=== PATIENT | female | born 1995 | race Caucasian/White ===

== ENCOUNTER → 2017-03-09 | Outpatient (CLI) | payer BC, OTHER, SELFPAY | PROVIDERS: Visit Provider Nurse Practitioner Obstetrics & Gynecology | DX: Z34.80 Encounter for supervision of other normal pregnancy, unspecified trimester (principal) | CPT/HCPCS: 86403 ==

== ENCOUNTER 2017-03-29 10:07 | Inpatient (IN) | payer BC, OTHER, SELFPAY ==
[2017-03-29] VITALS (25 sets, daily range): BP systolic 87–171; BP diastolic 42–118; PULSE 54–107; RESP 12–18; TEMP 36.2–36.6; O2SAT 95–99; BMI 34.9
--- NOTE | 2017-03-29 10:07 | HMH.ACPN ---
Internal Medicine - PN: Subj *Date: 03/29/17 *Time: 10:07 Interval history: She is a 21-year-old 3 para 2 who is 38+ weeks gestational age. She complained of losing her mucous plug. On arrival her blood pressure is extremely elevated and now it is 160/103. The nonstress test is decreased [id number] variability with an occasional mild variable. Since she is scheduled for a in 2 days we will go ahead and do a today. Exam Vital signs and Labs for Last 24 Hours: Temp Pulse Resp BP Pulse Ox 97.8 F 70 18 167/118 99 03/29/17 09:30 03/29/17 09:30 03/29/17 09:30 03/29/17 09:30 03/29/17 09:30 - Constitutional no acute distress Assessment and Plan (1) induced hypertension, delivered, current hospitalization Current visit: Yes Status: Acute Category: Medical Code(s): O13.4 - Gestational [-induced] hypertension without significant proteinuria, complicating childbirth (2) Previous section Current visit: Yes Status: Acute Category: Surgical Code(s): Z98.891 - History of uterine scar from previous surgery (3) Previous section complicating Current visit: Yes Status: Acute Category: Surgical Code(s): O34.219 - Maternal care for unspecified type scar from previous delivery (4) Sterilization Current visit: Yes Status: Acute Category: Medical Code(s): Z30.2 - Encounter for sterilization - Assessment and plan all Dx Assessment and Plan for all problems:: She has Jacobo signed her consents for a and tubal ligation. We will go ahead and schedule that for today. We will start magnesium sulfate and do blood work for PIH.
[2017-03-29 10:13] LABS: Basophils # 0.1 K/mm3 (0-0.2); Basophils % 0.9 % (0.1-2.0); Eosinophils # 0.5 K/mm3 (0.0-0.4); Eosinophils % 4.1 % (0.1-12.0); Hematocrit 40.3 % (37.0-47.0); Hemoglobin 13.3 g/dL (12.2-16.2); Lymphocytes # 4.1 K/mm3 (0.7-4.5); Lymphocytes % 33.1 K/mm3 (10-50); Mean Corpuscular HGB Conc 32.9 g/dL (31.8-35.4); Mean Corpuscular Hemoglobin 26.8 pg (27.0-31.2); Mean Corpuscular Volume 81.3 fl (81-99); Mean Platelet Volume 9.4 fl (7.4-10.4); Monocytes # 0.7 K/mm3 (0.1-1.0); Monocytes % 5.8 % (1.7-9.3); Neutrophils # 6.9 K/mm3 (1.8-7.8); Neutrophils % 56.1 % (37.0-80.0); Platelet Count 312 K/mm3 (142-424); Red Blood Count 4.95 M/mm3 (4.20-5.40); White Blood Count 12.4 K/mm3 (4.8-10.8)
[2017-03-29 10:31] LABS: Alanine Aminotransferase 9 U/L (12-78); Anion Gap 15.5 mEq/L (5-15); Aspartate Amino Transferase 19 U/L (15-37); Blood Urea Nitrogen 20 mg/dL (7-18); Carbon Dioxide 22 mmol/L (21.0-32.0); Chloride 108 mmol/L (98-107); Creatinine Clearance Estimated 121 mL/min (0-300); Creatinine,Serum 1.04 mg/dL (0.55-1.02); Estimated Glomerular Filt Rate 67 ml/min (>60); GFR (African American) 81 ML/MIN (>60); Glucose 87 mg/dL (74-106); Potassium 4.5 mmoL/L (3.5-5.1); Sodium 141 mmol/L (136-145); Uric Acid 7.3 mg/dL (2.6-7.2)
[2017-03-29 10:36] LABS: D-Dimer 691 (0-400)
[2017-03-29 10:45] LABS: Activated Partial Thrombo Time 29.7 seconds (23.6-34.0); Fibrinogen 400 mg/dL (204-500); INR 0.88 (0.9-1.1); Prothrombin Time 9.5 seconds (9.4-11.8)
--- NOTE | 2017-03-29 10:46 | PC.NURSE ---
DR ALEXANDRE NOTIFED OF D DIMER RESULT 691. NO NEW ORDERS RECEIVED.
[2017-03-29 11:08] LABS: Microscopic, Urine URINE MICROSCOPIC (MICROSCOPIC)
--- NOTE | 2017-03-29 11:24 | HMH.ANESCL ---
[facility] Anesthesia Checklist - Patient Identification Patient Identification: Arm Band, Verbal (Name & ) - Structural Data Admitted From: Home Consent for Planned Operative Procedure(s) Verified: Yes Verified Documents: Surgical Consent - NPO Status Verified Time NPO: 06:30 - Additional verifications Patient : Yes Anesthesia Reactions: No Blood Transfusion Reaction: No Cephalosporin Allergy: Yes Previous Colonoscopy: No - Cardiovascular Assessment Heart Sounds: S1 & S2 Pulse Strength: Strong Pulse Rhythm: Regular - Airway Assessment C-Spine Mobility Assessed: Yes TMJ Mobility Assessed: Yes Dentition: Good Dentition - Neurological Assessment Level of Consciousness: Awake, Alert, Appropriate Hx Seizures: No Numbness or tingling in extremities: No - Genitourinary Assessment Urinary Incontinence: None - Anesthesia Plan Anesthesia Risk discussed: Yes Anesthesia Plan: Verified ASA Class: II Anesthesia Type: Spinal [facility] Anesthesia HX I have reviewed the patient's past medical history: Yes Medical History: Reports:: Asthma, Hypertension Other Medical History: Reports: Thyroid Disease Other Surgeries: Yes: Appendectomy, , Hernia Repair *Family Hx:: No significant family history
[2017-03-29 11:26] LABS: Appearance,Urine CLEAR (Clear); Bilirubin,Urine Negative (Negative); Blood, Urine TRACE-I (Negative); Color,Urine YELLOW (Yellow); Glucose,Urine (UA) Negative (Negative); Ketones,Urine Negative (Negative); Leukocyte Esterase,Urine Negative (Negative); Nitrate,Urine Negative (Negative); Protein,Urine 3+ (Negative); Urobilinogen,Urine 0.2 EU/dl (0.2)
--- NOTE | 2017-03-29 11:28 | P.PN_ITS ---
[facility] Anesthesia Checklist - Patient Identification Patient Identification: Arm Band, Verbal (Name & ) - Structural Data Admitted From: Home Consent for Planned Operative Procedure(s) Verified: Yes Verified Documents: Surgical Consent - NPO Status Verified Time NPO: 06:30 - Additional verifications Patient : Yes Anesthesia Reactions: No Blood Transfusion Reaction: No Cephalosporin Allergy: Yes Previous Colonoscopy: No - Cardiovascular Assessment Heart Sounds: S1 & S2 Pulse Strength: Strong Pulse Rhythm: Regular - Airway Assessment C-Spine Mobility Assessed: Yes TMJ Mobility Assessed: Yes Dentition: Good Dentition - Neurological Assessment Level of Consciousness: Awake, Alert, Appropriate Hx Seizures: No Numbness or tingling in extremities: No - Genitourinary Assessment Urinary Incontinence: None - Anesthesia Plan Anesthesia Risk discussed: Yes Anesthesia Plan: Verified ASA Class: II Anesthesia Type: Spinal [facility] Anesthesia HX I have reviewed the patient's past medical history: Yes Medical History: Reports:: Asthma, Hypertension Other Medical History: Reports: Thyroid Disease Other Surgeries: Yes: Appendectomy, , Hernia Repair *Family Hx:: No significant family history
[2017-03-29 11:39] LABS: RBC,Urine Occasional #/hpf (0-3); WBC,Urine Occasional #/hpf (0-3)
[2017-03-29 11:40] LABS: Amorphous Sediment,Urine 2+ /lpf; Bacteria,Urine Trace /lpf
--- NOTE | 2017-03-29 14:07 | HMH.OPNOTE ---
Date of procedure: 03/29/17 Pre-op Diagnosis:: Term , AV section, desire for sterilization, nonreassuring heart rate tracing, desire for sterilization Post-op diagnosis:: other (Oligohydramnios, small for gestational age) Procedure performed:: Repeat lower segment transverse section and bilateral salpingectomy Surgeon:: Sridhar Griffith MD Crusher And Blender Operator(s):: Tracey Membreno VEHICLE MAINTENANCE TECHNICIAN:: Jeff Harper Anesthesia: epidural Estimated blood loss (mL): 600 Clinical Note:: She is a 21-year-old 4 para 2 aborta 1 who was 38 and 5 weeks gestational age. She came in with having lost her mucous plug. However was noted on the monitor that she was having spontaneous irritable decelerations did this drip was also nonreactive. She was scheduled for a repeat lower segment transverse section 2 days as well as a bilateral salpingectomy. Her blood pressure on arrival was 160/109. She received IV magnesium sulfate and we elected to go ahead and deliver her today. Operative findings:: She delivered a liveborn child at 1:27 PM in the afternoon of March 29, 2017. The baby had Apgars of 8 at 1 minute and 9 at 5 minutes. PH was 2 6. Ovaries and tubes appeared normal. There was significant scar tissue upon entering the abdominal cavity as well as underlying the skin. Operative note:: She was taken to the operating room where epidural anesthesia was found be adequate. She was prepped and draped in normal sterile fashion in the supine position with a leftward tilt. A Zuñiga catheter was in the bladder. A Pfannenstiel skin incision was made with knife then carried through to the underlying layer of fascia with cautery. The fascia was opened in the midline with cautery and extended laterally using Barton scissors. Sabine clamps were applied to the superior aspect of the fascial incision which was tented up and the underlying rectus muscles dissected off using cautery. The Sabine clamps were then applied to the inferior aspect of the fascial incision which in a similar fashion was tented up and the underlying rectus muscles dissected off using cautery. The rectus muscles were then in the midline, the peritoneum identified, and entered sharply with Metzenbaum scissors. This incision was then extended superiorly and inferiorly with cautery. We had good visualization of the bladder inferiorly. The bladder peritoneum was then opened in the midline and extended laterally using Metzenbaum scissors. A bladder flap was created digitally. The lower blade of the Aniya was inserted so as to push the bladder out of the way. Transverse incision was made through the uterine muscle to the amnion. This incision was then extended laterally using fingers traction. The amnion was entered sharply with knife. The infant's head was then delivered atraumatically. There was a loose nuchal cord which was easily reduced. This was followed by the anterior shoulder and the rest of the 's body atraumatically. The oropharynx and nasopharynx were bulb suctioned. The was then handed off to Dr. Rodriguez who assigned Apgars of 8 at 1 minute and 9 at 5 minutes. We then obtained cord blood as well as cord pH. PH was 7.26. Using gentle traction on the cord and countertraction on the fundus I was able to easily deliver the placenta intact. It had a normal three-vessel cord. The uterus was then cleared of clots and debris and exteriorized from the abdominal cavity. The uterine incision was then closed using running 0 Vicryl suture in a locked fashion. A second layer of the same suture was used to imbricate the first layer. The bladder peritoneum was then closed using running 2-0 Vicryl suture in a locked fashion. We then performed a bilateral salpingectomy by first grasping the distal end of the right tube and using cautery I cauterized along the mesosalpinx. I then cauterized through the tube at the cornua. This was sent to pathology at this was tati
--- NOTE | 2017-03-29 14:11 | P.OP_ITS ---
Date of procedure: 03/29/17 Pre-op Diagnosis:: Term , AV section, desire for sterilization, nonreassuring heart rate tracing, desire for sterilization Post-op diagnosis:: other (Oligohydramnios, small for gestational age) Procedure performed:: Repeat lower segment transverse section and bilateral salpingectomy Surgeon:: Sridhar Griffith MD Ground Instructor Advanced(s):: Tracey Membreno CIVIL ENGINEERING MANAGER:: Jeff Harper Anesthesia: epidural Estimated blood loss (mL): 600 Clinical Note:: She is a 21-year-old 4 para 2 aborta 1 who was 38 and 5 weeks gestational age. She came in with having lost her mucous plug. However was noted on the monitor that she was having spontaneous irritable decelerations did this drip was also nonreactive. She was scheduled for a repeat lower segment transverse section 2 days as well as a bilateral salpingectomy. Her blood pressure on arrival was 160/109. She received IV magnesium sulfate and we elected to go ahead and deliver her today. Operative findings:: She delivered a liveborn child at 1:27 PM in the afternoon of March 29, 2017. The baby had Apgars of 8 at 1 minute and 9 at 5 minutes. PH was 2 6. Ovaries and tubes appeared normal. There was significant scar tissue upon entering the abdominal cavity as well as underlying the skin. Operative note:: She was taken to the operating room where epidural anesthesia was found be adequate. She was prepped and draped in normal sterile fashion in the supine position with a leftward tilt. A Zuñiga catheter was in the bladder. A Pfannenstiel skin incision was made with knife then carried through to the underlying layer of fascia with cautery. The fascia was opened in the midline with cautery and extended laterally using Barton scissors. Sabine clamps were applied to the superior aspect of the fascial incision which was tented up and the underlying rectus muscles dissected off using cautery. The Sabine clamps were then applied to the inferior aspect of the fascial incision which in a similar fashion was tented up and the underlying rectus muscles dissected off using cautery. The rectus muscles were then in the midline, the peritoneum identified, and entered sharply with Metzenbaum scissors. This incision was then extended superiorly and inferiorly with cautery. We had good visualization of the bladder inferiorly. The bladder peritoneum was then opened in the midline and extended laterally using Metzenbaum scissors. A bladder flap was created digitally. The lower blade of the Aniya was inserted so as to push the bladder out of the way. Transverse incision was made through the uterine muscle to the amnion. This incision was then extended laterally using fingers traction. The amnion was entered sharply with knife. The infant's head was then delivered atraumatically. There was a loose nuchal cord which was easily reduced. This was followed by the anterior shoulder and the rest of the 's body atraumatically. The oropharynx and nasopharynx were bulb suctioned. The was then handed off to Dr. Rodriguez who assigned Apgars of 8 at 1 minute and 9 at 5 minutes. We then obtained cord blood as well as cord pH. PH was 7.26. Using gentle traction on the cord and countertraction on the fundus I was able to easily deliver the placenta intact. It had a normal three-vessel cord. The uterus was then cleared of clots and debris and exteriorized from the abdominal cavity. The uterine incision was then closed using running 0 Vicryl suture in a locked fashion. A second layer of the same suture was used to imbricate the first layer. The bladder peritoneum was then closed using running 2-0 Vicryl suture in a loc
--- NOTE | 2017-03-29 14:15 | P.PN_ITS ---
[facility] Anesthesia Record Part I Intake, IV Amount: 1,100 Estimated blood loss (mL): 600 Urine output (mL): 300 Blood Pressure: 121/70 SaO2: 97 Pulse Rate: 61 Respiratory Rate: 12 Temperature: 97.1 F Patient is:: Awake Stable to PACU at:: 14:10
--- NOTE | 2017-03-29 14:15 | HMH.ANESII ---
[facility] Anesthesia Record Part II Discharge Time: 14:40 Destination: Obstetric PACU nurse assessment reviewed?: Yes Patient Condition:: Good Anesthesia Complications:: None
[2017-03-29 14:53] LABS: Cord Blood PH 7.26 (7.35-7.45)
--- NOTE | 2017-03-29 17:54 | P.PN_ITS ---
Internal Medicine - PN: Subj *Date: 03/29/17 *Time: 17:53 Interval history: She has been having some bleeding . The uterus seems well contracted. She has passed a couple of golf ball size clots. I elected to place balloon. Exam Vital signs and Labs for Last 24 Hours: Temp Pulse Resp BP Pulse Ox 97.8 F 62 16 125/68 97 03/29/17 14:40 03/29/17 14:40 03/29/17 14:40 03/29/17 14:40 03/29/17 14:40 Laboratory Results - last 24 hr 03/29/17 09:55: Blood Type B Negative, Antibody Screen Negative 03/29/17 09:55: WBC 12.4 H, RBC 4.95, Hgb 13.3, Hct 40.3, MCV 81.3, MCH 26.8 L, MCHC 32.9, RDW 14.0, Plt Count 312, MPV 9.4, Neut % (Auto) 56.1, Lymph % (Auto) 33.1, [place] % (Auto) 5.8, Eos % (Auto) 4.1, Baso % (Auto) 0.9, Neut # (Auto) 6.9 , Lymph # (Auto) 4.1, [place] # (Auto) 0.7, Eos # (Auto) 0.5 H, Baso # (Auto) 0.1 03/29/17 09:55: PT 9.5, INR 0.88 L, APTT 29.7, Fibrinogen 400, D-Dimer 691 H* 03/29/17 09:55: Sodium 141, Potassium 4.5, Chloride 108 H, Carbon Dioxide 22, Anion Gap 15.5 H, BUN 20 H, Creatinine 1.04 H, Estimated Creat Clear 121, Estimated GFR 67, Est GFR ( Amer) 81, Glucose 87, Uric Acid 7.3 H, AST 19 , ALT 9 L 03/29/17 10:20: Urine Color Yellow, Urine Appearance Clear, Urine pH 6.0, Ur Specific [place] 1.020, Urine Protein 3+, Urine Glucose (UA) Negative, Urine Ketones Negative, Urine Blood Trace-i, Urine Nitrate Negative, Urine Bilirubin Negative, Urine Urobilinogen 0.2, Ur Leukocyte Esterase Negative, Urine RBC Occasional, Urine WBC Occasional, Ur Squamous Epith Cells 3-5, Amorphous Sediment 2+, Urine Bacteria Trace 03/29/17 13:30: Cord ABG pH 7.26 L I & O for Last 24 hours: Intake & Output 03/27/17 03/28/17 03/29/17 03/30/17 11:59 11:59 11:59 11:59 Intake Total 2450 / 2450 Output Total 105 / 105 Balance 2345 / 2345 - Constitutional no acute distress Assessment and Plan (1) induced hypertension, delivered, current hospitalization Current visit: Yes Status: Acute Category: Medical Code(s): O13.4 - Gestational [-induced] hypertension without significant proteinuria, complicating childbirth (2) Previous section Current visit: Yes Status: Acute Category: Surgical Code(s): Z98.891 - History of uterine scar from previous surgery (3) Previous section complicating Current visit: Yes Status: Acute Category: Surgical Code(s): O34.219 - Maternal care for unspecified type scar from previous delivery (4) Sterilization Current visit: Yes Status: Acute Category: Medical Code(s): Z30.2 - Encounter for sterilization - Assessment and plan all Dx Assessment and Plan for all problems:: She is having bleeding and I have inserted a balloon catheter. We injected 240 cc of saline. Her bleeding seems to have settled.
[2017-03-29 18:29] LABS: Hematocrit 37.3 % (37.0-47.0)
--- NOTE | 2017-03-29 20:15 | PC.NURSE ---
PT REFUSED TORODOL AT THIS TIME. PTS RATES PAIN A 5/10 PTS BP DROPPED AFTER PAIN MEDICATION AT 1901 AND PT NOT WANTING MEDICATION AT THIS TIME WILL CONTINUE TO MONITOR PAIN
[2017-03-30] VITALS (28 sets, daily range): BP systolic 106–152; BP diastolic 59–90; PULSE 68–100; RESP 17–20; TEMP 36.5–37; O2SAT 94–100
[2017-03-30 06:35] LABS: Basophils # 0.1 K/mm3 (0-0.2); Eosinophils % 0.1 % (0.1-12.0); Mean Corpuscular Hemoglobin 26.4 pg (27.0-31.2); Monocytes # 1.4 K/mm3 (0.1-1.0); Red Cell Distribution Width 14.2 % (11.5-17.5)
[2017-03-30 06:53] LABS: Basophils % 0.2 % (0.1-2.0); Hematocrit 30.5 % (37.0-47.0); Lymphocytes % 13.4 K/mm3 (10-50); Mean Corpuscular HGB Conc 31.3 g/dL (31.8-35.4); Mean Corpuscular Volume 84.4 fl (81-99); Mean Platelet Volume 10.2 fl (7.4-10.4); Monocytes % 4.6 % (1.7-9.3); Neutrophils % 81.6 % (37.0-80.0); Platelet Count 341 K/mm3 (142-424); Red Blood Count 3.61 M/mm3 (4.20-5.40); White Blood Count 29.4 K/mm3 (4.8-10.8)
[2017-03-30 06:59] LABS: Hemoglobin 9.5 g/dL (12.2-16.2)
[2017-03-30 07:01] LABS: MANUAL DIFFERENTIAL MANUAL DIFFERENTIAL (MANUAL DIFF)
--- NOTE | 2017-03-30 07:44 | HMH.PHAVTE ---
[facility] Pharmacy VTE Monitoring - Patient Demographics Admission date: 03/29/17 Report Date: 03/30/17 Time: 07:44 Allergies/Adverse Reactions: Penicillins Allergy (Intermediate, Verified 03/29/17 12:41) I-RASH peanut Allergy (Unknown, Verified 03/29/17 12:41) Allergy test showed pt allergic to peanuts Height: 1.6 m Weight: 89.471 kg Patient Problems: Current Active Problems induced hypertension, delivered, current hospitalization (Acute) Previous section (Acute) Previous section complicating (Acute) Sterilization (Acute) - VTE Risk Labs: VTE Related Lab Results Hgb 9.5 g/dL (12.2-16.2) L D 03/30/17 06:06 Hct 30.5 % (37.0-47.0) L 03/30/17 06:06 Plt Count 341 K/mm3 (142-424) 03/30/17 06:06 PT 9.5 seconds (9.4-11.8) 03/29/17 09:55 INR 0.88 (0.9-1.1) L 03/29/17 09:55 APTT 29.7 seconds (23.6-34.0) 03/29/17 09:55 Fibrinogen 400 mg/dL (204-500) 03/29/17 09:55 BUN 20 mg/dL (7-18) H 03/29/17 09:55 Creatinine 1.04 mg/dL (0.55-1.02) H 03/29/17 09:55 Estimated Creat Clear 121 mL/min (0-300) 03/29/17 09:55 Clinical Trial Participant: No - Prophylaxis VTE Prophylaxis Ordered?: Yes Types of VTE Prophylaxis: IPCS Knee High
[2017-03-30 07:58] LABS: Hypochromasia 1+; Lymphocytes % 17 % (10-50); Monocytes % 5 % (2-9); Neutrophils % 75 % (42-76); Platelet Estimate Normal; Total Cells Counted 100
--- NOTE | 2017-03-30 08:02 | HMH.ACPN ---
Internal Medicine - PN: Subj *Date: 03/30/17 *Time: 08:02 Interval history: She is doing better this morning. We had inserted an intrauterine balloon yesterday and she is no longer bleeding. I removed the balloon this morning. Pain is reasonably well controlled. Her lochia is normal. She is bottlefeeding. Exam Vital signs and Labs for Last 24 Hours: Temp Pulse Resp BP Pulse Ox 97.6 F 78 16 134/75 96 03/29/17 14:50 03/29/17 20:30 03/29/17 14:40 03/29/17 20:30 03/29/17 19:12 Laboratory Results - last 24 hr 03/29/17 09:25: Magnesium 2.0 03/29/17 09:55: Blood Type B Negative, Antibody Screen Negative 03/29/17 09:55: WBC 12.4 H, RBC 4.95, Hgb 13.3, Hct 40.3, MCV 81.3, MCH 26.8 L, MCHC 32.9, RDW 14.0, Plt Count 312, MPV 9.4, Neut % (Auto) 56.1, Lymph % (Auto) 33.1, [place] % (Auto) 5.8, Eos % (Auto) 4.1, Baso % (Auto) 0.9, Neut # (Auto) 6.9, Lymph # (Auto) 4.1, [place] # (Auto) 0.7, Eos # (Auto) 0.5 H, Baso # (Auto) 0.1 03/29/17 09:55: PT 9.5, INR 0.88 L, APTT 29.7, Fibrinogen 400, D-Dimer 691 H* 03/29/17 09:55: Sodium 141, Potassium 4.5, Chloride 108 H, Carbon Dioxide 22, Anion Gap 15.5 H, BUN 20 H, Creatinine 1.04 H, Estimated Creat Clear 121, Estimated GFR 67, Est GFR ( Amer) 81, Glucose 87, Uric Acid 7.3 H, AST 19, ALT 9 L 03/29/17 10:20: Urine Color Yellow, Urine Appearance Clear, Urine pH 6.0, Ur Specific [place] 1.020, Urine Protein 3+, Urine Glucose (UA) Negative, Urine Ketones Negative, Urine Blood Trace-i, Urine Nitrate Negative, Urine Bilirubin Negative, Urine Urobilinogen 0.2, Ur Leukocyte Esterase Negative, Urine RBC Occasional, Urine WBC Occasional, Ur Squamous Epith Cells 3-5, Amorphous Sediment 2+, Urine Bacteria Trace 03/29/17 13:30: Cord ABG pH 7.26 L 03/29/17 18:15: Hgb 12.0 L, Hct 37.3 03/30/17 06:06: WBC 29.4 H* D, RBC 3.61 L D, Hgb 9.5 L D, Hct 30.5 L, MCV 84.4, MCH 26.4 L, MCHC 31.3 L, RDW 14.2, Plt Count 341, MPV 10.2, Neut % (Auto) 81.6 H, Lymph % (Auto) 13.4, [place] % (Auto) 4.6, Eos % (Auto) 0.1, Baso % (Auto) 0.2, Neut # (Auto) 24.0 H, Lymph # (Auto) 4.0, [place] # (Auto) 1.4 H, Eos # (Auto) 0.0, Baso # (Auto) 0.1, Total Counted 100, Neutrophils % (Manual) 75, Band Neutrophils % 2.0, Lymphocytes % (Manual) 17, Monocytes % (Manual) 5, Basophils % (Manual) 1.0, Platelet Estimate Normal, Hypochromasia 1+ I & O for Last 24 hours: Intake & Output 03/27/17 03/28/17 03/29/17 03/30/17 11:59 11:59 11:59 11:59 Intake Total 2450 / 2450 Output Total 105 / 105 Balance 2345 / 2345 - Constitutional no acute distress Assessment and Plan (1) induced hypertension, delivered, current hospitalization Current visit: Yes Status: Acute Category: Medical Code(s): O13.4 - Gestational [-induced] hypertension without significant proteinuria, complicating childbirth (2) Previous section Current visit: Yes Status: Acute Category: Surgical Code(s): Z98.891 - History of uterine scar from previous surgery (3) Previous section complicating Current visit: Yes Status: Acute Category: Surgical Code(s): O34.219 - Maternal care for unspecified type scar from previous delivery (4) Sterilization Current visit: Yes Status: Acute Category: Medical Code(s): Z30.2 - Encounter for sterilization - Assessment and plan all Dx Assessment and Plan for all problems:: Is doing well and I removed her intrauterine balloon. Her hemoglobin is stable. We will plan to send her home in 48 hours.
--- NOTE | 2017-03-30 08:05 | P.PN_ITS ---
Internal Medicine - PN: Subj *Date: 03/30/17 *Time: 08:02 Interval history: She is doing better this morning. We had inserted an intrauterine balloon yesterday and she is no longer bleeding. I removed the balloon this morning. Pain is reasonably well controlled. Her lochia is normal. She is bottlefeeding. Exam Vital signs and Labs for Last 24 Hours: Temp Pulse Resp BP Pulse Ox 97.6 F 78 16 134/75 96 03/29/17 14:50 03/29/17 20:30 03/29/17 14:40 03/29/17 20:30 03/29/17 19:12 Laboratory Results - last 24 hr 03/29/17 09:25: Magnesium 2.0 03/29/17 09:55: Blood Type B Negative, Antibody Screen Negative 03/29/17 09:55: WBC 12.4 H, RBC 4.95, Hgb 13.3, Hct 40.3, MCV 81.3, MCH 26.8 L, MCHC 32.9, RDW 14.0, Plt Count 312, MPV 9.4, Neut % (Auto) 56.1, Lymph % (Auto) 33.1, [place] % (Auto) 5.8, Eos % (Auto) 4.1, Baso % (Auto) 0.9, Neut # (Auto) 6.9 , Lymph # (Auto) 4.1, [place] # (Auto) 0.7, Eos # (Auto) 0.5 H, Baso # (Auto) 0.1 03/29/17 09:55: PT 9.5, INR 0.88 L, APTT 29.7, Fibrinogen 400, D-Dimer 691 H* 03/29/17 09:55: Sodium 141, Potassium 4.5, Chloride 108 H, Carbon Dioxide 22, Anion Gap 15.5 H, BUN 20 H, Creatinine 1.04 H, Estimated Creat Clear 121, Estimated GFR 67, Est GFR ( Amer) 81, Glucose 87, Uric Acid 7.3 H, AST 19 , ALT 9 L 03/29/17 10:20: Urine Color Yellow, Urine Appearance Clear, Urine pH 6.0, Ur Specific [place] 1.020, Urine Protein 3+, Urine Glucose (UA) Negative, Urine Ketones Negative, Urine Blood Trace-i, Urine Nitrate Negative, Urine Bilirubin Negative, Urine Urobilinogen 0.2, Ur Leukocyte Esterase Negative, Urine RBC Occasional, Urine WBC Occasional, Ur Squamous Epith Cells 3-5, Amorphous Sediment 2+, Urine Bacteria Trace 03/29/17 13:30: Cord ABG pH 7.26 L 03/29/17 18:15: Hgb 12.0 L, Hct 37.3 03/30/17 06:06: WBC 29.4 H* D, RBC 3.61 L D, Hgb 9.5 L D, Hct 30.5 L, MCV 84.4, MCH 26.4 L, MCHC 31.3 L, RDW 14.2, Plt Count 341, MPV 10.2, Neut % (Auto) 81.6 H , Lymph % (Auto) 13.4, [place] % (Auto) 4.6, Eos % (Auto) 0.1, Baso % (Auto) 0.2, Neut # (Auto) 24.0 H, Lymph # (Auto) 4.0, [place] # (Auto) 1.4 H, Eos # (Auto) 0.0 , Baso # (Auto) 0.1, Total Counted 100, Neutrophils % (Manual) 75, Band Neutrophils % 2.0, Lymphocytes % (Manual) 17, Monocytes % (Manual) 5, Basophils % (Manual) 1.0, Platelet Estimate Normal, Hypochromasia 1+ I & O for Last 24 hours: Intake & Output 03/27/17 03/28/17 03/29/17 03/30/17 11:59 11:59 11:59 11:59 Intake Total 2450 / 2450 Output Total 105 / 105 Balance 2345 / 2345 - Constitutional no acute distress Assessment and Plan (1) induced hypertension, delivered, current hospitalization Current visit: Yes Status: Acute Category: Medical Code(s): O13.4 - Gestational [-induced] hypertension without significant proteinuria, complicating childbirth (2) Previous section Current visit: Yes Status: Acute Category: Surgical Code(s): Z98.891 - History of uterine scar from previous surgery (3) Previous section complicating Current visit: Yes Status: Acute Category: Surgical Code(s): O34.219 - Maternal care for unspecified type scar from previous delivery (4) Sterilization Current visit: Yes Status: Acute Category: Medical Code(s): Z30.2 - Encounter for sterilization - Assessment and plan all Dx Assessment and Plan for all problems:: Is doing well and I removed her intrauterine balloon. Her hemoglobin is stable. We will plan to send her home in 48 hours.
--- NOTE | 2017-03-30 10:19 | PC.NURSE ---
0800 BACAURI BALLOON REMOVED BY DR. ALEXANDRE AT THIS TIME. PATIENT TOLERATED THIS WELL, TOTAL OF 450 ML OF BLOOD SINCE 1400 03/29/2017 YESTERDAY WAS REMOVED FROM THE COLLECTION BAG. DR. ALEXANDRE WOULD LIKE HER TO GET UP TODAY AND SHOWER AND AMBULATE SOME.
--- NOTE | 2017-03-30 10:24 | PC.NURSE ---
0800 DTR'S DONE ON THE PATIENT AND WERE 1+ PATTELLAR AND NEGATIVE CLONUS AT THIS TIME, PATIENT IS CURRENTLY OFF THE MAGNESIUM DRIP AND HER PITOCIN AT THIS TIME.
--- NOTE | 2017-03-30 11:59 | PC.NURSE ---
DTR'S CHECKED AND NEGATIVE FOR CLONUS, 1+ PATTELLA REFLEX NOTED, STILL DIZZY, DENIES HEADACHE, BLURRED VISION OR SPOTS. MEDICATED AT 11:10 FOR INCISIONAL PAIN 10/10 ON NUMBER PAIN SCALE RATES PAIN 6/10 NOW ON NUMBER PAIN SCALE. DOZING AND RESTING MORE COMFORTABLE. DAD IS HOLDING NB AT THIS TIME.
--- NOTE | 2017-03-30 13:49 | HMH.ACPN ---
Internal Medicine - PN: Subj *Date: 03/30/17 *Time: 13:49 Interval history: She has been feeling lightheaded this morning. Every time she stands up she feels lightheaded. She is very pale looking. Her hemoglobin this morning was 9.5. Exam Vital signs and Labs for Last 24 Hours: Temp Pulse Resp BP Pulse Ox 98.1 F 88 18 106/59 96 03/30/17 11:57 03/30/17 11:57 03/30/17 11:57 03/30/17 11:57 03/30/17 11:57 Laboratory Results - last 24 hr 03/29/17 09:25: Magnesium 2.0 03/29/17 13:30: Cord ABG pH 7.26 L 03/29/17 18:15: Hgb 12.0 L, Hct 37.3 03/30/17 06:06: WBC 29.4 H* D, RBC 3.61 L D, Hgb 9.5 L D, Hct 30.5 L, MCV 84.4, MCH 26.4 L, MCHC 31.3 L, RDW 14.2, Plt Count 341, MPV 10.2, Neut % (Auto) 81.6 H, Lymph % (Auto) 13.4, [place] % (Auto) 4.6, Eos % (Auto) 0.1, Baso % (Auto) 0.2, Neut # (Auto) 24.0 H, Lymph # (Auto) 4.0, [place] # (Auto) 1.4 H, Eos # (Auto) 0.0, Baso # (Auto) 0.1, Total Counted 100, Neutrophils % (Manual) 75, Band Neutrophils % 2.0, Lymphocytes % (Manual) 17, Monocytes % (Manual) 5, Basophils % (Manual) 1.0, Platelet Estimate Normal, Hypochromasia 1+ 03/30/17 10:50: Blood Type B Negative, Antibody Screen Negative, Screen Negative, Baby's Rh Status Positive I & O for Last 24 hours: Intake & Output 03/28/17 03/29/17 03/30/17 03/31/17 11:59 11:59 11:59 11:59 Intake Total 2450 / 2450 Output Total 105 / 105 Balance 2345 / 2345 - Constitutional no acute distress - *Routine Skin Exam Comments: Her skin looks pale. Assessment and Plan (1) induced hypertension, delivered, current hospitalization Current visit: Yes Status: Acute Category: Medical Code(s): O13.4 - Gestational [-induced] hypertension without significant proteinuria, complicating childbirth (2) Previous section Current visit: Yes Status: Acute Category: Surgical Code(s): Z98.891 - History of uterine scar from previous surgery (3) Previous section complicating Current visit: Yes Status: Acute Category: Surgical Code(s): O34.219 - Maternal care for unspecified type scar from previous delivery (4) Sterilization Current visit: Yes Status: Acute Category: Medical Code(s): Z30.2 - Encounter for sterilization - Assessment and plan all Dx Assessment and Plan for all problems:: I suspect she may have some internal bleeding. We will get an H&H right now and we will type and cross her for 2 units. We will monitor her hemoglobin and if she continues to drop we may need to return her to the operating room. Her vital signs are stable. Her blood pressure is stable. Her heart rate is slightly elevated at 88.
--- NOTE | 2017-03-30 13:52 | P.PN_ITS ---
Internal Medicine - PN: Subj *Date: 03/30/17 *Time: 13:49 Interval history: She has been feeling lightheaded this morning. Every time she stands up she feels lightheaded. She is very pale looking. Her hemoglobin this morning was 9.5. Exam Vital signs and Labs for Last 24 Hours: Temp Pulse Resp BP Pulse Ox 98.1 F 88 18 106/59 96 03/30/17 11:57 03/30/17 11:57 03/30/17 11:57 03/30/17 11:57 03/30/17 11:57 Laboratory Results - last 24 hr 03/29/17 09:25: Magnesium 2.0 03/29/17 13:30: Cord ABG pH 7.26 L 03/29/17 18:15: Hgb 12.0 L, Hct 37.3 03/30/17 06:06: WBC 29.4 H* D, RBC 3.61 L D, Hgb 9.5 L D, Hct 30.5 L, MCV 84.4, MCH 26.4 L, MCHC 31.3 L, RDW 14.2, Plt Count 341, MPV 10.2, Neut % (Auto) 81.6 H , Lymph % (Auto) 13.4, [place] % (Auto) 4.6, Eos % (Auto) 0.1, Baso % (Auto) 0.2, Neut # (Auto) 24.0 H, Lymph # (Auto) 4.0, [place] # (Auto) 1.4 H, Eos # (Auto) 0.0 , Baso # (Auto) 0.1, Total Counted 100, Neutrophils % (Manual) 75, Band Neutrophils % 2.0, Lymphocytes % (Manual) 17, Monocytes % (Manual) 5, Basophils % (Manual) 1.0, Platelet Estimate Normal, Hypochromasia 1+ 03/30/17 10:50: Blood Type B Negative, Antibody Screen Negative, Screen Negative, Baby's Rh Status Positive I & O for Last 24 hours: Intake & Output 03/28/17 03/29/17 03/30/17 03/31/17 11:59 11:59 11:59 11:59 Intake Total 2450 / 2450 Output Total 105 / 105 Balance 2345 / 2345 - Constitutional no acute distress - *Routine Skin Exam Comments: Her skin looks pale. Assessment and Plan (1) induced hypertension, delivered, current hospitalization Current visit: Yes Status: Acute Category: Medical Code(s): O13.4 - Gestational [-induced] hypertension without significant proteinuria, complicating childbirth (2) Previous section Current visit: Yes Status: Acute Category: Surgical Code(s): Z98.891 - History of uterine scar from previous surgery (3) Previous section complicating Current visit: Yes Status: Acute Category: Surgical Code(s): O34.219 - Maternal care for unspecified type scar from previous delivery (4) Sterilization Current visit: Yes Status: Acute Category: Medical Code(s): Z30.2 - Encounter for sterilization - Assessment and plan all Dx Assessment and Plan for all problems:: I suspect she may have some internal bleeding. We will get an H&H right now and we will type and cross her for 2 units. We will monitor her hemoglobin and if she continues to drop we may need to return her to the operating room. Her vital signs are stable. Her blood pressure is stable. Her heart rate is slightly elevated at 88.
[2017-03-30 14:14] LABS: Hematocrit 25.3 % (37.0-47.0)
[2017-03-30 14:18] LABS: Hemoglobin 8.1 g/dL (12.2-16.2)
[2017-03-30 15:08] LABS: Microscopic, Urine URINE MICROSCOPIC (MICROSCOPIC)
[2017-03-30 15:10] LABS: Appearance,Urine CLOUDY (Clear); Bilirubin,Urine Negative (Negative); Blood, Urine 3+ (Negative); Color,Urine DK YELLOW (Yellow); Glucose,Urine (UA) Negative (Negative); Ketones,Urine Negative (Negative); Leukocyte Esterase,Urine TRACE (Negative); Nitrate,Urine Negative (Negative); Protein,Urine TRACE (Negative); Specific Gravity, Urine >= 1.030 (1.005-1.030); Urobilinogen,Urine 0.2 EU/dl (0.2)
[2017-03-30 16:31] LABS: Bacteria,Urine 2+ /lpf; RBC,Urine TNTC #/hpf (0-3); WBC,Urine Occasional #/hpf (0-3)
[2017-03-30 16:32] LABS: Hyaline Casts,Urine Occasional #/lpf (0); Transitional Epi Cells,Urine OCC #/lpf (0-3)
[2017-03-30 20:38] LABS: Hematocrit 31.6 % (37.0-47.0)
[2017-03-30 21:02] LABS: Hemoglobin 10.2 g/dL (12.2-16.2)
[2017-03-31 07:18] LABS: Basophils # 0.1 K/mm3 (0-0.2); Basophils % 0.4 % (0.1-2.0); Eosinophils # 0.4 K/mm3 (0.0-0.4); Hematocrit 30.1 % (37.0-47.0); Hemoglobin 9.9 g/dL (12.2-16.2); Lymphocytes # 5.1 K/mm3 (0.7-4.5); Lymphocytes % 27.2 K/mm3 (10-50); Mean Corpuscular HGB Conc 32.8 g/dL (31.8-35.4); Mean Corpuscular Hemoglobin 28.5 pg (27.0-31.2); Mean Corpuscular Volume 86.8 fl (81-99); Mean Platelet Volume 9.4 fl (7.4-10.4); Monocytes # 1.2 K/mm3 (0.1-1.0); Monocytes % 6.5 % (1.7-9.3); Neutrophils % 63.9 % (37.0-80.0); Platelet Count 230 K/mm3 (142-424); Red Blood Count 3.46 M/mm3 (4.20-5.40); Red Cell Distribution Width 14.4 % (11.5-17.5); White Blood Count 18.8 K/mm3 (4.8-10.8)
[2017-03-31 07:37] LABS: MANUAL DIFFERENTIAL MANUAL DIFFERENTIAL (MANUAL DIFF)
--- NOTE | 2017-03-31 08:25 | P.PN_ITS ---
Internal Medicine - PN: Subj *Date: 03/31/17 *Time: 08:23 Interval history: She is doing very well this morning. She is eating and drinking and ambulating. She is bottlefeeding. She received 2 units of blood last night and her hemoglobin is stable at 9.9. It was 10.1 last night. Her pain is well controlled. Her urine output is good. Exam Vital signs and Labs for Last 24 Hours: Temp Pulse Resp BP Pulse Ox 98.0 F 88 17 140/78 94 L 03/30/17 20:35 03/30/17 20:35 03/30/17 20:35 03/30/17 20:35 03/30/17 20:35 Laboratory Results - last 24 hr 03/30/17 10:50: Blood Type B Negative, Antibody Screen Negative, Screen Negative, Baby's Rh Status Positive, Crossmatch (AHG) See Detail 03/30/17 13:51: Hgb 8.1 L D, Hct 25.3 L 03/30/17 14:23: Urine Color Dk yellow, Urine Appearance Cloudy, Urine pH 5.0, Ur Specific [place] >= 1.030, Urine Protein Trace, Urine Glucose (UA) Negative, Urine Ketones Negative, Urine Blood 3+, Urine Nitrate Negative, Urine Bilirubin Negative, Urine Urobilinogen 0.2, Ur Leukocyte Esterase Trace, Urine RBC Tntc, Urine WBC Occasional, Ur Squamous Epith Cells 3-5, Ur Transition Epith Cell Occ , Urine Bacteria 2+, Hyaline Casts Occasional 03/30/17 15:07: Rhogam Infusion Rhogam release 03/30/17 20:31: Hgb 10.2 L D, Hct 31.6 L 03/31/17 06:55: WBC 18.8 H D, RBC 3.46 L, Hgb 9.9 L, Hct 30.1 L, MCV 86.8, MCH 28.5, MCHC 32.8, RDW 14.4, Plt Count 230 D, MPV 9.4, Neut % (Auto) 63.9, Lymph % (Auto) 27.2, [place] % (Auto) 6.5, Eos % (Auto) 2.0, Baso % (Auto) 0.4, Neut # ( Auto) 12.0 H, Lymph # (Auto) 5.1 H, [place] # (Auto) 1.2 H, Eos # (Auto) 0.4, Baso # (Auto) 0.1 I & O for Last 24 hours: Intake & Output 03/28/17 03/29/17 03/30/17 03/31/17 11:59 11:59 11:59 11:59 Intake Total 2450 / 2450 118 / 118 Output Total 105 / 105 Balance 2345 / 2345 118 / 118 - Constitutional no acute distress Comments: Her color is good. Assessment and Plan (1) induced hypertension, delivered, current hospitalization Current visit: Yes Status: Acute Category: Medical Code(s): O13.4 - Gestational [-induced] hypertension without significant proteinuria, complicating childbirth (2) Previous section Current visit: Yes Status: Acute Category: Surgical Code(s): Z98.891 - History of uterine scar from previous surgery (3) Previous section complicating Current visit: Yes Status: Acute Category: Surgical Code(s): O34.219 - Maternal care for unspecified type scar from previous delivery (4) Sterilization Current visit: Yes Status: Acute Category: Medical Code(s): Z30.2 - Encounter for sterilization (5) Anemia Current visit: Yes Status: Acute Category: Medical Code(s): D64.9 - Anemia , unspecified - Assessment and plan all Dx Assessment and Plan for all problems:: She is doing much better this morning. She is eating and drinking and ambulating. Her urine output has been good overnight. Her hemoglobin is stable. We will plan to send her home tomorrow.
--- NOTE | 2017-03-31 08:49 | PC.NURSE ---
0750 PATIENT DOING WELL THIS AM, RECEIVED 2 UNITS OF PRBC'S YESTERDAY AND COLOR IS MUCH BETTER, DIZZINESS IS RESLOLVED, PATIENT WAS ABLE TO SHOWER LAST NIGHT. DTR'S WERE 1+ PATELLAR REFLEX AND NEGATIVE CLONUS. STILL HAS ABOUT 1+ EDEMA NOTED TO HER FEET AND TIBIAS.
[2017-03-31 09:32] LABS: Eosinophils % 3 % (0-3); Hypochromasia 1+; Lymphocytes % 24 % (10-50); Monocytes % 4 % (2-9); Neutrophils % 69 % (42-76); Platelet Estimate Normal; Total Cells Counted 100
--- NOTE | 2017-03-31 11:28 | SW/DCPLANNER ---
Went in to see patient this morning: Ran into Dr Griffith yesterday in the [facility] and he expressed concerns about her living situation with a new baby. I had a long conversation with her this morning, she stated she has 2 other children, a three yr old and one year old and a . 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 I asked her if she had everything she needed to take this baby home and she said yes...She received 2 units of blood yesterday and feels much better...she will discharge home soon..unless something arises the will discharge home with parents..
--- NOTE | 2017-03-31 18:39 | PC.NURSE ---
PATIENT HAD A BETTER DAY, PATELLA REFLEX 1+ AND NEGATIVE CLONUS, COLOR MUCH BETTER, AMBULATING UP IN THE ROOM AND FEELING MUCH BETTER.
--- NOTE | 2017-04-01 10:33 | P.PN_ITS ---
Internal Medicine - PN: Subj *Date: 04/01/17 *Time: 10:32 Interval history: She is doing very well this morning. She received 2 units of blood 48 hours ago. Her hemoglobin has stabilized at 9.9. She feels much better. She is eating and drinking and ambulating. She is voiding well. She is bottlefeeding. Exam Vital signs and Labs for Last 24 Hours: Temp Pulse Resp BP Pulse Ox 98.0 F 88 17 140/78 94 L 03/30/17 20:35 03/30/17 20:35 03/30/17 20:35 03/30/17 20:35 03/30/17 20:35 I & O for Last 24 hours: Intake & Output 03/29/17 03/30/17 03/31/17 04/01/17 11:59 11:59 11:59 11:59 Intake Total 2450 / 2450 118 / 118 Output Total 105 / 105 Balance 2345 / 2345 118 / 118 Weight 197 lb 4 oz 197 lb 4 oz Microbiology Reports for the Last 24 Hours: Microbiology 03/30/17 14:23 Urine,Catheterized Urine Culture - Preliminary NO GROWTH AFTER 24 HOURS - Constitutional no acute distress Assessment and Plan (1) induced hypertension, delivered, current hospitalization Current visit: Yes Status: Acute Category: Medical Code(s): O13.4 - Gestational [-induced] hypertension without significant proteinuria, complicating childbirth (2) Previous section Current visit: Yes Status: Acute Category: Surgical Code(s): Z98.891 - History of uterine scar from previous surgery (3) Previous section complicating Current visit: Yes Status: Acute Category: Surgical Code(s): O34.219 - Maternal care for unspecified type scar from previous delivery (4) Sterilization Current visit: Yes Status: Acute Category: Medical Code(s): Z30.2 - Encounter for sterilization (5) Anemia Current visit: Yes Status: Acute Category: Medical Code(s): D64.9 - Anemia , unspecified - Assessment and plan all Dx Assessment and Plan for all problems:: She is doing very well and we will plan to send her home today.
--- NOTE | 2017-04-01 10:33 | HMH.DCSUM ---
General - General Admission date: 03/29/17 Discharge date: 04/01/17 HPI HPI: She is a 21-year-old 4 now para 3 aborta 1 who was 38+ weeks gestational age. She came into labor and delivery having lost her mucous plug. She felt unwell. Her blood pressure was elevated and she was having some variable decelerations with a nonreactive strip with decreased beat to blood ability. She had been scheduled for a on 31 March so we elected to perform her that day. Objective Vital signs: Temp Pulse Resp BP Pulse Ox 98.0 F 88 17 140/78 94 L 03/30/17 20:35 03/30/17 20:35 03/30/17 20:35 03/30/17 20:35 03/30/17 20:35 no acute distress Hospital Course Hospital Course: She underwent a repeat transverse section and bilateral salpingectomy on March 29, 2017. She delivered a liveborn male child at 1:27 PM in the afternoon of March 29, 2017. The baby was a liveborn male child weighing 5 lbs. 1 oz. and was 17 inches long. He had Apgars of 8 at 1 minute and 9 at 5 minutes. He look quite wasted and there was minimal fluid around the baby. She was initially doing but began to have some dizziness and a repeat hemoglobin the following day was 8.1. As result of that I elected to transfuse her 2 units. Her hemoglobin came up to 10.1 and the next morning it was 9.9. She is doing very well and eating and drinking and ablating. She no longer has any episodes of feeling lightheaded or dizzy. She has been up walking around. Her lochia is normal. She has B- blood, she is rubella immune and was group B streptococcus negative. She did receive RhoGam. She underwent a bilateral salpingectomy at the time of her date She is bottlefeeding. Her seam hammerer is Dr. Rodriguez. Results Labs on day of discharge: Preliminary micro results at discharge 03/30/17 14:23 Urine Culture - Preliminary Urine,Catheterized NO GROWTH AFTER 24 HOURS DS: Diagnosis - Discharge Diagnosis (1) induced hypertension, delivered, current hospitalization Status: Acute (2) Previous section Status: Acute (3) Previous section complicating Status: Acute (4) Sterilization Status: Acute (5) Anemia Status: Acute Meds Home Medications Medication Instructions Recorded Confirmed Type levothyroxine 25 mcg capsule 25 mcg PO QDAY cap 03/24/17 03/29/17 History Albuterol Sulfate [Proventil-HFA 2 puffs IH Q4HP PRN 03/29/17 03/29/17 History 90mcg/puff Inh] Budesonide/Formoterol Fumarate 2 puffs IH DAILY 03/29/17 03/29/17 History [Symbicort 160-4.5 Mcg Inhaler] Allergies Allergy/AdvReac Type Severity Reaction Status Date / Time Penicillins Allergy Intermediate I-RASH Verified 03/29/17 12:41 peanut Allergy Unknown Allergy Verified 03/29/17 12:41 test showed pt allergic to peanuts Discharge Plan - Patient Discharge Instructions Diet: advance to your usual diet - Follow up Plan Disposition: Home, Self-Sen[facility] Living Medications: Home Medications Medication Instructions Recorded Confirmed Type levothyroxine 25 mcg capsule 25 mcg PO QDAY cap 03/24/17 03/29/17 History Albuterol Sulfate [Proventil-HFA 2 puffs IH Q4HP PRN 03/29/17 03/29/17 History 90mcg/puff Inh] Budesonide/Formoterol Fumarate 2 puffs IH DAILY 03/29/17 03/29/17 History [Symbicort 160-4.5 Mcg Inhaler] Prescriptions/Medication Reconciliation: New Oxycodone HCl [OxyIR 5mg tablet] 5 mg PO Q4HP PRN #30 tablet PRN Reason: Moderate To Severe Pain Vits96/Iron Fum/Folic [ MVI w/Iron Tablet] 1 each PO 1700 tablet Continue levothyroxine 25 mcg capsule 25 mcg PO QDAY cap Budesonide/Formoterol Fumarate [Symbicort 160-4.5 Mcg Inhaler] 2 puffs IH DAILY Albuterol Sulfate [Proventil-HFA 90mcg/puff Inh] 2 puffs IH Q4HP PRN PRN Reason: ASTHMA - Vacc
--- NOTE | 2017-04-01 10:38 | P.DS_ITS ---
General - General Admission date: 03/29/17 Discharge date: 04/01/17 HPI HPI: She is a 21-year-old 4 now para 3 aborta 1 who was 38+ weeks gestational age. She came into labor and delivery having lost her mucous plug. She felt unwell. Her blood pressure was elevated and she was having some variable decelerations with a nonreactive strip with decreased beat to blood ability. She had been scheduled for a on 31 March so we elected to perform her that day. Objective Vital signs: Temp Pulse Resp BP Pulse Ox 98.0 F 88 17 140/78 94 L 03/30/17 20:35 03/30/17 20:35 03/30/17 20:35 03/30/17 20:35 03/30/17 20:35 no acute distress Hospital Course Hospital Course: She underwent a repeat transverse section and bilateral salpingectomy on March 29, 2017. She delivered a liveborn male child at 1:27 PM in the afternoon of March 29, 2017. The baby was a liveborn male child weighing 5 lbs. 1 oz. and was 17 inches long. He had Apgars of 8 at 1 minute and 9 at 5 minutes. He look quite wasted and there was minimal fluid around the baby. She was initially doing but began to have some dizziness and a repeat hemoglobin the following day was 8.1. As result of that I elected to transfuse her 2 units. Her hemoglobin came up to 10.1 and the next morning it was 9.9. She is doing very well and eating and drinking and ablating. She no longer has any episodes of feeling lightheaded or dizzy. She has been up walking around. Her lochia is normal. She has B- blood, she is rubella immune and was group B streptococcus negative. She did receive RhoGam. She underwent a bilateral salpingectomy at the time of her date She is bottlefeeding. Her child caregiver is Dr. Rodriguez. Results Labs on day of discharge: Preliminary micro results at discharge 03/30/17 14:23 Urine Culture - Preliminary Urine,Catheterized NO GROWTH AFTER 24 HOURS DS: Diagnosis - Discharge Diagnosis (1) induced hypertension, delivered, current hospitalization Status: Acute (2) Previous section Status: Acute (3) Previous section complicating Status: Acute (4) Sterilization Status: Acute (5) Anemia Status: Acute Meds Home Medications Medication Instructions Recorded Confirmed Type levothyroxine 25 mcg capsule 25 mcg PO QDAY cap 03/24/17 03/29/17 History Albuterol Sulfate [Proventil-HFA 2 puffs IH Q4HP PRN 03/29/17 03/29/17 History 90mcg/puff Inh] Budesonide/Formoterol Fumarate 2 puffs IH DAILY 03/29/17 03/29/17 History [Symbicort 160-4.5 Mcg Inhaler] Allergies Allergy/AdvReac Type Severity Reaction Status Date / Time Penicillins Allergy Intermediate I-RASH Verified 03/29/17 12:41 peanut Allergy Unknown Allergy Verified 03/29/17 12:41 test showed pt allergic to peanuts Discharge Plan - Patient Discharge Instructions Diet: advance to your usual diet - Follow up Plan Disposition: Home, Self-[facility] Medications: Home Medications Medication Instructions Recorded Confirmed Type levothyroxine 25 mcg capsule 25 mcg PO QDAY cap 03/24/17 03/29/17 History Albuterol Sulfate [Proventil-HFA 2 puffs IH Q4HP PRN 03/29/17
== END 2017-04-01 12:33 | disposition home or self-care (01) | DRG 766 ==
LOC: OBOUT 10:09
PROVIDERS: Admitting Provider Nurse Practitioner Obstetrics & Gynecology; PCP Nurse Practitioner Obstetrics & Gynecology; Visit Provider Nurse Practitioner Obstetrics & Gynecology
PROC: 10D00Z1 Extraction of Products of Conception, Low, Open Approach (ICD-10-PCS; CPT 59514; principal; 2017-03-29 12:15)
DX: O76 Abnormality in fetal heart rate and rhythm complicating labor and delivery (principal); N85.8 Other specified noninflammatory disorders of uterus; O13.5 Gestational [pregnancy-induced] hypertension without significant proteinuria, complicating the puerperium; Z30.2 Encounter for sterilization; Z37.0 Single live birth; Z3A.38 38 weeks gestation of pregnancy; O90.81 Anemia of the puerperium; O34.211 Maternal care for low transverse scar from previous cesarean delivery; O75.82 Onset (spontaneous) of labor after 37 completed weeks of gestation but before 39 completed weeks gestation, with delivery by (planned) cesarean section
CPT/HCPCS: 59514; 58611; 36430; 36415; 59025; 80048; 81001; 82800; 83735; 84450; 84460; 84550; 85007; 85014; 85018; 85025; 85378; 85384; 85461; 85610; 85730; 86850; 87086; J1956; J2405; J2790; P9016

== ENCOUNTER 2019-10-22 17:16 | Emergency (ER) | payer OTHER, SELFPAY ==
[2019-10-22 17:24] VITALS: BP 127/83; PULSE 76; RESP 17; TEMP 36.8; O2SAT 98; BMI 30.4
--- NOTE | 2019-10-22 17:51 | HMH.EDGENADL ---
ED Disposition Clinical Impression: Reflux esophagitis Disposition: Home, Self-Care Condition on Discharge: Good Instructions: DI for Acute Abdomen, DI for Epigastric Pain Additional Instructions: You have been evaluated for epigastric pain, likely due to reflux. Please continue to use Maalox or Tums as needed. Follow-up with your primary care doctor in 1 to 2 days for symptom recheck. Return to the emergency department for any new or worsening symptoms. Referrals: Robert Pelayo MD [Primary Care Provider] - Time of Disposition: 18:15 - Critical Care Critical Care Time: No Attestation: On 10/22/19, the high probability of a clinically significant, sudden or life threatening deterioration of the following system(s) required my full and direct attention, intervention and personal management. The time I documented below is in addition to time spent performing reported procedures but includes the following listed in this critical care notation. Medical Decision Making - Medical Records Medical records reviewed: Yes: I reviewed the patient's medical records. - Fab Inquiry Pt receiving controlled substance: No Vital Signs: 10/22/19 17:24 Temperature 98.3 F Temperature Source Oral Pulse Rate [Right Radial] 76 Respiratory Rate 17 Blood Pressure [Right Arm] 127/83 Blood Pressure Mean [Right Arm] 97 02 Sat by Pulse Oximetry 98 Orders (Tests/Meds): ED MEDICATIONS Discontinued Medications Generic Name Dose Route Start Last Admin Trade Name Freq PRN Reason Stop Dose Admin Al Hydrox/Mg Hydrox/Simethicone 30 ml 10/22/19 17:33 10/22/19 17:45 Maalox 30ml Udc PO 10/22/19 17:34 30 ml ONCE ONE Administration Medical Decision Narrative: In summary this is a 23-year-old female presenting to the emergency department with burning midepigastric pain. Patient is overall well-appearing on arrival. Vital signs are stable. Most likely diagnosis is reflux. PERC negative. Patient given one-time dose of Maalox. After Maalox patient said she was feeling somewhat better. No new or concerning pain. No chest pain or shortness of breath. I counseled her to avoid eating before bedtime. She may take Maalox or Tums as needed for indigestion. Follow-up with her primary care physician this week for symptom recheck. Stable for discharge. General Adult HPI - General Chief complaint: Abdominal Pain Stated complaint: chest pains when she breathes deeply Time Seen by Provider: 10/22/19 17:31 Mode of Arrival: Ambulatory Limitations: No Limitations Description of Symptoms (Recalled from ER Triage Doc. by RN): pt presents to ed with c/o throat/upper chest burning. pt states that is started last night and isnt getting any better today. - History of Present Illness HPI narrative: 23-year-old female presenting to the emergency department with intermittent substernal burning pain. Symptom started last night as she was trying to go to sleep. V[place] like something was burning in her stomach and she had a sour taste in her mouth. She has had many episodes like this in the past, diagnosed with reflux. She tries to avoid eating spicy food. Does not take medication for reflux. She had another episode this afternoon. No cough, fevers, chills. No shortness of breath. No history of DVT or PE. No recent immobility. No tobacco use. She has never had an EGD. - Related Data Previous Rx's Medication Instructions Recorded Ibuprofen [Motrin 800mg Tab] 800 mg PO Q6HP PRN #20 tab 03/20/19 Pseudoephedrine HCl [Sudafed 12 120 mg PO Q12 PRN #20 tab 03/20/19 Hour 120mg Tab] albuterol sulfate 90 mcg/actuation 2 inh INHALATION Q4-6H PRN #1 05/30/19 aerosol inhaler device fluticasone furoate 100 1 inh INHALATION DAILY #60 each 05/30/19 mcg-vilanterol 25 mcg/dose inhalation powder Allergies Allergy/AdvReac Type Severity Reaction Status Date / Time Penicillins Allergy Intermediate I-RASH Verified 10/21
[2019-10-22 18:30] VITALS: BP 127/83; PULSE 76; RESP 17; TEMP 36.8; O2SAT 98
== END 2019-10-22 18:31 | disposition home or self-care (01) ==
PROVIDERS: Emergency Provider Emergency Medicine; PCP Emergency Medicine
DX: K21.0 Gastro-esophageal reflux disease with esophagitis (principal); J45.909 Unspecified asthma, uncomplicated; Z79.899 Other long term (current) drug therapy; Z88.0 Allergy status to penicillin
CPT/HCPCS: 99281

== ENCOUNTER → 2020-06-17 16:36 | Outpatient (CLI) | payer OTHER, SELFPAY ==
--- NOTE | 2020-06-17 16:40 | XR_ITS ---
PROCEDURE: XR FOOT RT MIN 3V CLINICAL INDICATION: right 5th toe pain and swelling COMPARISON: CR FTL3 FOOT-LT-3 VIEWS from 12/30/2013 CR FTL3 FOOT-LT-3 VIEWS from 01/16/2014 FINDINGS: No acute fractures or dislocations. Bone density is normal. The tarsals, metatarsals and phalanges are within normal limits. Minor soft tissue swelling of the 5th digit noted. IMPRESSION: Minor soft tissue swelling of the 5th digit. No acute fractures. Dictated by: Sera Back 06/17/2020 17:04 Sera Back in OV 06/17/2020 17:04
== END ==
PROVIDERS: PCP Physician Assistant; Visit Provider Physician Assistant
DX: M79.674 Pain in right toe(s) (principal)
CPT/HCPCS: 73630

== ENCOUNTER → 2021-01-29 17:23 | Outpatient (CLI) | payer OTHER, SELFPAY | PROVIDERS: Visit Provider Physician Assistant | DX: Z20.822 Contact with and (suspected) exposure to COVID-19 (principal); J34.89 Other specified disorders of nose and nasal sinuses | CPT/HCPCS: C9803; U0003; U0005 ==

== ENCOUNTER → 2021-12-29 11:00 | Outpatient (CLI) | payer OTHER, SELFPAY ==
[2021-12-29 18:53] LABS: Basophils # 1.2 K/mm3 (0-0.2); Basophils % 12.2 % (0.1-2.0); Eosinophils # 0.6 K/mm3 (0.0-0.4); Eosinophils % 5.9 % (0.1-12.0); Hematocrit 42.9 % (37.0-47.0); Hemoglobin 11.2 g/dL (12.2-16.2); Lymphocytes # 2.5 K/mm3 (0.7-4.5); Lymphocytes % 26.4 % (10-50); Mean Corpuscular HGB Conc 26.1 g/dL (31.8-35.4); Mean Corpuscular Hemoglobin 24.8 pg (27.0-31.2); Mean Corpuscular Volume 95.2 fl (81-99); Mean Platelet Volume 24.7 fl (7.4-10.4); Monocytes # 0.4 K/mm3 (0.1-1.0); Monocytes % 4.6 % (1.7-9.3); Platelet Count 265 K/mm3 (142-424); Red Cell Distribution Width 22.7 % (11.5-17.5); White Blood Count 9.6 K/mm3 (4.8-10.8)
[2021-12-29 19:01] LABS: Chloride 104 mmol/L (98-107)
[2021-12-29 19:02] LABS: Sodium 141 mmol/L (136-145)
[2021-12-29 19:03] LABS: Potassium 4.7 mmoL/L (3.5-5.1)
[2021-12-29 19:04] LABS: Alanine Aminotransferase 15 U/L (12-78); Alkaline Phosphatase 79 U/L (38-126); Anion Gap 14.7 mEq/L (5-15); Aspartate Amino Transferase 26 U/L (14-36); Bilirubin,Total 0.2 mg/dl (0.2-1.3); Blood Urea Nitrogen 10 mg/dl (7-17); Carbon Dioxide 27 mmol/L (22.0-30.0); Estimated Glomerular Filt Rate 101 ml/min (>60); GFR (African American) 122 ML/MIN (>60)
[2021-12-29 19:05] LABS: Albumin Level 4.3 g/dl (3.5-5.0); Albumin/Globulin Ratio 1.3 (1.1-1.8); Chol/HDL Ratio 2.8 (1-3.5); Cholesterol 111 mg/dl (140-200); Globulin 3.2 g/dL (1.3-3.2); Glucose 83 mg/dl (74-100); HDL Cholesterol 39 mg/dl (40-60); Iron 31 ug/dL (37-170); Total Protein,Serum 7.5 g/dl (6.3-8.2); Triglycerides 104 mg/dl (30-150); VLDL Cholesterol 21 mg/dL (0-40)
[2021-12-29 19:14] LABS: Total Iron Binding Capacity 397 ug/dL (265-497)
[2021-12-29 19:15] LABS: Direct LDL Cholesterol 50.64 mg/dL (100-129)
[2021-12-29 19:21] LABS: 25-OH Vitamin D, Total 22.8 ng/mL (30-100)
[2021-12-29 19:35] LABS: Thyroid Stimulating Hormone 7.61 uIU/mL (0.465-4.68)
== END ==
PROVIDERS: PCP Student in an Organized Health Care Education/Training Program; Visit Provider Student in an Organized Health Care Education/Training Program
DX: L65.9 Nonscarring hair loss, unspecified (principal); R53.83 Other fatigue; Z83.49 Family history of other endocrine, nutritional and metabolic diseases
CPT/HCPCS: 80053; 80061; 82306; 83540; 83550; 84443; 85025

== ENCOUNTER 2022-01-11 09:31 | Emergency (ER) | payer OTHER, SELFPAY ==
[2022-01-11 09:32] VITALS: BP 110/66; PULSE 62; RESP 17; TEMP 36.6; O2SAT 98; BMI 28.2
--- NOTE | 2022-01-11 10:13 | EXP.UTC ---
Discharge Plan Disposition Patient Disposition: Home, Self-Care Condition: Good Prescriptions Prescriptions: New azithromycin [Zithromax Z-Yao] 250 mg tablet See Rx Instructions .ROUTE .COMPLEX 5 Days Qty: 6 0RF Rx Instructions: For 250 mg dose pack: take 500 mg today (day 1), then 250 mg for 4 days (days 2-5) ondansetron HCl 4 mg tablet 4 mg PO Q8H 4 Days Qty: 12 0RF No Action budesonide-formoterol [Symbicort] 160-4.5 mcg/actuation HFA aerosol inhaler 2 puff INHALATION BID Qty: 10.2 2RF fluticasone furoate-vilanterol [Breo Ellipta] 100-25 mcg/dose blister with device 1 inh IH DAILY Qty: 60 2RF albuterol sulfate [ProAir HFA] 90 mcg/actuation HFA aerosol inhaler See Rx Instructions .ROUTE .COMPLEX Qty: 8.5 2RF Dose Instruction: INHALE 2 PUFFS BY MOUTH EVERY FOUR TO SIX HOURS NEEDED FOR ASTHMA Rx Instructions: INHALE 2 PUFFS BY MOUTH EVERY FOUR TO SIX HOURS NEEDED FOR ASTHMA levothyroxine 25 mcg capsule 25 mcg PO DAILY Qty: 30 2RF Slow Fe 142 mg (45 mg iron) tablet extended release 142 mg PO DAILY Qty: 90 3RF ergocalciferol (vitamin D2) 1,250 mcg (50,000 unit) capsule 1,250 mcg PO WEEKLY Qty: 14 3RF Referrals Follow up/Referrals: Nellie Claudio PA [Primary Care Provider] - See instructions Activity Restrictions/Add. Instructions Additional Instructions/Restrictions: *Monitor Temp, Over the counter Motrin or Tylenol as directed/as needed Tylenol every 4 hours and Motrin every 6 hours (as long as your family doctor has told you that you can take it) for fever or pain. and straight to ER if unable to lower temp less than 101.0 after medication given *Warm salt water gargles may help to soothe the throat *Throat Lozenges? *Warm fluids like tea with honey may help to soothe the throat? *Sleep elevated *Humidifier/Vaporizer Drink extra fluids with and between meals. If you have difficulty drinking, try very small amounts of water or suck on ice chips. ? Avoid fruit juices, as these do not replace minerals and can actually increase diarrhea. ? Children and adults can use sports drinks to replenish electrolytes. Younger children and infants should use products formulated for children, like oral rehydration solutions. ? Eat food in small amounts and let your stomach recover. ? Get lots of rest. You may feel tired or weak. ? No greasy or fried foods for the next 24-48 hours BRAT diet Bananas Rice Apples and Buena ? Make sure to drink plenty of liquids ? Return if needed ? Straight to ER if any life threatening symptoms ? Zofran as prescribed ? Follow up with family doctor in the next 48-72 hours if no improvement or any worsening of symptoms Follow up IMMEDIATELY for new or worsening symptoms or no Noticeable improvement over the next 48-72 hours. 911 for difficulty breathing or swallowing Clinical Impressions Clinical Impression: Otitis media Stand Alone Forms Stand Alone Forms: Work/School Release Instructions Patient Instructions: Middle Ear Infection, Diarrhea Discharge ED Provider: Stefania Daley [facility] General Stated complaint: stomach pain, diarrhea Mode of Arrival: Ambulatory Source of Information: Patient Limitations: No Limitations Time Seen by Provider: 01/11/22 10:14 Description of Symptoms (Recalled from Triage Doc. by RN): Stomach ache, diarrhea, CHACKO, and bilateral ear pain HEENT Symptoms (Recalled from RN notes): Yes Resp Symptoms (Recalled from RN notes): No Skin Symptoms (Recalled from RN notes): No MS Symptoms (Recalled from RN notes): No Functional Status (Recalled from RN notes): n/a History of Present Illness Provider Complaint: Patient states that she has been having bilateral ear pain, nausea and diarrhea States that this morning her left ear was hurting worse so she came in to get it checked out Related Data Previous
[2022-01-11 10:38] VITALS: BP 110/66; PULSE 62; RESP 17; TEMP 36.6; O2SAT 98
== END 2022-01-11 10:37 | disposition home or self-care (01) ==
PROVIDERS: Emergency Provider Nurse Practitioner; PCP Physician Assistant
DX: H66.92 Otitis media, unspecified, left ear (principal)
CPT/HCPCS: 99212; G0463

== ENCOUNTER → 2022-03-05 14:04 | Outpatient (CLI) | payer OTHER, SELFPAY ==
--- NOTE | 2022-03-05 14:04 | US_ITS ---
FINAL REPORT CLINICAL HISTORY: pelvic pain FINDINGS: Transvaginal sonographic images of the pelvis were obtained. The uterus is somewhat enlarged and measures 10.9 x 6.0 x 5.2 cm. The endometrium measures 11 mm, which is within normal limits. No uterine mass is identified. The right ovary measures 3.8 cm in length and left ovary measures 2.9 cm in length. Normal blood flow seen to the ovaries. Small follicles are present in the right ovary. There is no evidence of free fluid. IMPRESSION: No focal abnormality identified. Reviewed, Interpreted and Dictated by Hank Olmos III, MD Transcribed by Betsey Ewing Authenticated and [facility]
== END ==
PROVIDERS: PCP Physician Assistant; Visit Provider Nurse Practitioner Obstetrics & Gynecology
DX: R10.2 Pelvic and perineal pain (principal)
CPT/HCPCS: 76830

== ENCOUNTER 2022-03-20 18:52 | Emergency (ER) | payer OTHER, SELFPAY ==
--- NOTE | 2022-03-20 19:10 | EXP.UTC ---
Discharge Plan Disposition Patient Disposition: Home, Self-Care Condition: Good Prescriptions Prescriptions: New fgwadkobdjhnrqw-llkzlytwz-IL [Bromfed DM] 2-30-10 mg/5 mL Syrup 5 ml PO Q6H PRN (Reason: Cough) Qty: 240 0RF ondansetron 4 mg Tablet,Disintegrating 4 mg PO Q8H PRN (Reason: Nausea) Qty: 12 0RF No Action budesonide-formoterol [Symbicort] 160-4.5 mcg/actuation HFA aerosol inhaler 2 puff INHALATION BID Qty: 10.2 2RF fluticasone furoate-vilanterol [Breo Ellipta] 100-25 mcg/dose blister with device 1 inh IH DAILY Qty: 60 2RF albuterol sulfate [ProAir HFA] 90 mcg/actuation HFA aerosol inhaler See Rx Instructions .ROUTE .COMPLEX Qty: 8.5 2RF Dose Instruction: INHALE 2 PUFFS BY MOUTH EVERY FOUR TO SIX HOURS NEEDED FOR ASTHMA Rx Instructions: INHALE 2 PUFFS BY MOUTH EVERY FOUR TO SIX HOURS NEEDED FOR ASTHMA levothyroxine 25 mcg capsule 25 mcg PO DAILY Qty: 30 2RF Slow Fe 142 mg (45 mg iron) tablet extended release 142 mg PO DAILY Qty: 90 3RF ergocalciferol (vitamin D2) 1,250 mcg (50,000 unit) capsule 1,250 mcg PO WEEKLY Qty: 14 3RF ondansetron HCl 4 mg tablet 4 mg PO Q8H 4 Days Qty: 12 0RF Referrals Follow up/Referrals: Robert Pelayo MD [Primary Care Provider] - See instructions Activity Restrictions/Add. Instructions Additional Instructions/Restrictions: Drink plenty of fluids. Take tylenol or ibuprofen for pain or fever. Take the medications as directed. Follow up with your regular doctor. GO TO THE ER FOR ANY WORSENING SYMPTOMS Clinical Impressions Clinical Impression: Acute viral syndrome Stand Alone Forms Stand Alone Forms: Work/School Release Instructions Patient Instructions: DI for Viral Syndrome Discharge ED Provider: George Carson [facility] General Stated complaint: headache,diarrhea,SOA Time Seen by Provider: 03/20/22 19:10 History of Present Illness Provider Complaint: She states that for the past 1 day she has had fever, chills, body aches and malaise. 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 Related Data Previous Rx's Medication Instructions Recorded ProAir HFA 90 mcg/actuation See Rx Instructions .Route 12/29/21 aerosol inhaler (albuterol sulfate) .COMPLEX #8.5 grams budesonide-formoterol HFA 160 2 puff inhalation BID #10.2 grams 12/29/21 mcg-4.5 mcg/actuation aerosol inhaler (Symbicort) fluticasone furoate 100 1 inh inhalation DAILY #60 ea 12/29/21 mcg-vilanterol 25 mcg/dose inhalation powder (Breo Ellipta) ergocalciferol (vitamin D2) 1,250 1,250 mcg PO WEEKLY #14 caps 12/31/21 mcg (50,000 unit) capsule ferrous sulfate 142 mg (45 mg 142 mg PO DAILY #90 tabs 12/31/21 iron) tablet,extended release (Slow Fe) levothyroxine 25 mcg capsule 25 mcg PO DAILY #30 caps 12/31/21 ondansetron HCl 4 mg tablet 4 mg PO Q8H 4 days #12 tabs 01/11/22 pouxkkqmemijfrg-lxqofcssjsmkueb-OH 5 ml PO Q6H PRN Cough #240 mL 03/20/22 2 mg-30 mg-10 mg/5 mL oral syrup (Bromfed DM) ondansetron 4 mg disintegrating 4 mg PO Q8H PRN Nausea #12 tabs 03/20/22 tablet Allergies Allergy/AdvReac Type Severity Reaction Status Date / Time Penicillins Allergy Intermediate I-RASH Verified 03/20/22 19:22 peanut Allergy Unknown Allergy Verified 03/20/22 19:22 test showed pt allergic to peanuts amoxicillin Allergy Verified 03/20/22 19:22 [facility] Disclaimer: The information contained in this section may have been updated after the patient was seen, as this information can be updated by other users. Family History Mother Thyroid disorder Sister Thyroid disorder Social History Smoking Status: Never smoker alcohol intake: never substance use type: denies use current occupational status: employed Travel in the last 8 weeks: None ROS O
[2022-03-20 19:15] VITALS: BP 124/76; PULSE 72; RESP 16; TEMP 37.2; O2SAT 97; BMI 30.6
[2022-03-20 19:21] LABS: UTC Influenza A Antigen Negative (Negative)
[2022-03-20 19:22] LABS: UTC Influenza B Antigen Negative (Negative)
[2022-03-20 20:13] VITALS: BP 124/76; PULSE 72; RESP 16; TEMP 37.2
[2022-03-20 20:17] LABS: Adenovirus,PCR Not Detected (NotDetected); Bordetella Pertussis Not Detected (NotDetected); Chlamydophila Pneumoniae, PCR Not Detected (NotDetected); Coronavirus 19, PCR Not Detected (NotDetected); Coronavirus 229E Not Detected (NotDetected); Coronavirus OC43 Not Detected (NotDetected); Coronovirus HKU1,PCR Not Detected (NotDetected); Human Metapneumovirus Not Detected (NotDetected); Influenza A, PCR Not Detected (NotDetected); Influenza AH1, 2009 Not Detected (NotDetected); Influenza AH1, PCR Not Detected (NotDetected); Influenza AH3,PCR Not Detected (NotDetected); Influenza B, PCR Not Detected (NotDetected); Mycoplasma Pneumoniae, PCR Not Detected (NotDetected); Parainfluenza 1, PCR Not Detected (NotDetected); Parainfluenza 2, PCR Not Detected (NotDetected); Parainfluenza 3, PCR Not Detected (NotDetected); Parainfluenza 4, PCR Not Detected (NotDetected); Respiratory Syncytial Virus Not Detected (NotDetected); Rhinovirus/Enterovirus Not Detected (NotDetected)
[2022-03-21 00:36] LABS: Coronavirus NL63 Detected (NotDetected)
== END 2022-03-20 20:14 | disposition home or self-care (01) ==
PROVIDERS: Emergency Provider Nurse Practitioner Family; PCP Emergency Medicine
DX: U07.1 COVID-19 (principal); R51.9 Headache, unspecified; R19.7 Diarrhea, unspecified; R06.02 Shortness of breath
CPT/HCPCS: 87581; 87632; 87798; 87804; 99212; C9803; G0463; U0003; U0005

== ENCOUNTER 2022-03-22 22:08 | Emergency (ER) | payer OTHER, SELFPAY ==
[2022-03-22 22:15] VITALS: BP 122/65; PULSE 72; RESP 16; TEMP 37.1; O2SAT 98; BMI 30.6
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
[2022-03-22 22:47] VITALS: BP 119/64; PULSE 70; RESP 16; TEMP 37.1; O2SAT 98
== END 2022-03-22 22:49 | disposition home or self-care (01) ==
PROVIDERS: Emergency Provider Emergency Medicine; PCP Physician Assistant
DX: S05.12XA Contusion of eyeball and orbital tissues, left eye, initial encounter (principal); W22.8XXA Striking against or struck by other objects, initial encounter; Z83.49 Family history of other endocrine, nutritional and metabolic diseases
CPT/HCPCS: 99283; 99284

== ENCOUNTER 2022-05-22 09:56 | Emergency (ER) | payer OTHER, SELFPAY ==
[2022-05-22 10:09] VITALS: BP 140/84; PULSE 73; RESP 16; TEMP 36.8; O2SAT 99; BMI 32.4
--- NOTE | 2022-05-22 10:12 | CT_ITS ---
PROCEDURE INFORMATION: Exam: CT Abdomen And Pelvis With Contrast Exam date and time: 05/22/2022 10:55 AM Age: 26 years old Clinical indication: Abdominal pain; Generalized TECHNIQUE: Imaging protocol: Computed tomography of the abdomen and pelvis with contrast. Radiation optimization: All CT scans at this facility use at least one of these dose optimization techniques: automated exposure control; mA and/or kV adjustment per patient size (includes targeted exams where dose is matched to clinical indication); or iterative reconstruction. Contrast material: ISOVUE; Contrast volume: 75 ml; Contrast route: IV; REPORTING DATA: Count of CT and Cardiac NM exams in prior 12 months: This patient has received 0 known CTs and 0 known cardiac nuclear medicine studies in the 12 months prior to the current study. COMPARISON: ABDPELW/O CT ABD PELVIS W/O CONTRAST 11/18/2015 2:58 PM FINDINGS: Lungs: Lung bases are unremarkable. Liver: No focal hepatic lesions. Gallbladder and bile ducts: Gallbladder is distended without radiopaque cholelithiasis. No biliary ductal dilation. Pancreas: No peripancreatic fluid stranding. No main pancreatic ductal dilation. Spleen: No splenomegaly. Adrenal glands: The adrenal glands are normal. Kidneys and ureters: Nephrograms are symmetric. No nephrolithiasis or hydroureteronephrosis on either side. No solid lesions Stomach and bowel: No bowel wall thickening or distention. Appendix: Status post appendectomy. Intraperitoneal space: There is no evidence of free intraperitoneal or pelvic fluid. Vasculature: Aorta is nonaneurysmal. Lymph nodes: There is redemonstration of aurora mesentery as evidenced by prominent mesenteric nodes mild stranding of the mesenteric fat. Urinary bladder: Urinary bladder is unremarkable. Reproductive: There are adhesions which tether the anterior aspect of the uterine fundus to the anterior abdominal wall resulting in traction on the uterus with stretching of the lower uterine segment and cervix. Bones/joints: Unremarkable. No acute fracture. Soft tissues: Unremarkable. IMPRESSION: 1. No acute abnormality in the abdomen or pelvis 2. There are adhesions which tether the anterior aspect of the uterine fundus to the anterior abdominal wall resulting in traction on the uterus with stretching of the lower uterine segment and cervix.
[2022-05-22 10:20] LABS: Microscopic, Urine URINE MICROSCOPIC (MICROSCOPIC)
[2022-05-22 10:24] LABS: Basophils # 0.1 K/mm3 (0-0.2); Basophils % 0.9 % (0.1-2.0); Eosinophils # 0.5 K/mm3 (0.0-0.4); Eosinophils % 3.9 % (0.1-12.0); Hematocrit 35.6 % (37.0-47.0); Lymphocytes # 2.5 K/mm3 (0.7-4.5); Lymphocytes % 19.7 % (10-50); Mean Corpuscular HGB Conc 33.8 g/dL (31.8-35.4); Mean Corpuscular Hemoglobin 25.9 pg (27.0-31.2); Mean Corpuscular Volume 76.7 fl (81-99); Mean Platelet Volume 8.3 fl (7.4-10.4); Monocytes # 0.6 K/mm3 (0.1-1.0); Monocytes % 4.7 % (1.7-9.3); Neutrophils # 8.8 K/mm3 (1.8-7.8); Neutrophils % 70.8 % (37.0-80.0); Platelet Count 365 K/mm3 (142-424); Red Blood Count 4.64 M/mm3 (4.20-5.40); Red Cell Distribution Width 16.3 % (11.5-17.5); White Blood Count 12.5 K/mm3 (4.8-10.8)
[2022-05-22 10:29] LABS: Appearance,Urine CLEAR (Clear); Bilirubin,Urine Negative (Negative); Blood, Urine Negative (Negative); Color,Urine YELLOW (Yellow); Glucose,Urine (UA) Negative (Negative); Ketones,Urine Negative (Negative); Leukocyte Esterase,Urine Negative (Negative); Nitrate,Urine Negative (Negative); PH,Urine 5.5 (5.0-8.5); Protein,Urine Negative (Negative); Urobilinogen,Urine 0.2 EU/dl (0.2)
--- NOTE | 2022-05-22 10:30 | HMH.EDGENADL ---
Discharge Plan Disposition Patient Disposition: Home, Self-Care Condition: Good Prescriptions Prescriptions: New ondansetron 4 mg tablet,disintegrating 4 mg PO Q6H PRN (Reason: nausea and vomiting) Qty: 10 0RF dicyclomine 10 mg capsule 10 mg PO TID PRN (Reason: abdominal pain) Qty: 10 0RF No Action levothyroxine 25 mcg tablet See Rx Instructions .ROUTE .COMPLEX Rx Instructions: TAKE 1 TABLET BY MOUTH ONCE DAILY albuterol sulfate [ProAir HFA] 90 mcg/actuation HFA aerosol inhaler See Rx Instructions .ROUTE .COMPLEX Rx Instructions: INHALE 2 PUFFS BY MOUTH EVERY FOUR TO SIX HOURS NEEDED FOR ASTHMA fluticasone furoate-vilanterol [Breo Ellipta] 100-25 mcg/dose blister with device See Rx Instructions .ROUTE .COMPLEX Rx Instructions: INHALE 1 PUFF BY MOUTH DAILY Referrals Follow up/Referrals: Nellie Claudio PA [Primary Care Provider] - See instructions Clinical Impressions Clinical Impression: Abdominal pain Instructions Patient Instructions: DI for Acute Abdominal Pain Print Language Print Language: German Discharge ED Provider: Yury Uriostegui General Adult HPI General Chief complaint: Abdominal Pain Stated complaint: LT side abd pain Time Seen by Provider: 05/22/22 11:35 Mode of Arrival: Ambulatory Source of Information: Patient Limitations: No Limitations Description of Symptoms (Recalled from ER Triage Doc. by RN): pt comes in with c/o left sided abdominal pain that began last night. began in lower mid abdomen and wraps around to flank area. pt also reports that she also has pain located all over right side of abdomen. lmp may 02. History of Present Illness HPI narrative: Patient presents to the emergency department with abdominal pain which started last night. The patient states it is mostly left-sided in nature with associated diarrhea. Denies any fever, chills, cough, congestion. Does describe some dysuria and frequency. Denies any hematuria. Denies any history of kidney stones. States that she has had no melena or hematochezia. Denies any vaginal bleeding or discharge Related Data Home Medications Medication Instructions Recorded Confirmed albuterol sulfate 90 mcg/actuation See Rx Instructions .Route 05/22/22 05/22/22 aerosol inhaler (ProAir HFA) .COMPLEX Asthma fluticasone furoate 100 See Rx Instructions .Route 05/22/22 05/22/22 mcg-vilanterol 25 mcg/dose .COMPLEX Asthma inhalation powder (Breo Ellipta) levothyroxine 25 mcg tablet See Rx Instructions .Route 05/22/22 05/22/22 .COMPLEX Asthma Previous Rx's Medication Instructions Recorded dicyclomine 10 mg capsule 10 mg PO TID PRN abdominal pain 05/22/22 #10 caps ondansetron 4 mg disintegrating 4 mg PO Q6H PRN nausea and 05/22/22 tablet vomiting #10 tabs Allergies Allergy/AdvReac Type Severity Reaction Status Date / Time Penicillins Allergy Intermediate I-RASH Verified 05/22/22 10:14 peanut Allergy Unknown Allergy Verified 05/22/22 10:14 test showed pt allergic to peanuts amoxicillin Allergy Verified 05/22/22 10:14 [facility] Disclaimer: The information contained in this section may have been updated after the patient was seen, as this information can be updated by other users. Family History Mother Thyroid disorder Sister Thyroid disorder Social History Smoking Status: Never smoker alcohol intake: never substance use type: denies use current occupational status: employed Travel in the last 8 weeks: None ROS Obtained: Yes All systems reviewed & no additional complaints except as documented Gastrointestinal Gastrointestingal: Reports abdominal pain and diarrhea Genitourinary Female Genitourinary: Reports dysuria and Reports urinary frequency Physical Exam General General appearance: alert and in no
[2022-05-22 10:31] LABS: Urine Pregnancy, HCG Qual. Negative (Negative)
[2022-05-22 10:37] LABS: Alanine Aminotransferase 23 U/L (12-78); Albumin Level 4.4 g/dl (3.5-5.0); Albumin/Globulin Ratio 1.2 (1.1-1.8); Alkaline Phosphatase 91 U/L (38-126); Anion Gap 10.1 mEq/L (5-15); Aspartate Amino Transferase 28 U/L (14-36); Bilirubin,Total 0.5 mg/dl (0.2-1.3); Blood Urea Nitrogen 14 mg/dl (7-17); Calcium 8.7 mg/dl (8.4-10.2); Carbon Dioxide 24 mmol/L (22.0-30.0); Chloride 106 mmol/L (98-107); Creatinine Clearance Estimated 160 mL/min (50-200); Estimated Glomerular Filt Rate 101 ml/min (>60); GFR (African American) 122 ML/MIN (>60); Globulin 3.7 g/dL (1.3-3.2); Glucose 96 mg/dl (74-100); Lipase 171 U/L (23-300); Potassium 4.1 mmoL/L (3.5-5.1); Sodium 136 mmol/L (136-145); Total Protein,Serum 8.1 g/dl (6.3-8.2)
[2022-05-22 11:02] LABS: Bacteria,Urine Trace /lpf; WBC,Urine Occasional #/hpf (0-3)
[2022-05-22 11:10] VITALS: BP 109/65; PULSE 68; RESP 16; O2SAT 99
--- NOTE | 2022-05-22 11:14 | PC.NURSE ---
rounded on pt, no needs at this time
[2022-05-22 11:31] VITALS: BP 105/52; PULSE 69; RESP 16; O2SAT 98
[2022-05-22 11:43] VITALS: BP 107/65; PULSE 75; RESP 18; TEMP 36.7; O2SAT 100
== END 2022-05-22 11:44 | disposition home or self-care (01) ==
PROVIDERS: Emergency Provider Emergency Medicine; PCP Physician Assistant
DX: A08.4 Viral intestinal infection, unspecified (principal)
CPT/HCPCS: 74177; 80053; 81001; 81025; 83690; 85025; 96361; 96374; 96375; 99285; J2405; Q9967

== ENCOUNTER 2022-08-06 19:28 | Emergency (ER) | payer OTHER, SELFPAY ==
[2022-08-06 19:29] VITALS: BP 129/76; PULSE 64; RESP 19; TEMP 36.7; O2SAT 98; BMI 33.6
--- NOTE | 2022-08-06 19:41 | CT_ITS ---
PROCEDURE INFORMATION: Exam: CT Abdomen And Pelvis With Contrast Exam date and time: 08/06/2022 8:16 PM Age: 26 years old Clinical indication: Abdominal pain; Additional info: Suprapubic pain TECHNIQUE: Imaging protocol: Computed tomography of the abdomen and pelvis with contrast. Radiation optimization: All CT scans at this facility use at least one of these dose optimization techniques: automated exposure control; mA and/or kV adjustment per patient size (includes targeted exams where dose is matched to clinical indication); or iterative reconstruction. Contrast material: ISOVUE; Contrast volume: 75 ml; Contrast route: IV; REPORTING DATA: Count of CT and Cardiac NM exams in prior 12 months: This patient has received [address] and 0 known cardiac nuclear medicine studies in the 12 months prior to the current study. COMPARISON: CT ABDOMEN PELVIS W CON 05/22/2022 10:55 AM FINDINGS: Liver: Normal. No mass. Gallbladder and bile ducts: No calcified stones. No ductal dilation. Pancreas: Normal enhancement. No ductal dilation. Spleen: No splenomegaly. Adrenal glands: No mass. Kidneys and ureters: No hydronephrosis. Stomach and bowel: No obstruction. No mucosal thickening. Appendix: No evidence of appendicitis. Intraperitoneal space: No significant fluid collection. No free air. Vasculature: No abdominal aortic aneurysm. Lymph nodes: No enlarged lymph nodes. Urinary bladder: No acute abnormality. Reproductive: Endometrial thickening measuring 16 mm. Bones/joints: No acute fracture. Soft tissues: No soft tissue swelling. IMPRESSION: No acute findings.
[2022-08-06 19:54] LABS: Basophils # 0.1 K/mm3 (0-0.2); Basophils % 0.6 % (0.1-2.0); Eosinophils # 0.5 K/mm3 (0.0-0.4); Eosinophils % 3.8 % (0.1-12.0); Hematocrit 35.5 % (37.0-47.0); Hemoglobin 11.5 g/dL (12.2-16.2); Lymphocytes # 2.6 K/mm3 (0.7-4.5); Lymphocytes % 21.7 % (10-50); Mean Corpuscular HGB Conc 32.4 g/dL (31.8-35.4); Mean Corpuscular Hemoglobin 27.1 pg (27.0-31.2); Mean Corpuscular Volume 83.7 fl (81-99); Mean Platelet Volume 8.8 fl (7.4-10.4); Monocytes # 0.6 K/mm3 (0.1-1.0); Monocytes % 4.8 % (1.7-9.3); Neutrophils # 8.4 K/mm3 (1.8-7.8); Platelet Count 309 K/mm3 (142-424); Red Blood Count 4.24 M/mm3 (4.20-5.40); Red Cell Distribution Width 15.9 % (11.5-17.5); White Blood Count 12.1 K/mm3 (4.8-10.8)
[2022-08-06 19:56] LABS: Alanine Aminotransferase 23 U/L (12-78); Albumin Level 4.4 g/dl (3.5-5.0); Albumin/Globulin Ratio 1.3 (1.1-1.8); Alkaline Phosphatase 86 U/L (38-126); Amylase 120 U/L (30-110); Aspartate Amino Transferase 28 U/L (14-36); Bilirubin,Total 0.3 mg/dl (0.2-1.3); Blood Urea Nitrogen 13 mg/dl (7-17); Calcium 8.7 mg/dl (8.4-10.2); Carbon Dioxide 25 mmol/L (22.0-30.0); Chloride 100 mmol/L (98-107); Creatinine Clearance Estimated 145 mL/min (50-200); Estimated Glomerular Filt Rate 87 ml/min (>60); GFR (African American) 105 ML/MIN (>60); Globulin 3.5 g/dL (1.3-3.2); Glucose 88 mg/dl (74-100); Lipase 181 U/L (23-300); Sodium 139 mmol/L (136-145); Total Protein,Serum 7.9 g/dl (6.3-8.2)
[2022-08-06 20:08] LABS: HCG Qualitative, Serum Negative (Negative)
[2022-08-06 20:15] LABS: Procalcitonin 0.048 ng/mL (0.0-2.0)
--- NOTE | 2022-08-06 20:20 | HMH.EDABDPAI ---
Discharge Plan Disposition Patient Disposition: Home, Self-Care Prescriptions Prescriptions: No Action levothyroxine 25 mcg tablet See Rx Instructions .ROUTE .COMPLEX Rx Instructions: TAKE 1 TABLET BY MOUTH ONCE DAILY albuterol sulfate [ProAir HFA] 90 mcg/actuation HFA aerosol inhaler See Rx Instructions .ROUTE .COMPLEX Rx Instructions: INHALE 2 PUFFS BY MOUTH EVERY FOUR TO SIX HOURS NEEDED FOR ASTHMA fluticasone furoate-vilanterol [Breo Ellipta] 100-25 mcg/dose blister with device See Rx Instructions .ROUTE .COMPLEX Rx Instructions: INHALE 1 PUFF BY MOUTH DAILY ondansetron 4 mg tablet,disintegrating 4 mg PO Q6H PRN (Reason: nausea and vomiting) Qty: 10 0RF dicyclomine 10 mg capsule 10 mg PO TID PRN (Reason: abdominal pain) Qty: 10 0RF Referrals Follow up/Referrals: Nellie Claudio PA [Primary Care Provider] - See instructions Carina Shipman APRN [Staff Physician] - See instructions Clinical Impressions Clinical Impression: Abdominal pain Instructions Patient Instructions: DI for Acute Abdominal Pain Discharge ED Provider: Gita (ED)Robert Abdominal Pain HPI General Chief Complaint: Abdominal Pain Stated Complaint: lower abd pain, diarrhea Time Seen by Provider: 08/06/22 20:00 Mode of Arrival: Family Vehicle Source of Information: Patient and Medical Record Limitations: No Limitations Description of Symptoms (Recalled from ER Triage Doc. by RN): 26 yo female presents with cc of low abd pain directly over her suprapubic area without radiation, and RUQ pain following eating. Denies n/v. States she has had diarrhea for a month . Afebrile. Hasn't seen pcp for these symptom. PMH: hypothyroidism for which she takes daily Levothyroxine, and 2 inhalers for asthma; NKA History of Present Illness HPI narrative: lower abd pain which started today but has had gi issues for last month MD complaint: abdominal pain Onset (ago): day(s) Consistency: intermittent Location: suprapubic Severity: moderate Quality: sharp Associated symptoms: diarrhea Related Data Home Medications Medication Instructions Recorded Confirmed albuterol sulfate 90 mcg/actuation See Rx Instructions .Route 05/22/22 05/22/22 aerosol inhaler (ProAir HFA) .COMPLEX Asthma fluticasone furoate 100 See Rx Instructions .Route 05/22/22 05/22/22 mcg-vilanterol 25 mcg/dose .COMPLEX Asthma inhalation powder (Breo Ellipta) levothyroxine 25 mcg tablet See Rx Instructions .Route 05/22/22 05/22/22 .COMPLEX Asthma Previous Rx's Medication Instructions Recorded dicyclomine 10 mg capsule 10 mg PO TID PRN abdominal pain 05/22/22 #10 caps ondansetron 4 mg disintegrating 4 mg PO Q6H PRN nausea and 05/22/22 tablet vomiting #10 tabs Allergies Allergy/AdvReac Type Severity Reaction Status Date / Time Penicillins Allergy Intermediate I-RASH Verified 05/22/22 10:14 peanut Allergy Unknown Allergy Verified 05/22/22 10:14 test showed pt allergic to peanuts amoxicillin Allergy Verified 05/22/22 10:14 [facility] Disclaimer: The information contained in this section may have been updated after the patient was seen, as this information can be updated by other users. Family History Mother Thyroid disorder Sister Thyroid disorder Social History Smoking Status: Never smoker alcohol intake: never substance use type: denies use current occupational status: employed Travel in the last 8 weeks: None ROS Obtained: Yes All systems reviewed & no additional complaints except as documented Physical Exam General General appearance: alert Head Head exam: normocephalic Eye Eye exam: Present PERRL and EOMI ENT ENT exam: Present mucous membranes moist Neck Neck exam: Present trachea midline Respiratory Respiratory exam: Absent respiratory distress
[2022-08-06 20:24] LABS: Erythrocyte Sedimentation Rate 18 mm/hr (0-20)
[2022-08-06 21:07] LABS: Microscopic, Urine URINE MICROSCOPIC (MICROSCOPIC)
--- NOTE | 2022-08-06 21:31 | PC.NURSE ---
PER LAB, 5 MORE MINUTES ON URINE SAMPLE
[2022-08-06 21:38] LABS: Appearance,Urine Clear (Clear); Blood, Urine Negative (Negative); Color,Urine Yellow (Yellow); Glucose,Urine (UA) Negative (Negative); Ketones,Urine Negative (Negative); Protein,Urine Negative (Negative); Specific Gravity, Urine 1.015 (1.005-1.030)
[2022-08-06 21:39] LABS: Bacteria,Urine 1+ /lpf; Bilirubin,Urine Negative (Negative); Leukocyte Esterase,Urine Negative (Negative); Nitrate,Urine Negative (Negative); Urobilinogen,Urine 0.2 EU/dl (0.2)
[2022-08-06 21:45] VITALS: BP 126/72; PULSE 88; RESP 16; TEMP 36.8; O2SAT 98
== END 2022-08-06 21:50 | disposition home or self-care (01) ==
PROVIDERS: Emergency Provider Emergency Medicine; PCP Physician Assistant
DX: R10.30 Lower abdominal pain, unspecified (principal); R10.11 Right upper quadrant pain; R19.7 Diarrhea, unspecified
CPT/HCPCS: 74177; 80053; 81001; 82150; 83690; 84145; 84703; 85025; 85651; 86140; 96360; 99284; 99285; Q9967

== ENCOUNTER 2022-10-04 08:50 | Emergency (ER) | payer OTHER, SELFPAY ==
[2022-10-04 09:05] VITALS: BP 133/85; PULSE 72; RESP 20; TEMP 36.9; O2SAT 99; BMI 33.3
--- NOTE | 2022-10-04 09:19 | EXP.UTC ---
Discharge Plan Disposition Patient Disposition: Home, Self-Care Condition: Good Prescriptions Prescriptions: New pseudoephedrine HCl [Sudafed 12 Hour] 120 mg tablet extended release 120 mg PO Q12H PRN (Reason: nasal congestion) Qty: 20 0RF fluticasone propionate [Flonase Allergy Relief] 50 mcg/actuation spray,suspension 1 - 2 spray intranasal DAILY Qty: 16 0RF Rx Instructions: administer into each nostril daily azithromycin [Zithromax Z-Yao] 250 mg tablet See Rx Instructions .ROUTE .COMPLEX 5 Days Qty: 6 0RF Rx Instructions: For 250 mg dose pack: take 500 mg today (day 1), then 250 mg for 4 days (days 2-5) No Action levothyroxine 25 mcg tablet 25 mcg PO DAILY Rx Instructions: TAKE 1 TABLET BY MOUTH ONCE DAILY Referrals Follow up/Referrals: Nellie Claudio PA [Primary Care Provider] - See instructions Clinical Impressions Clinical Impression: Otitis media Qualifiers: Otitis media type: unspecified Laterality: right Qualified Code(s): H66.91 - Otitis media, unspecified, right ear Instructions Patient Instructions: Middle Ear Infection, Sore Throat, DI for Nasal Congestion Discharge ED Provider: Stefania Daley [facility] General Stated complaint: sore throat, ear pain Mode of Arrival: Ambulatory Source of Information: Patient Limitations: No Limitations Time Seen by Provider: 10/04/22 09:19 Description of Symptoms (Recalled from Triage Doc. by RN): PATIENT C/O BILATERAL EAR PAIN AND SORE THROAT THAT STARTED OVER THE WEEKEND HEENT Symptoms (Recalled from RN notes): Yes Resp Symptoms (Recalled from RN notes): No Skin Symptoms (Recalled from RN notes): No MS Symptoms (Recalled from RN notes): No Functional Status (Recalled from RN notes): WNL History of Present Illness Provider Complaint: Patient states that she has been having bilateral ear pain and pressure along with sore throat and nasal congestion that started over the weekend States that today she was not feeling any better so she came in to get checked Related Data Home Medications Medication Instructions Recorded Confirmed levothyroxine 25 mcg tablet 25 mcg PO DAILY Hypothyroid 05/22/22 10/04/22 Previous Rx's Medication Instructions Recorded azithromycin 250 mg tablet See Rx Instructions PO .COMPLEX 5 10/04/22 (Zithromax Z-Yao) days #6 tabs fluticasone propionate 50 1 - 2 spray intranasal DAILY #16 10/04/22 mcg/actuation nasal grams spray,suspension (Flonase Allergy Relief) pseudoephedrine HCl 120 mg 120 mg PO Q12H PRN nasal 10/04/22 tablet,extended release (Sudafed congestion #20 tabs 12 Hour) Allergies Allergy/AdvReac Type Severity Reaction Status Date / Time Penicillins Allergy Intermediate I-RASH Verified 05/22/22 10:14 peanut Allergy Unknown Allergy Verified 05/22/22 10:14 test showed pt allergic to peanuts amoxicillin Allergy Verified 05/22/22 10:14 Worker's Comp Is this a Worker's Comp case?: No [facility] Disclaimer: The information contained in this section may have been updated after the patient was seen, as this information can be updated by other users. Family History Mother Thyroid disorder Sister Thyroid disorder Social History Smoking Status: Never smoker alcohol intake: never substance use type: denies use current occupational status: employed Travel in the last 8 weeks: None ROS Obtained: Yes All systems reviewed & no additional complaints except as documented and Yes Systems reviewed as appropriate & no additional complaints except as documented Constitutional Constitutional: Reports system reviewed and no additional complaints, except as documented and Reports as per HPI ENT Ears, Nose, Mouth, and Throat: Reports system reviewed and no additional complaints, except as documented, 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
[2022-10-04 09:20] VITALS: BP 133/85; PULSE 72; RESP 20; TEMP 36.9; O2SAT 99
[2022-10-04 09:20] LABS: UTC Strep Screen (Rapid) Negative (Negative)
== END 2022-10-04 09:24 | disposition home or self-care (01) ==
PROVIDERS: Emergency Provider Nurse Practitioner; PCP Physician Assistant
DX: H66.91 Otitis media, unspecified, right ear (principal); J02.9 Acute pharyngitis, unspecified
CPT/HCPCS: 87880; 99212; 99214; G0463

== ENCOUNTER 2022-11-03 12:17 | Emergency (ER) | payer OTHER, SELFPAY ==
[2022-11-03 12:18] VITALS: BP 125/71; PULSE 84; RESP 16; TEMP 36.9; O2SAT 99; BMI 34.0
--- NOTE | 2022-11-03 12:30 | EXP.UTC ---
Discharge Plan Disposition Patient Disposition: Home, Self-Care Condition: Good Prescriptions Prescriptions: New methylprednisolone 4 mg Tablets,Dose Pack 4 mg PO DIRECTED Qty: 21 0RF nncqoucxmrjeayo-myeslxwhm-FG [Bromfed DM] 2-30-10 mg/5 mL Syrup 5 ml PO Q6H PRN (Reason: Cough) Qty: 240 0RF cefdinir 300 mg capsule 300 mg PO BID Qty: 20 0RF No Action pseudoephedrine HCl [Sudafed 12 Hour] 120 mg tablet extended release 120 mg PO Q12H PRN (Reason: nasal congestion) Qty: 20 0RF fluticasone propionate [Flonase Allergy Relief] 50 mcg/actuation spray,suspension 1 - 2 spray intranasal DAILY Qty: 16 0RF Rx Instructions: administer into each nostril daily azithromycin [Zithromax Z-Yao] 250 mg tablet See Rx Instructions .ROUTE .COMPLEX 5 Days Qty: 6 0RF Rx Instructions: For 250 mg dose pack: take 500 mg today (day 1), then 250 mg for 4 days (days 2-5) levothyroxine 25 mcg tablet 25 mcg PO DAILY Rx Instructions: TAKE 1 TABLET BY MOUTH ONCE DAILY Referrals Follow up/Referrals: Nellie Claudio PA [Primary Care Provider] - See instructions Activity Restrictions/Add. Instructions Additional Instructions/Restrictions: Drink plenty of fluids. Take tylenol or ibuprofen for pain or fever. Take the medications as directed. Follow up with your regular doctor. GO TO THE ER FOR ANY WORSENING SYMPTOMS Clinical Impressions Clinical Impression: Sinusitis Stand Alone Forms Stand Alone Forms: Work/School Release Instructions Patient Instructions: Sinusitis, DI for Sinusitis Discharge ED Provider: George Carson [facility] General Stated complaint: stuffy,cough Mode of Arrival: Ambulatory Source of Information: Patient Limitations: No Limitations Time Seen by Provider: 11/03/22 12:30 Description of Symptoms (Recalled from Triage Doc. by RN): Patient complaint of congestion, headache and cough for 2 days. States she thinks she has a sinus infection. HEENT Symptoms (Recalled from RN notes): Yes Resp Symptoms (Recalled from RN notes): No Skin Symptoms (Recalled from RN notes): No MS Symptoms (Recalled from RN notes): No Functional Status (Recalled from RN notes): wnl History of Present Illness Provider Complaint: She states that for the past 2 days she has had sore throat, sinus congestion, chills, and malaise. Related Data Home Medications Medication Instructions Recorded Confirmed levothyroxine 25 mcg tablet 25 mcg PO DAILY Hypothyroid 05/22/22 10/04/22 Previous Rx's Medication Instructions Recorded azithromycin 250 mg tablet See Rx Instructions PO .COMPLEX 5 10/04/22 (Zithromax Z-Yao) days #6 tabs fluticasone propionate 50 1 - 2 spray intranasal DAILY #16 10/04/22 mcg/actuation nasal grams spray,suspension (Flonase Allergy Relief) pseudoephedrine HCl 120 mg 120 mg PO Q12H PRN nasal 10/04/22 tablet,extended release (Sudafed congestion #20 tabs 12 Hour) oamstobpbdfnfhr-tqqiorwibbivpeg-BI 5 ml PO Q6H PRN Cough #240 mL 11/03/22 2 mg-30 mg-10 mg/5 mL oral syrup (Bromfed DM) cefdinir 300 mg capsule 300 mg PO BID #20 caps 11/03/22 methylprednisolone 4 mg tablets in 4 mg PO DIRECTED #21 tabs 11/03/22 a dose pack Allergies Allergy/AdvReac Type Severity Reaction Status Date / Time Penicillins Allergy Intermediate I-RASH Verified 05/22/22 10:14 peanut Allergy Unknown Allergy Verified 05/22/22 10:14 test showed pt allergic to peanuts amoxicillin Allergy Verified 05/22/22 10:14 Worker's Comp Is this a Worker's Comp case?: No [facility] Disclaimer: The information contained in this section may have been updated after the patient was seen, as this information can be updated by other users. Family History Mother Thyroid disorder Sister Thyroid disorder Social History Smoking Status: Never smoke
[2022-11-03 12:49] VITALS: BP 125/71; PULSE 84; RESP 16; TEMP 36.9; O2SAT 99
== END 2022-11-03 12:51 | disposition home or self-care (01) ==
PROVIDERS: Emergency Provider Nurse Practitioner Family; PCP Physician Assistant
DX: J01.90 Acute sinusitis, unspecified (principal); J02.9 Acute pharyngitis, unspecified; R53.81 Other malaise
CPT/HCPCS: 99212; 99214; G0463

== ENCOUNTER 2022-11-06 16:58 | Emergency (ER) | payer OTHER, SELFPAY ==
[2022-11-06 18:00] VITALS: BP 136/88; PULSE 74; RESP 18; TEMP 36.6; O2SAT 100; BMI 33.6
[2022-11-06 18:15] VITALS: BP 136/88; PULSE 74; RESP 18; TEMP 36.6; O2SAT 100
--- NOTE | 2022-11-06 18:17 | EXP.UTC ---
Discharge Plan Disposition Patient Disposition: Home, Self-Care Condition: Good Prescriptions Prescriptions: No Action pseudoephedrine HCl [Sudafed 12 Hour] 120 mg tablet extended release 120 mg PO Q12H PRN (Reason: nasal congestion) Qty: 20 0RF fluticasone propionate [Flonase Allergy Relief] 50 mcg/actuation spray,suspension 1 - 2 spray intranasal DAILY Qty: 16 0RF Rx Instructions: administer into each nostril daily azithromycin [Zithromax Z-Yao] 250 mg tablet See Rx Instructions .ROUTE .COMPLEX 5 Days Qty: 6 0RF Rx Instructions: For 250 mg dose pack: take 500 mg today (day 1), then 250 mg for 4 days (days 2-5) levothyroxine 25 mcg tablet 25 mcg PO DAILY Rx Instructions: TAKE 1 TABLET BY MOUTH ONCE DAILY methylprednisolone 4 mg Tablets,Dose Pack 4 mg PO DIRECTED Qty: 21 0RF qivtswhkifmyqmp-nzhwtxagp-QO [Bromfed DM] 2-30-10 mg/5 mL Syrup 5 ml PO Q6H PRN (Reason: Cough) Qty: 240 0RF cefdinir 300 mg capsule 300 mg PO BID Qty: 20 0RF Referrals Follow up/Referrals: Nellie Claudio PA [Primary Care Provider] - See instructions Activity Restrictions/Add. Instructions Additional Instructions/Restrictions: covid swab was sent to lab, call tomorrow for results. self isolate until test results are known to be negative No sign of a bacterial infection. Likely viral. Viruses can take 7-14 days to run their course. Nasal saline and bulb syringe or nose Breana to remove nasal drainage to help with nasal congestion. Hard to eat, drink, sleep with nasal congestion so important to keep this cleaned out. Monitor temp. Tylenol or Motrin as needed for pain or fever Encourage fluids, water, Gatorade, Powerade, Pedialyte if /toddler/child Warm salt water gargles Warm fluids Sore throat lozenges Sleep elevated Humidifier/vaporizer Follow-up immediately for new or worsening symptoms or no noticeable improvement over the next 48-72 hours. Clinical Impressions Clinical Impression: Viral upper respiratory infection, Close exposure to COVID-19 virus Instructions Patient Instructions: DI for Viral Upper Respiratory Infection -- Adult, Preventing the Spread of Coronavirus Discharge Instructions, DI for COVID-19 (Suspected or Confirmed ) Discharge ED Provider: Urszula ([facility])Josh [facility] [place] HPI General Stated complaint: exposed to covid Mode of Arrival: Ambulatory Source of Information: Patient Limitations: No Limitations Time Seen by Provider: 11/06/22 18:17 Description of Symptoms (Recalled from Triage Doc. by RN): PATIENT C/O HEADACHE, RECENTLY EXPOSED TO COVID HEENT Symptoms (Recalled from RN notes): Yes Resp Symptoms (Recalled from RN notes): No Skin Symptoms (Recalled from RN notes): No MS Symptoms (Recalled from RN notes): No Functional Status (Recalled from RN notes): WNL History of Present Illness Provider Complaint: 26 yr old female presents for headache, son has covid Related Data Home Medications Medication Instructions Recorded Confirmed levothyroxine 25 mcg tablet 25 mcg PO DAILY Hypothyroid 05/22/22 10/04/22 Previous Rx's Medication Instructions Recorded azithromycin 250 mg tablet See Rx Instructions PO .COMPLEX 5 10/04/22 (Zithromax Z-Yao) days #6 tabs fluticasone propionate 50 1 - 2 spray intranasal DAILY #16 10/04/22 mcg/actuation nasal grams spray,suspension (Flonase Allergy Relief) pseudoephedrine HCl 120 mg 120 mg PO Q12H PRN nasal 10/04/22 tablet,extended release (Sudafed congestion #20 tabs 12 Hour) gaadojkzpxceucu-wfuszcodnuaxybx-PG 5 ml PO Q6H PRN Cough #240 mL 11/03/22 2 mg-30 mg-10 mg/5 mL oral syrup (Bromfed DM) cefdinir 300 mg capsule 300 mg PO BID #20 caps 11/03/22 methylprednisolone 4 mg tablets in 4 mg PO DIRECTED #21 tabs 11/03/22 a dose pack Allergies Allergy/AdvReac Type Severity Reaction Status Date / Time Penicillins Allergy Intermediate I-RASH Verified 05/22/22 10:14 peanut Allergy Unknown Allerg
== END 2022-11-06 18:33 | disposition home or self-care (01) ==
PROVIDERS: Emergency Provider Nurse Practitioner Family; PCP Physician Assistant
DX: U07.1 COVID-19 (principal); R51.9 Headache, unspecified
CPT/HCPCS: 99212; 99213; G0463

== ENCOUNTER → 2022-12-27 09:01 | Outpatient (CLI) | payer OTHER, SELFPAY | DX: B34.9 Viral infection, unspecified (principal) | CPT/HCPCS: 86706 ==

== ENCOUNTER → 2022-12-31 09:23 | Outpatient (CLI) | payer OTHER, SELFPAY | PROVIDERS: PCP Internal Medicine Adolescent Medicine; Visit Provider Internal Medicine Adolescent Medicine | DX: D50.9 Iron deficiency anemia, unspecified (principal) ==

== ENCOUNTER 2023-02-26 19:43 | Emergency (ER) | payer OTHER, SELFPAY ==
[2023-02-26 19:44] VITALS: BP 130/70; PULSE 76; RESP 18; TEMP 36.6; O2SAT 100; BMI 34.3
[2023-02-26 19:48] VITALS: BP 130/70; PULSE 77; RESP 18; O2SAT 98
--- NOTE | 2023-02-26 19:52 | XR_ITS ---
PROCEDURE INFORMATION: Exam: XR Chest Exam date and time: 02/26/2023 7:56 PM Age: 27 years old Clinical indication: Cough and wheezing; Additional info: Asthma, persistent cough, R side wheezing TECHNIQUE: Imaging protocol: Radiologic exam of the chest. Views: 1 view. Total images: 1 COMPARISON: CT ABDOMEN PELVIS W CON 08/06/2022 8:16 PM FINDINGS: Lungs: Subtle ground-glass and interstitial opacity lung bases bilaterally. No airspace consolidation, vascular congestion, or interstitial edema. Pleural spaces: Unremarkable. No pleural effusion. No pneumothorax. Heart/Mediastinum: Unremarkable. No cardiomegaly. No mediastinal widening or hilar enlargement. Bones/joints: Unremarkable. Soft tissues: Breast attenuation artifact. IMPRESSION: 1. Subtle interstitial and ground-glass density of both lung bases implying acute pneumonitis. 2. No focal airspace consolidation or vascular congestion.
--- NOTE | 2023-02-26 19:54 | HMH.EDGENADL ---
Discharge Plan Disposition Patient Disposition: Home, Self-Care Prescriptions Prescriptions: New levofloxacin 750 mg tablet 750 mg PO DAILY 4 Days Qty: 4 0RF No Action Dulera 100-5 mcg/actuation HFA aerosol inhaler 2 puff inhalation BID Qty: 13 2RF pseudoephedrine HCl [Sudafed 12 Hour] 120 mg tablet extended release 120 mg PO Q12H PRN (Reason: nasal congestion) Qty: 20 0RF fluticasone propionate [Flonase Allergy Relief] 50 mcg/actuation spray,suspension 1 - 2 spray intranasal DAILY Qty: 16 0RF Rx Instructions: administer into each nostril daily azithromycin [Zithromax Z-Yao] 250 mg tablet See Rx Instructions .ROUTE .COMPLEX 5 Days Qty: 6 0RF Rx Instructions: For 250 mg dose pack: take 500 mg today (day 1), then 250 mg for 4 days (days 2-5) levothyroxine 25 mcg tablet 25 mcg PO DAILY Rx Instructions: TAKE 1 TABLET BY MOUTH ONCE DAILY methylprednisolone 4 mg Tablets,Dose Pack 4 mg PO DIRECTED Qty: 21 0RF atxbzbekxxrgkjw-dudowrkvj-ND [Bromfed DM] 2-30-10 mg/5 mL Syrup 5 ml PO Q6H PRN (Reason: Cough) Qty: 240 0RF cefdinir 300 mg capsule 300 mg PO BID Qty: 20 0RF Referrals Follow up/Referrals: Nellie Claudio PA [Primary Care Provider] - See instructions Activity Restrictions/Add. Instructions Additional Instructions/Restrictions: Please follow-up with your primary care provider. Please return to the emergency department if you develop any new or worsening symptoms or become concerned for your health. Please take Levaquin as prescribed for possible pneumonia. Clinical Impressions Clinical Impression: Acute headache, Pneumonia, Pharyngitis Discharge ED Provider: Vicente Waters General Adult HPI General Chief complaint: Ear Stated complaint: migraine, cough, ear pain Time Seen by Provider: 02/26/23 19:48 History of Present Illness HPI narrative: 27-year-old female with history of asthma presents with multiple complaints. She reports that she has had headache for the last 2 days. Bilateral in nature. Currently 7 out of 10. She has taken no medications for headache today. She also reports cough for the last week and a half. Generally nonproductive. She also reports some sore throat and bilateral ear pain for the last day or so. Related Data Home Medications Medication Instructions Recorded Confirmed levothyroxine 25 mcg tablet 25 mcg PO DAILY Hypothyroid 05/22/22 10/04/22 Previous Rx's Medication Instructions Recorded azithromycin 250 mg tablet See Rx Instructions PO .COMPLEX 5 10/04/22 (Zithromax Z-Yao) days #6 tabs fluticasone propionate 50 1 - 2 spray intranasal DAILY #16 10/04/22 mcg/actuation nasal grams spray,suspension (Flonase Allergy Relief) pseudoephedrine HCl 120 mg 120 mg PO Q12H PRN nasal 10/04/22 tablet,extended release (Sudafed congestion #20 tabs 12 Hour) uvwddyvytccqlbm-grumookzezjjzfj-TX 5 ml PO Q6H PRN Cough #240 mL 11/03/22 2 mg-30 mg-10 mg/5 mL oral syrup (Bromfed DM) cefdinir 300 mg capsule 300 mg PO BID #20 caps 11/03/22 methylprednisolone 4 mg tablets in 4 mg PO DIRECTED #21 tabs 11/03/22 a dose pack mometasone-formoterol HFA 100 2 puff inhalation BID #13 grams 01/18/23 mcg-5 mcg/actuation aerosol inhaler (Dulera) levofloxacin 750 mg tablet 750 mg PO DAILY 4 days #4 tabs 02/26/23 Allergies Allergy/AdvReac Type Severity Reaction Status Date / Time Penicillins Allergy Intermediate I-RASH Verified 05/22/22 10:14 peanut Allergy Unknown Allergy Verified 05/22/22 10:14 test showed pt allergic to peanuts amoxicillin Allergy Verified 05/22/22 10:14 [facility] Disclaimer: The information contained in this section may have been updated after the patient was seen, as this information can be updated by other users. Family History , [employer]) Thyroid disorder Mother Sister Social History (Reviewed
[2023-02-26 20:01] VITALS: BP 119/72; PULSE 78; RESP 17; O2SAT 98
--- NOTE | 2023-02-26 20:23 | PC.NURSE ---
Rounded on patient; call light within reach
[2023-02-26 20:26] LABS: Coronavirus 19, PCR Not Detected (NotDetected); Influenza A, PCR Not Detected (NotDetected); Influenza B, PCR Not Detected (NotDetected)
[2023-02-26 20:30] VITALS: BP 120/71; PULSE 78; O2SAT 97
[2023-02-26 20:35] LABS: Strep Scrn Group A (Rapid) Negative (Negative)
[2023-02-26 21:11] VITALS: BP 120/71; PULSE 84; RESP 17; TEMP 36.6; O2SAT 98
== END 2023-02-26 21:13 | disposition home or self-care (01) ==
PROVIDERS: Emergency Provider Emergency Medicine; PCP Physician Assistant
DX: J18.9 Pneumonia, unspecified organism (principal); R51.9 Headache, unspecified; J02.9 Acute pharyngitis, unspecified; R05.9 Cough, unspecified; H92.03 Otalgia, bilateral
CPT/HCPCS: 71045; 87430; 87636; 96372; 99284

== ENCOUNTER → 2023-02-28 23:24 | Outpatient (CLI) | payer OTHER, SELFPAY ==
[2023-02-28 18:37] LABS: Basophils # 0.1 K/mm3 (0-0.2); Basophils % 0.6 % (0.1-2.0); Eosinophils # 0.2 K/mm3 (0.0-0.4); Eosinophils % 1.1 % (0.1-12.0); Hematocrit 34.1 % (37.0-47.0); Hemoglobin 11.3 g/dL (12.2-16.2); Lymphocytes # 4.9 K/mm3 (0.7-4.5); Lymphocytes % 31.5 % (10-50); Mean Corpuscular HGB Conc 33.2 g/dL (31.8-35.4); Mean Corpuscular Hemoglobin 24.1 pg (27.0-31.2); Mean Corpuscular Volume 72.7 fl (81-99); Mean Platelet Volume 8.8 fl (7.4-10.4); Monocytes # 0.9 K/mm3 (0.1-1.0); Monocytes % 5.7 % (1.7-9.3); Neutrophils # 9.5 K/mm3 (1.8-7.8); Neutrophils % 61.1 % (37.0-80.0); Platelet Count 372 K/mm3 (142-424); Red Blood Count 4.69 M/mm3 (4.20-5.40); Red Cell Distribution Width 18.5 % (11.5-17.5); White Blood Count 15.5 K/mm3 (4.8-10.8)
[2023-02-28 18:42] LABS: MANUAL DIFFERENTIAL MANUAL DIFFERENTIAL (MANUAL DIFF)
[2023-02-28 18:47] LABS: Alanine Aminotransferase 23 U/L (12-78); Albumin/Globulin Ratio 1.1 (1.1-1.8); Alkaline Phosphatase 72 U/L (38-126); Anion Gap 11.9 mEq/L (5-15); Aspartate Amino Transferase 26 U/L (14-36); Bilirubin,Total 0.4 mg/dl (0.2-1.3); Blood Urea Nitrogen 16 mg/dl (7-17); Calcium 8.4 mg/dl (8.4-10.2); Carbon Dioxide 23 mmol/L (22.0-30.0); Chloride 106 mmol/L (98-107); Estimated Glomerular Filt Rate 100 ml/min (>60); GFR (African American) 121 ML/MIN (>60); Globulin 3.5 g/dL (1.3-3.2); Glucose 90 mg/dl (74-100); Potassium 3.9 mmoL/L (3.5-5.1); Sodium 137 mmol/L (136-145); Total Protein,Serum 7.5 g/dl (6.3-8.2)
[2023-02-28 21:52] LABS: Eosinophils % 1 % (0-3); Hypochromasia 1+; Lymphocytes % 31 % (10-50); Microcytosis 1+; Monocytes % 3 % (2-9); Neutrophils % 65 % (42-76); Platelet Estimate Normal; Total Cells Counted 100
== END ==
PROVIDERS: PCP Physician Assistant; Visit Provider Family Medicine
DX: Z00.00 Encounter for general adult medical examination without abnormal findings (principal)
CPT/HCPCS: 80053; 84443; 85007; 85025

== ENCOUNTER 2023-03-23 19:44 | Emergency (ER) | payer OTHER, SELFPAY ==
[2023-03-23 19:45] VITALS: BP 121/78; PULSE 96; RESP 18; TEMP 36.9; O2SAT 98; BMI 34.2
--- NOTE | 2023-03-23 20:08 | ED_ITS ---
Discharge Plan Disposition Patient Disposition: Home, Self-Care Prescriptions Prescriptions: New cefdinir 300 mg capsule 300 mg PO BID 10 Days Qty: 20 0RF No Action methylprednisolone [Medrol (Yao)] 4 mg tablets,dose pack See Rx Instructions PO PER PKG DIR Qty: 21 0RF Rx Instructions: PO PER PKG DIR levothyroxine 50 mcg tablet 50 mcg PO DAILY Qty: 30 2RF Dulera 100-5 mcg/actuation HFA aerosol inhaler 2 puff inhalation BID Qty: 13 2RF levofloxacin 750 mg tablet 750 mg PO DAILY 4 Days Qty: 4 0RF Referrals Follow up/Referrals: Nellie Claudio PA [Primary Care Provider] - See instructions Clinical Impressions Clinical Impression: Acute otitis media, right, Pharyngitis Discharge ED Provider: John Negrete General Adult HPI General Chief complaint: Ear Stated complaint: ear ache, sore throat Time Seen by Provider: 03/23/23 20:01 Mode of Arrival: Ambulatory Source of Information: Patient Limitations: No Limitations Description of Symptoms (Recalled from ER Triage Doc. by RN): Pt presents with concerns for right ear infection. Today she started having pain in her right ear, sore throat and neck. History of Present Illness HPI narrative: Is a 27-year-old female presents today with throat infection and right ear pain. All began today. No past medical history is allergic to penicillins. Related Data Previous Rx's Medication Instructions Recorded mometasone-formoterol HFA 100 2 puff inhalation BID #13 grams 01/18/23 mcg-5 mcg/actuation aerosol inhaler (Dulera) levofloxacin 750 mg tablet 750 mg PO DAILY 4 days #4 tabs 02/26/23 methylprednisolone 4 mg tablets in See Rx Instructions PO PER PKG DIR 02/28/23 a dose pack (Medrol (Yao)) #21 tabs levothyroxine 50 mcg tablet 50 mcg PO DAILY #30 tabs 03/02/23 cefdinir 300 mg capsule 300 mg PO BID 10 days #20 caps 03/23/23 Allergies Allergy/AdvReac Type Severity Reaction Status Date / Time Penicillins Allergy Intermediate I-RASH Verified 02/28/23 13:49 peanut Allergy Unknown Allergy Verified 02/28/23 13:49 test showed pt allergic to peanuts amoxicillin Allergy Verified 02/28/23 13:49 [facility] Disclaimer: The information contained in this section may have been updated after the patient was seen, as this information can be updated by other users. Medical History (Updated 03/23/23 @ 20:08 by John Negrete MD) Abdominal pain Acute viral syndrome Close exposure to COVID-19 virus Contusion of face Pharyngitis Sinusitis Family History Mother Thyroid disorder Sister Thyroid disorder Social History Smoking Status: Never smoker alcohol intake: never substance use type: denies use current occupational status: employed Travel in the last 8 weeks: None ROS Obtained: Yes All systems reviewed & no additional complaints except as documented Physical Exam General General appearance: alert ENT ENT exam: Present other (There is soft palatal erythema and ulcerations and some exudates no soft tissue asymmetry able to tolerate secretions without difficulty no trismus right ear TM is bulging and erythematous) Respiratory Respiratory exam: Present normal lung sounds bilaterally Cardiovascular Cardiovascular exam: Present regular rate; Absent tachycardia Neurological Exam Neurological exam: Present alert and oriented X3 Medical Decision Making Fab Inquiry Pt receiving controlled substance: No Vital Signs: 03/23/23 19:45 Temperature 98.5 F Temperature Source Oral Pulse Rate [Left] 96 H Respiratory Rate 18 Blood Pressure [Right Arm] 121/78 Blood Pressure Mean [Right Arm] 92 Blood Pressure Source [Right Arm] Automatic Cuff Blood Pressure Position [Right Arm] Sitting 02 Sat by Pulse Oximetry 98 Oxygen Delivery Method Room Air Orders (Tests/Meds): ED MEDICATIONS Generic Name Dose Route Start Last Admin Trade Name Roniq PRN Reason Stop Dose Admin Cefdinir 300 mg 03/23/23 20:06 Cefdinir 300mg Capsule PO 03/23/23 20:07 ONCE ONE Dexamethasone Sodium Phosphate 10 mg 03/23/23 20:06 Dexamethasone 4mg/Ml 1ml Vial IM 03/23/23 20:07 ONCE ONE Medical Decision Narrative: Patient is a 27-year-old female presents today with pharyngitis as well as right otitis media. Will treat this as presumed bacterial infection she has a penicillin allergy first dose of third-generation cephalosporin cefdinir was administered in the emergency department prescription was given to her as well. Given his significant amount of inflammation in the posterior aspect of the oropharynx we will also give a shot of dexamethasone IM which should help with her pain and swelling. She is tolerating secretions without difficulty do not suspect any suppurative complication at the moment she has been given return precautions and was discharged in stable condition. Critical Care Critical Care Time Critical Care Time: No
[2023-03-23] MEDS: CEFDINIR 300MG CAPSULE 300 MG PO (20:13)
[2023-03-23] MEDS: DEXAMETHASONE 4MG/ML 1ML VIAL 10 MG IM (20:13)
[2023-03-23 20:16] VITALS: BP 133/75; PULSE 73; RESP 20; TEMP 36.9; O2SAT 95
== END 2023-03-23 20:18 | disposition home or self-care (01) ==
PROVIDERS: Emergency Provider Student in an Organized Health Care Education/Training Program; PCP Physician Assistant
DX: H66.91 Otitis media, unspecified, right ear (principal); J02.9 Acute pharyngitis, unspecified
CPT/HCPCS: 96372; 99283

== ENCOUNTER 2023-03-26 17:17 | Emergency (ER) | payer OTHER, SELFPAY ==
[2023-03-26 17:18] VITALS: BP 122/80; PULSE 86; RESP 15; TEMP 37.5; O2SAT 98; BMI 34.2
--- NOTE | 2023-03-26 17:20 | ED_ITS ---
Discharge Plan Disposition Patient Disposition: Home, Self-Care Prescriptions Prescriptions: No Action methylprednisolone [Medrol (Yao)] 4 mg tablets,dose pack See Rx Instructions PO PER PKG DIR Qty: 21 0RF Rx Instructions: PO PER PKG DIR levothyroxine 50 mcg tablet 50 mcg PO DAILY Qty: 30 2RF Dulera 100-5 mcg/actuation HFA aerosol inhaler 2 puff inhalation BID Qty: 13 2RF levofloxacin 750 mg tablet 750 mg PO DAILY 4 Days Qty: 4 0RF cefdinir 300 mg capsule 300 mg PO BID 10 Days Qty: 20 0RF Referrals Follow up/Referrals: Nellie Claudio PA [Primary Care Provider] - See instructions Activity Restrictions/Add. Instructions Additional Instructions/Restrictions: Please continue to take antibiotics as prescribed. Take Tylenol and ibuprofen as needed for pain. The steroid we gave you will last 48 to 72 hours and should help your throat pain. Please follow-up with your primary care provider. Please return to the emergency department if you develop any new or worsening symptoms or become concerned for your health. Clinical Impressions Clinical Impression: Acute otitis media, right, Pharyngitis Discharge ED Provider: Vicente Waters General Adult HPI General Stated complaint: weak, ear pain Time Seen by Provider: 03/26/23 17:20 History of Present Illness HPI narrative: 27-year-old female presents with persistent ear pain and throat pain after recently being diagnosed with a right ear infection and strep throat. She reports some pain with eating. She denies concern for dehydration. She denies fevers at home. Reports the hearing in her right ear has gotten worse. Related Data Previous Rx's Medication Instructions Recorded mometasone-formoterol HFA 100 2 puff inhalation BID #13 grams 01/18/23 mcg-5 mcg/actuation aerosol inhaler (Dulera) levofloxacin 750 mg tablet 750 mg PO DAILY 4 days #4 tabs 02/26/23 methylprednisolone 4 mg tablets in See Rx Instructions PO PER PKG DIR 02/28/23 a dose pack (Medrol (Yao)) #21 tabs levothyroxine 50 mcg tablet 50 mcg PO DAILY #30 tabs 03/02/23 cefdinir 300 mg capsule 300 mg PO BID 10 days #20 caps 03/23/23 Allergies Allergy/AdvReac Type Severity Reaction Status Date / Time Penicillins Allergy Intermediate I-RASH Verified 02/28/23 13:49 peanut Allergy Unknown Allergy Verified 02/28/23 13:49 test showed pt allergic to peanuts amoxicillin Allergy Verified 02/28/23 13:49 [facility] Disclaimer: The information contained in this section may have been updated after the patient was seen, as this information can be updated by other users. Medical History (Updated 03/26/23 @ 17:32 by Vicente Waters MD) Abdominal pain Acute viral syndrome Close exposure to COVID-19 virus Contusion of face Pharyngitis Sinusitis Family History Mother Thyroid disorder Sister Thyroid disorder Social History Smoking Status: Never smoker alcohol intake: never substance use type: denies use current occupational status: employed Travel in the last 8 weeks: None ROS Obtained: Yes All systems reviewed & no additional complaints except as documented Physical Exam General General appearance: alert and in no apparent distress Head Head exam: atraumatic and normocephalic Eye Eye exam: Present normal appearance, PERRL and EOMI ENT ENT exam: Present normal external ear exam and other (Right TM bulging and opaque with mild erythema, erythematous posterior oropharynx with mildly enlarged tonsils, mild exudate, no tonsillar pillar depression, no evidence of RPA) Neck Neck exam: Present normal inspection and full ROM Chest Chest inspection: Present normal inspection and symmetric chest wall rise; A bsent tenderness Respiratory Respiratory exam: Present normal lung sounds bilaterally; Absent respiratory distress Cardiovascular Cardiovascular exam: Present regular rate and normal rhythm Abdominal Exam Abdominal exam: Present soft; Absent distention, tenderness or guarding Extremities Exam Extremities exam: Present normal inspection; Absent edema or joint swelling Back Exam Back exam: Present normal inspection; Absent tenderness Neurological Exam Neurological exam: Present alert and oriented X3; Absent motor sensory deficit Psychiatric Psychiatric exam: Present normal affect and normal mood Skin Skin exam: Present warm, dry and normal color Lymphatic Lymphatic Findings: no adenopathy Medical Decision Making Medical Records Medical records reviewed: Yes I reviewed the patient's medical records. Fab Inquiry Pt receiving controlled substance: No Fab was queried for this patient: No Lab Data Lab results reviewed: Yes I reviewed the patient's lab results. Orders (Tests/Meds): ED MEDICATIONS Generic Name Dose Route Start Last Admin Trade Name Freq PRN Reason Stop Dose Admin Tetracycl/Hydrocort/Nystatin/Diphen 15 ml 03/26/23 21:00 Magic Mouthwash 300ml Bottle PO 04/25/23 20:59 QID DONG Discontinued Medications Generic Name Dose Route Start Last Admin Trade Name Freq PRN Reason Stop Dose Admin Dexamethasone 10 mg 03/26/23 17:29 Dexamethasone 4mg Tablet PO 03/26/23 17:30 ONCE ONE Medical Decision Narrative: 27-year-old female, history as reported above, presents with persistent right ear pain and throat pain after being diagnosed with otitis media and strep throat 3 days ago, continues to take cefdinir as prescribed. History was obtained via conversation with patient. On arrival, patient is [afebrile, hemodynamically stable, satting appropriately, alert, oriented x4, GCS 15], moving all extremities spontaneously. Full physical exam performed and significant for findings consistent with right ear infection and pharyngitis. Differential includes but is not limited to otitis media, otitis externa, mastoiditis, viral/bacterial pharyngitis, BRAIN PICKER, RPA. Patient was given Magic mouthwash and a dose of Decadron for symptomatic management and correction of underlying abnormalities. Extensive discussion had with patient regarding her presentation. She is still early in the course of treatment, was prescribed appropriate antibiotic therapy to cover ear infection and strep throat. No evidence of deep space infection at this time. Return precautions given. Patient discharged stable condition with instructions to continue taking cefdinir as prescribed. Procedures Risk/Benefits of Procedure(s) Were Explained: Yes Critical Care Critical Care Time Critical Care Time: No
[2023-03-26 17:23] VITALS: BP 122/80; PULSE 84; O2SAT 97
[2023-03-26 17:30] VITALS: BP 121/69; PULSE 79; O2SAT 97
[2023-03-26] MEDS: DEXAMETHASONE 4MG TABLET 10 MG PO (17:42)
[2023-03-26] MEDS: MAGIC MOUTHWASH 300ML BOTTLE 15 ML PO (17:43)
[2023-03-26 17:58] VITALS: BP 121/69; PULSE 79; RESP 15; TEMP 37.2; O2SAT 97
== END 2023-03-26 17:58 | disposition home or self-care (01) ==
PROVIDERS: Emergency Provider Emergency Medicine; PCP Physician Assistant
DX: H66.91 Otitis media, unspecified, right ear (principal); J02.9 Acute pharyngitis, unspecified
CPT/HCPCS: 99283

== ENCOUNTER 2023-05-10 19:22 | Outpatient (CLI) | payer OTHER, SELFPAY ==
[2023-05-10 19:18] LABS: Thyroid Stimulating Hormone 3.34 uIU/mL (0.465-4.68)
== END 2023-05-10 23:59 ==
LOC: LAB.DROPOF 19:22
PROVIDERS: PCP Physician Assistant; Visit Provider Physician Assistant
DX: E03.8 Other specified hypothyroidism (principal)
CPT/HCPCS: 84443

== ENCOUNTER 2023-05-24 13:55 | Outpatient (CLI) | payer OTHER, SELFPAY ==
--- NOTE | 2023-05-24 13:55 | US_ITS ---
FINAL REPORT TECHNIQUE: Limited sonographic images of the thyroid were obtained. CLINICAL HISTORY: thyromegaly FINDINGS: The thyroid is enlarged with a lobular contour and heterogeneous echotexture. The right lobe of the thyroid measures 5.3 x 1.8 x 2.8. There is a solid, isoechoic nodule measuring 13 x 11 x 9 mm consistent with TI-RADS category 3. There is a solid, isoechoic nodule measuring 14 x 12 x 10 mm consistent with TI-RADS category 3. The left lobe of the thyroid measures 4.4 x 1.6 x 2.3. There is a solid, isoechoic nodule measuring 10 x 9 x 8 mm consistent with TI-RADS category 3. There is a solid, hypoechoic nodule measuring 17 x 14 x 9 mm consistent with TI-RADS category 4. The isthmus measures 6 mm. No mass or nodule is identified. IMPRESSION: Bilateral thyroid lobe nodules. Recommend FNA on the dominant left lobe nodule. Reviewed, Interpreted and Dictated by Hank Olmos III, MD Transcribed by Saranya Joaquin Authenticated and [facility]
== END 2023-05-24 23:59 ==
LOC: RAD 13:55
PROVIDERS: PCP Physician Assistant; Visit Provider Physician Assistant
DX: E01.0 Iodine-deficiency related diffuse (endemic) goiter (principal)
CPT/HCPCS: 76536

== ENCOUNTER 2023-06-03 08:51 | Outpatient (CLI) | payer OTHER, SELFPAY ==
--- NOTE | 2023-06-03 09:02 | US_ITS ---
FINAL REPORT CLINICAL HISTORY: E03.9 - Hypothyroidism, unspecified-- lt thyroid fna-- vish collins FINDINGS: Ultrasound guided thyroid biopsy. HISTORY: Thyroid nodule. PROCEDURE: After informed consent was obtained and a time-out was performed, the patient was prepped and draped in usual sterile fashion over the anterior neck. Utilizing local anesthesia and sterile technique with a 25-gauge needle, access to the lesion was obtained. Four passes were made. The patient received no conscious sedation. The patient tolerated procedure well and left the department in good condition. IMPRESSION: Status post ultrasound guided biopsy of a thyroid nodule without immediate complication. Films reviewed , interpreted and dictated by Dr. Olmos Transcribed by Vish Keller PA-C. Reviewed, Interpreted and Dictated by Hank Olmos III, MD Transcribed by AKIKO Macedo Authenticated and [facility]
== END 2023-06-03 23:59 ==
LOC: RAD 08:52
PROVIDERS: PCP Physician Assistant; Visit Provider Physician Assistant
DX: E03.9 Hypothyroidism, unspecified (principal); E04.1 Nontoxic single thyroid nodule
CPT/HCPCS: 10005

== ENCOUNTER 2023-06-28 08:47 | Emergency (ER) | payer OTHER, SELFPAY ==
[2023-06-28 08:50] VITALS: BP 114/77; PULSE 84; RESP 19; TEMP 36.6; O2SAT 99; BMI 34.9
--- NOTE | 2023-06-28 09:05 | ED_ITS ---
Discharge Plan Disposition Patient Disposition: Home, Self-Care Condition: Good Prescriptions Prescriptions: New polymyxin B sulf-trimethoprim 10,000 unit- 1 mg/mL drops 2 drp ophthalmic (eye) Q6H 7 Days Qty: 10 0RF Rx Instructions: while awake; do not exceed 6 doses in 24 hours No Action Dulera 100-5 mcg/actuation HFA aerosol inhaler 2 puff inhalation BID Qty: 13 2RF levothyroxine 50 mcg tablet 50 mcg PO DAILY Qty: 30 2RF ergocalciferol (vitamin D2) 1,250 mcg (50,000 unit) capsule See Rx Instructions .ROUTE .COMPLEX Patient Comments: TAKE 1 CAPSULE BY MOUTH ONCE WEEKLY ON SAME DAY EACH WEEK Rx Instructions: TAKE 1 CAPSULE BY MOUTH ONCE WEEKLY ON SAME DAY EACH WEEK Referrals Follow up/Referrals: Nellie Claudio PA [Primary Care Provider] - See instructions Activity Restrictions/Add. Instructions Additional Instructions/Restrictions: Wash hands well before and after applying drops to eyes Clean matting from both eyes with warm water and baby shampoo Follow up with your Eye Doctor if no improvement or any worsening of symptoms Use drops as directed Clinical Impressions Clinical Impression: Conjunctivitis Stand Alone Forms Stand Alone Forms: Work/School Release Instructions Patient Instructions: DI for Conjunctivitis, Conjunctivitis Discharge ED Provider: Stefania Daley [facility] General Stated complaint: eyes burning, swelling, drainage Mode of Arrival: Ambulatory Source of Information: Patient Limitations: No Limitations Time Seen by Provider: 06/28/23 09:05 Description of Symptoms (Recalled from Triage Doc. by RN): Pt's symptoms are bilateral eye redness, itching, burning, and discharge. HEENT Symptoms (Recalled from RN notes): Yes Resp Symptoms (Recalled from RN notes): No Skin Symptoms (Recalled from RN notes): No MS Symptoms (Recalled from RN notes): No Functional Status (Recalled from RN notes): n/a History of Present Illness Provider Complaint: Patient states that son had pink eye a few weeks ago and now she has started with matting, bilateral eye redness, drainage and feels irritated not sure if she may have it now or not Related Data Home Medications Medication Instructions Recorded Confirmed ergocalciferol (vitamin D2) 1,250 See Rx Instructions .Route .COMPLEX 06/28/23 06/28/23 mcg (50,000 unit) capsule Previous Rx's Medication Instructions Recorded mometasone-formoterol HFA 100 2 puff inhalation BID #13 grams 01/18/23 mcg-5 mcg/actuation aerosol inhaler (Dulera) levothyroxine 50 mcg tablet 50 mcg PO DAILY #30 tabs 06/14/23 polymyxin B sulfate 10,000 2 drp ophthalmic (eye) Q6H 7 days 06/28/23 unit-trimethoprim 1 mg/mL eye drops #10 mL Allergies Allergy/AdvReac Type Severity Reaction Status Date / Time Penicillins Allergy Intermediate I-RASH Verified 06/28/23 09:04 peanut Allergy Unknown Allergy Verified 06/28/23 09:04 test showed pt allergic to peanuts amoxicillin Allergy Verified 06/28/23 09:04 Worker's Comp Is this a Worker's Comp case?: No [facility] Disclaimer: The information contained in this section may have been updated after the pat ient was seen, as this information can be updated by other users. Medical History Abdominal pain Acute viral syndrome Close exposure to COVID-19 virus Contusion of face Pharyngitis Sinusitis Family History Mother Thyroid disorder Sister Thyroid disorder Social History Smoking Status: Never smoker alcohol intake: never substance use type: denies use current occupational status: employed Travel in the last 8 weeks: None ROS Obtained: Yes All systems reviewed & no additional complaints except as documented and Yes Systems reviewed as appropriate & no additional complaints except as documented Constitutional Constitutional: Reports system reviewed and no additional complaints, except as documented and Reports as per HPI Eyes Eyes: Reports system reviewed and no additional complaints, except as documented, Reports as per HPI, Reports eye discharge and Reports irritation ENT Ears, Nose, Mouth, and Throat: Reports system reviewed and no additional complaints, except as documented and Reports as per HPI Cardiovascular Cardiovascular: Reports system reviewed and no additional complaints, except as documented and Reports as per HPI Respiratory Respiratory: Reports system reviewed and no additional complaints, except as documented and Reports as per HPI Gastrointestinal Gastrointestingal: Reports system reviewed and no additional complaints, except as documented and as per HPI Physical Exam General General appearance: alert and in no apparent distress Eye Eye exam: Present conjunctival redness (bilateral) and discharge (discharge noted with matting particles noted in lashes) ENT ENT exam: Present mucous membranes moist Respiratory Respiratory exam: Present normal lung sounds bilaterally; Absent respiratory distress or wheezes Cardiovascular Cardiovascular exam: Present regular rate, normal rhythm and normal heart sounds Abdominal Exam Abdominal exam: Present soft and normal bowel sounds; Absent distention or tenderness Neurological Exam Neurological exam: Present alert, oriented X3 and normal gait Medical Decision Making Fab Inquiry Pt receiving controlled substance: No Fab was queried for this patient: No Vital Signs: 06/28/23 08:50 Temperature 97.8 F Temperature Source Oral Pulse Rate [Right Radial] 84 Respiratory Rate 19 Blood Pressure [Right Arm] 114/77 Blood Pressure Mean [Right Arm] 89 Blood Pressure Source [Right Arm] Automatic Cuff Blood Pressure Position [Right Arm] Sitting 02 Sat by Pulse Oximetry 99 Oxygen Delivery Method Room Air
[2023-06-28 09:14] VITALS: BP 114/77; PULSE 84; RESP 19; TEMP 36.6; O2SAT 99
== END 2023-06-28 09:14 | disposition home or self-care (01) ==
PROVIDERS: Emergency Provider Nurse Practitioner; PCP Physician Assistant
DX: H10.33 Unspecified acute conjunctivitis, bilateral (principal)
CPT/HCPCS: 99212; 99214; G0463

== ENCOUNTER 2023-09-08 18:18 | Emergency (ER) | payer OTHER, SELFPAY ==
[2023-09-08 18:25] VITALS: BP 126/78; PULSE 84; RESP 20; TEMP 36.7; O2SAT 100; BMI 33.5
--- NOTE | 2023-09-08 18:59 | ED_ITS ---
Discharge Plan Disposition Patient Disposition: Home, Self-Care Condition: Good Prescriptions Prescriptions: New ondansetron 4 mg Tablet,Disintegrating 4 mg PO Q8H PRN (Reason: Nausea) Qty: 12 0RF No Action levothyroxine 50 mcg tablet 50 mcg PO DAILY Qty: 30 2RF ergocalciferol (vitamin D2) 1,250 mcg (50,000 unit) capsule See Rx Instructions .ROUTE .COMPLEX Patient Comments: TAKE 1 CAPSULE BY MOUTH ONCE WEEKLY ON SAME DAY EACH WEEK Rx Instructions: TAKE 1 CAPSULE BY MOUTH ONCE WEEKLY ON SAME DAY EACH WEEK Referrals Follow up/Referrals: Nellie Claudio PA [Primary Care Provider] - See instructions Activity Restrictions/Add. Instructions Additional Instructions/Restrictions: Drink plenty of fluids. Take tylenol or ibuprofen for pain or fever. Take the medications as directed. Follow up with your regular doctor. GO TO THE ER FOR ANY WORSENING SYMPTOMS Clinical Impressions Clinical Impression: Gastroenteritis Stand Alone Forms Stand Alone Forms: Work/School Release Instructions Patient Instructions: DI for Viral Gastroenteritis -- Adult, Ondansetron Discharge ED Provider: George Carson [facility] General Stated complaint: nausea/diarrhea Mode of Arrival: Ambulatory Source of Information: Patient Limitations: No Limitations Time Seen by Provider: 09/08/23 18:46 Description of Symptoms (Recalled from Triage Doc. by RN): PATIENT C/O NAUSEA AND VOMITING THAT STARTED TODAY HEENT Symptoms (Recalled from RN notes): No Resp Symptoms (Recalled from RN notes): No Skin Symptoms (Recalled from RN notes): No MS Symptoms (Recalled from RN notes): No Functional Status (Recalled from RN notes): WNL Related Data Home Medications Medication Instructions Recorded Confirmed ergocalciferol (vitamin D2) 1,250 See Rx Instructions .Route .COMPLEX 06/28/23 09/08/23 mcg (50,000 unit) capsule Previous Rx's Medication Instructions Recorded levothyroxine 50 mcg tablet 50 mcg PO DAILY #30 tabs 06/14/23 ondansetron 4 mg disintegrating 4 mg PO Q8H PRN Nausea #12 tabs 09/08/23 tablet Allergies Allergy/AdvReac Type Severity Reaction Status Date / Time Penicillins Allergy Intermediate I-RASH Verified 07/04/23 14:11 peanut Allergy Unknown Allergy Verified 07/04/23 14:11 test showed pt allergic to peanuts amoxicillin Allergy Verified 07/04/23 14:11 Worker's Comp Is this a Worker's Comp case?: No [facility] Disclaimer: The information contained in this section may have been updated after the patient was seen, as this information can be updated by other users. Medical History Abdominal pain Acute viral syndrome Close exposure to COVID-19 virus Contusion of face Pharyngitis Sinusitis Family History Mother Thyroid disorder Sister Thyroid disorder Social History Smoking Status: Never smoker alcohol intake: never substance use type: denies use current occupational status: employed Travel in the last 8 weeks: None ROS Obtained: Yes All systems reviewed & no additional complaints except as documented Constitutional Constitutional: Denies chills, Denies fever(s) and Reports poor appetite ENT Ears, Nose, Mouth, and Throat: Denies dizziness and Denies sore throat Cardiovascular Cardiovascular: Denies dyspnea Respiratory Respiratory: Denies chest congestion, Denies cough and Denies dyspnea Gastrointestinal Gastrointestingal: Reports as per HPI; Denies abdominal pain Genitourinary Female Genitourinary: Denies difficulty voiding, Denies dysuria, Denies hematuria, Denies urinary frequency, Denies urinary incontinence, Denies urinary hesitancy and Denies urinary urgency Musculoskeletal Musculoskeletal: Denies arthralgias Integumentary/Breasts Skin/Breast: Denies rash Neurologic Neurologic: Denies dizziness Physical Exam General General appearance: alert and in no apparent distress Head Head exam: atraumatic and normocephalic Eye Eye exam: Present normal appearance, PERRL and EOMI ENT ENT exam: Present normal exam, normal oropharynx, mucous membranes moist, TM's normal bilaterally and normal external ear exam Neck Neck exam: Present normal inspection, full ROM and trachea midline; Absent tenderness, meningismus or lymphadenopathy Chest Chest inspection: Present normal inspection and symmetric chest wall rise; Absent tenderness, rash or abscess Respiratory Respiratory exam: Present normal lung sounds bilaterally; Absent respiratory distress, wheezes or stridor Cardiovascular Cardiovascular exam: Present regular rate and normal rhythm; Absent irregular rhythm, systolic murmur, diastolic murmur or JVD Abdominal Exam Abdominal exam: Present soft and hyperactive bowel sounds; Absent distention, tenderness, guarding, rebound, rigidity, psoas sign, obturator sign, heel tap sign, Fulton's sign, Rovsing's sign or tenderness at McBurney's Point Extremities Exam Extremities exam: Present normal inspection and full ROM; Absent tenderness Back Exam Back exam: Present normal inspection and full ROM; Absent tenderness, CVA tenderness (R) or CVA tenderness (L) Neurological Exam Neurological exam: Present alert, oriented X3 and CN II-XII intact Psychiatric Psychiatric exam: Present normal affect and normal mood Skin Skin exam: Present warm, dry, intact and normal color Lymphatic Lymphatic Findings: no adenopathy Medical Decision Making Medical Records Medical records reviewed: No I reviewed the patient's medical records. Fab Inquiry Pt receiving controlled substance: No Vital Signs: 09/08/23 18:25 Temperature 98.1 F Temperature Source Oral Pulse Rate [Left Brachial] 84 Respiratory Rate 20 Blood Pressure [Left Arm] 126/78 Blood Pressure Mean [Left Arm] 94 Blood Pressure Source [Left Arm] Automatic Cuff Blood Pressure Position [Left Arm] Sitting 02 Sat by Pulse Oximetry 100 Oxygen Delivery Method Room Air
[2023-09-08 19:11] VITALS: BP 126/78; PULSE 84; RESP 20; TEMP 36.7; O2SAT 100
== END 2023-09-08 19:14 | disposition home or self-care (01) ==
PROVIDERS: Emergency Provider Nurse Practitioner Family; PCP Physician Assistant
DX: K52.9 Noninfective gastroenteritis and colitis, unspecified (principal); R11.2 Nausea with vomiting, unspecified
CPT/HCPCS: 99212; 99214; G0463

== ENCOUNTER 2023-11-16 21:48 | Emergency (ER) | payer OTHER, SELFPAY ==
[2023-11-16 21:48] VITALS: BP 120/73; PULSE 78; RESP 16; TEMP 36.8; O2SAT 98; BMI 34.5
--- NOTE | 2023-11-16 22:18 | HMH.EDGENADL ---
Discharge Plan Disposition Patient Disposition: Home, Self-Care Condition: Good Prescriptions Prescriptions: New clindamycin HCl 300 mg capsule 600 mg PO TID 10 Days Qty: 60 0RF No Action levothyroxine 50 mcg tablet 50 mcg PO DAILY Qty: 30 2RF ergocalciferol (vitamin D2) 1,250 mcg (50,000 unit) capsule See Rx Instructions .ROUTE .COMPLEX Patient Comments: TAKE 1 CAPSULE BY MOUTH ONCE WEEKLY ON SAME DAY EACH WEEK Rx Instructions: TAKE 1 CAPSULE BY MOUTH ONCE WEEKLY ON SAME DAY EACH WEEK ondansetron 4 mg Tablet,Disintegrating 4 mg PO Q8H PRN (Reason: Nausea) Qty: 12 0RF Referrals Follow up/Referrals: Nellie Claudio PA [Primary Care Provider] - See instructions Activity Restrictions/Add. Instructions Additional Instructions/Restrictions: Please keep your scheduled appointment in the morning with dentistry. Should things fall through there is always the walk-in dentistry clinic at the [facility]. Return to the ER for any worsening signs or symptoms as needed. Clinical Impressions Clinical Impression: Dentalgia, Dental caries Instructions Patient Instructions: DI for Dental Pain Print Language Print Language: Albanian Discharge ED Provider: Jarrell Sotelo General Adult HPI <AKIKO Nuñez - Last Filed: 11/16/23 22:50> General Chief complaint: Dental/Oral Stated complaint: swelling pain in left side of face Time Seen by Provider: 11/16/23 22:18 Mode of Arrival: Ambulatory Source of Information: Patient Limitations: No Limitations Description of Symptoms (Recalled from ER Triage Doc. by RN): pt reports having a broken tooth, reports having a dentist appt in am, but now having pain and swelling of left side of face History of Present Illness HPI narrative: Patient presents for evaluation of tooth and face pain. Patient has known dental caries and has had previously tooth extraction for same. Patient does have visit scheduled for tomorrow with her dentist due to left upper molar pain after it fractured, however pain has not abated despite [id number] attempts at home and she feels like her face might be swelling some. She denies fever chills hemoptysis hematochezia melena nausea vomiting diarrhea difficulty eating or drinking. Related Data Home Medications ?Medication ?Instructions ?Recorded ?Confirmed ergocalciferol (vitamin D2) 1,250 See Rx Instructions .Route .COMPLEX 06/28/23 09/08/23 mcg (50,000 unit) capsule Previous Rx's ?Medication ?Instructions ?Recorded levothyroxine 50 mcg tablet 50 mcg PO DAILY #30 tabs 06/14/23 ondansetron 4 mg disintegrating 4 mg PO Q8H PRN Nausea #12 tabs 09/08/23 tablet clindamycin HCl 300 mg capsule 600 mg (2 x 300 mg) PO TID 10 days 11/16/23 #60 caps Allergies Allergy/AdvReac Type Severity Reaction Status Date / Time Penicillins Allergy Intermediate I-RASH Verified 07/04/23 14:11 peanut Allergy Unknown Allergy Verified 07/04/23 14:11 test showed pt allergic to peanuts amoxicillin Allergy Verified 07/04/23 14:11 PFSH <AKIKO Nuñez - Last Filed: 11/16/23 22:50> PFS Disclaimer: The information contained in this section may have been updated after the patient was seen, as this information can be updated by other users. Medical History Abdominal pain Acute viral syndrome Close exposure to COVID-19 virus Contusion of face Pharyngitis Sinusitis Family History Mother Thyroid disorder Sister Thyroid disorder Social History Smoking Status: Never smoker alcohol intake: never substance use type: denies use current occupational status: employed Travel in the last 8 weeks: None <AKIKO Nuñez - Last Filed: 11/16/23 22:50> ROS Obtained: Yes Systems reviewed as appropriate & no additional complaint
[2023-11-16 22:40] VITALS: BP 120/73; PULSE 78; RESP 16; TEMP 36.8; O2SAT 98
== END 2023-11-16 22:46 | disposition home or self-care (01) ==
PROVIDERS: Emergency Provider Emergency Medicine; PCP Physician Assistant
DX: S02.5XXA Fracture of tooth (traumatic), initial encounter for closed fracture (principal); K08.89 Other specified disorders of teeth and supporting structures; K02.9 Dental caries, unspecified; X58.XXXA Exposure to other specified factors, initial encounter
CPT/HCPCS: 99283

== ENCOUNTER 2023-12-07 17:18 | Emergency (ER) | payer MEDICAID, SELFPAY ==
[2023-12-07 18:19] VITALS: BP 113/74; PULSE 65; RESP 20; TEMP 36.7; O2SAT 100; BMI 34.7
--- NOTE | 2023-12-07 18:33 | EXP.UTC ---
Discharge Plan Disposition Patient Disposition: Home, Self-Care Condition: Good Prescriptions Prescriptions: New methocarbamol 500 mg tablet 500 mg PO TID PRN (Reason: muscle spasm) Qty: 12 0RF ibuprofen 600 mg tablet 600 mg PO Q6HP PRN (Reason: Moderate Pain) Qty: 20 0RF Referrals Follow up/Referrals: Provider,Referral, [Primary Care Provider] - See instructions Activity Restrictions/Add. Instructions Additional Instructions/Restrictions: Take medication as prescribed Follow up with your Family Doctor if symptoms persist and do not improve Return if needed Straight to ER if any life threatening symptoms Clinical Impressions Clinical Impression: Muscle spasm Instructions Patient Instructions: DI for Tendinitis, DI for Muscle Spasm Print Language Print Language: Yakut Discharge ED Provider: Stefania Daley [facility] [place] HPI General Stated complaint: swollen hands,neck pain,bck pain Mode of Arrival: Ambulatory Source of Information: Patient Time Seen by Provider: 12/07/23 18:34 Description of Symptoms (Recalled from Triage Doc. by RN): PAIN IN BOTH HANDS IN THE FINGERS, AND NECK HEENT Symptoms (Recalled from RN notes): No Resp Symptoms (Recalled from RN notes): No Skin Symptoms (Recalled from RN notes): No MS Symptoms (Recalled from RN notes): Yes Functional Status (Recalled from RN notes): WNL History of Present Illness Provider Complaint: Patient states that she feels like she has slept wrong and having muscle spasms in the left side of her neck States that also she started a new job and has been having pain in both hands since starting the job Denies injury Related Data Previous Rx's ?Medication ?Instructions ?Recorded ibuprofen 600 mg tablet 600 mg PO Q6HP PRN Moderate Pain 12/07/23 #20 tabs methocarbamol 500 mg tablet 500 mg PO TID PRN muscle spasm #12 12/07/23 tabs Allergies Allergy/AdvReac Type Severity Reaction Status Date / Time Penicillins Allergy Intermediate I-RASH Verified 07/04/23 14:11 peanut Allergy Unknown Allergy Verified 07/04/23 14:11 test showed pt allergic to peanuts amoxicillin Allergy Verified 07/04/23 14:11 Worker's Comp Is this a Worker's Comp case?: No [facility] Disclaimer: The information contained in this section may have been updated after the patient was seen, as this information can be updated by other users. Medical History Abdominal pain Acute viral syndrome Close exposure to COVID-19 virus Contusion of face Pharyngitis Sinusitis Family History Mother Thyroid disorder Sister Thyroid disorder Social History Smoking Status: Never smoker alcohol intake: never substance use type: denies use current occupational status: employed Travel in the last 8 weeks: None ROS Obtained: Yes All systems reviewed & no additional complaints except as documented and Yes Systems reviewed as appropriate & no additional complaints except as documented Constitutional Constitutional: Reports system reviewed and no additional complaints, except as documented and Reports as per HPI ENT Ears, Nose, Mouth, and Throat: Reports system reviewed and no additional complaints, except as documented and Reports as per HPI Cardiovascular Cardiovascular: Reports system reviewed and no additional complaints, except as documented and Reports as per HPI Respiratory Respiratory: Reports system reviewed and no additional complaints, except as documented and Reports as per HPI Gastrointestinal Gastrointestingal: Reports system reviewed and no additional complaints, except as documented and as per HPI Musculoskeletal Musculoskeletal: Reports system reviewed and no additional complaints, except as documented, Reports as per HPI and Reports other Comments: muscle spasms in left side of neck and pain in both hands since starting job last week Denies known injury Physical Exam General General appearance: alert and in no apparent distress ENT ENT exam: Present mucous membranes moist Respiratory Respiratory exam: Present normal lung sounds bilaterally; Absent respiratory distress or wheezes Cardiovascular Cardiovascular exam: Present regular rate, normal rhythm and normal heart sounds Extremities Exam Extremities exam: Present other (pain in both hands with movement and gripping reports pain started after starting new job last week) Back Exam Back exam: Present tenderness and muscle spasm Back 1 view image: 1. reports spasm like pain Denies known injury reports thinks she slept wrong Neurological Exam Neurological exam: Present alert, oriented X3 and normal gait Medical Decision Making Medical Records Screening: Per USPSTF and CDC recommendations, given the prevalence of disease in our region, it is our hospital?s policy to screen for HIV and viral Hepatitis for all patients aged 18 and over and those with ongoing risk factors. Fab Inquiry Pt receiving controlled substance: No Fab was queried for this patient: No Vital Signs: 12/07/23 18:19 Temperature 98.0 F Temperature Source Oral Pulse Rate [Left Brachial] 65 Respiratory Rate 20 Blood Pressure [Left Arm] 113/74 Blood Pressure Mean [Left Arm] 87 02 Sat by Pulse Oximetry 100
[2023-12-07 19:15] VITALS: BP 113/74; PULSE 65; RESP 20; TEMP 36.7
== END 2023-12-07 19:15 | disposition home or self-care (01) ==
PROVIDERS: Emergency Provider Nurse Practitioner
DX: M54.2 Cervicalgia (principal); M62.838 Other muscle spasm
CPT/HCPCS: 99212; 99214; G0463

== ENCOUNTER 2024-01-10 18:36 | Emergency (ER) | payer MEDICAID, SELFPAY ==
[2024-01-10 19:40] VITALS: BP 115/76; PULSE 83; RESP 21; TEMP 36.8; O2SAT 100; BMI 33.8
--- NOTE | 2024-01-10 20:10 | ED_ITS ---
Discharge Plan Disposition Patient Disposition: Home, Self-Care Condition: Good Prescriptions Prescriptions: New ondansetron 4 mg tablet,disintegrating 4 mg PO Q8H PRN (Reason: nausea and vomiting) Qty: 10 0RF Referrals Follow up/Referrals: Provider,Referral, MD [Primary Care Provider] - See instructions Activity Restrictions/Add. Instructions Additional Instructions/Restrictions: Drink extra fluids with and between meals. If you have difficulty drinking, try very small amounts of water or suck on ice chips. ? Avoid fruit juices, as these do not replace minerals and can actually increase diarrhea. ? Children and adults can use sports drinks to replenish electrolytes. Younger children and infants should use products formulated for children, like oral rehydration solutions. ? Eat food in small amounts and let your stomach recover. ? Get lots of rest. You may feel tired or weak. ? No greasy or fried foods for the next 24-48 hours BRAT diet Bananas Rice Apples and [place] ? Make sure to drink plenty of liquids ? Return if needed ? Straight to ER if any life threatening symptoms ? Zofran as prescribed ? You was given an outpatient order for diarrhea panel, please collect specimen and bring back to outpatient lab then call back to the [facility] or follow up with family doctor for results ? Follow up with family doctor in the next 48-72 hours if no improvement or any worsening of symptoms Clinical Impressions Clinical Impression: Nausea vomiting and diarrhea Stand Alone Forms Stand Alone Forms: Work/School Release Instructions Patient Instructions: Nausea and Vomiting-Adult, Diarrhea Print Language Print Language: Indonesian Discharge ED Provider: Stefania Daley [facility] [place] General Stated complaint: V/D,CHACKO Mode of Arrival: Ambulatory Source of Information: Patient Limitations: No Limitations Time Seen by Provider: 01/10/24 20:10 Description of Symptoms (Recalled from Triage Doc. by RN): PATIENT C/O STOMACH ACHE, HEADACHE, DIARRHEA AND VOMITING THAT STARTED TODAY HEENT Symptoms (Recalled from RN notes): Yes Resp Symptoms (Recalled from RN notes): No Skin Symptoms (Recalled from RN notes): No MS Symptoms (Recalled from RN notes): No Functional Status (Recalled from RN notes): WNL History of Present Illness Provider Complaint: Patient states that she was up most of last night with nausea vomiting and diarrhea States that she wasnt able to work today and the vomiting has stopped but she is still having nausea and diarrhea so she came in to get a work note and get something for the nausea Related Data Previous Rx's ?Medication ?Instructions ?Recorded ondansetron 4 mg disintegrating 4 mg PO Q8H PRN nausea and 01/10/24 tablet vomiting #10 tabs Allergies Allergy/AdvReac Type Severity Reaction Status Date / Time Penicillins Allergy Intermediate I-RASH Verified 07/04/23 14:11 peanut Allergy Unknown Allergy Verified 07/04/23 14:11 test showed pt allergic to peanuts amoxicillin Allergy Verified 07/04/23 14:11 Worker's Comp Is this a Worker's Comp case?: No [facility] Disclaimer: The information contained in this section may have been updated after the patient was seen, as this information can be updated by other users. Medical History Abdominal pain Acute viral syndrome Close exposure to COVID-19 virus Contusion of face Pharyngitis Sinusitis Family History Mother Thyroid disorder Sister Thyroid disorder Social History Smoking Status: Never smoker alcohol intake: never substance use type: denies use current occupational status: employed Travel in the last 8 weeks: None ROS Obtained: Yes All systems reviewed & no additional complaints except as documented and Yes Systems reviewed as appropriate & no additional complaints except as documented Constitutional Constitutional: Reports system reviewed and no additional complaints, except as documented, Reports as per HPI, Denies body ache, Denies chills and Denies fever(s) Cardiovascular Cardiovascular: Reports system reviewed and no additional complaints, except as documented and Reports as per HPI Respiratory Respiratory: Reports system reviewed and no additional complaints, except as documented and Reports as per HPI Gastrointestinal Gastrointestingal: Reports system reviewed and no additional complaints, except as documented, as per HPI, cramping, diarrhea, nausea and vomiting; Denies abdominal pain Physical Exam General General appearance: alert and in no apparent distress ENT ENT exam: Present mucous membranes moist Respiratory Respiratory exam: Present normal lung sounds bilaterally; Absent respiratory distress or wheezes Cardiovascular Cardiovascular exam: Present regular rate, normal rhythm and normal heart sounds Abdominal Exam Abdominal exam: Present soft and normal bowel sounds; Absent distention, tenderness, guarding, rebound or rigidity Neurological Exam Neurological exam: Present alert, oriented X3 and normal gait Medical Decision Making Medical Records Screening: Per USPSTF and CDC recommendations, given the prevalence of disease in our region, it is our hospital?s policy to screen for HIV and viral Hepatitis for all patients aged 18 and over and those with ongoing risk factors. Fab Inquiry Pt receiving controlled substance: No Fab was queried for this patient: No Vital Signs: 01/10/24 19:40 Temperature 98.2 F Temperature Source Oral Pulse Rate [Left Brachial] 83 Respiratory Rate 21 Blood Pressure [Left Arm] 115/76 Blood Pressure Mean [Left Arm] 89 Blood Pressure Source [Left Arm] Automatic Cuff Blood Pressure Position [Left Arm] Sitting 02 Sat by Pulse Oximetry 100 Oxygen Delivery Method Room Air
[2024-01-10] MEDS: ONDANSETRON 4MG ODT 4 MG SL (20:19)
[2024-01-10 20:20] VITALS: BP 115/76; PULSE 83; RESP 21; TEMP 36.8; O2SAT 100
== END 2024-01-10 20:22 | disposition home or self-care (01) ==
PROVIDERS: Emergency Provider Nurse Practitioner
DX: R11.2 Nausea with vomiting, unspecified (principal); R19.7 Diarrhea, unspecified
CPT/HCPCS: 99213; G0381; Q0162

== ENCOUNTER 2024-02-05 10:24 | Emergency (ER) | payer MEDICAID, SELFPAY ==
--- NOTE | 2024-02-05 10:44 | XR_ITS ---
PROCEDURE INFORMATION: Exam: XR Left Hand Exam date and time: 02/05/2024 11:12 AM Age: 28 years old Clinical indication: Pain; Hand; Left TECHNIQUE: Imaging protocol: Radiologic exam of the left hand. Views: 3 or more views. COMPARISON: No relevant prior studies available. FINDINGS: Bones/joints: No acute fracture or malalignment. No worrisome lytic or blastic osseous lesion. No appreciable cortical erosion or periosteal reaction. Joint spaces are preserved. Soft tissues: No soft tissue abnormality. No joint effusion. IMPRESSION: No acute fracture or malaligment.
--- NOTE | 2024-02-05 10:44 | XR_ITS ---
PROCEDURE INFORMATION: Exam: XR Right Hand Exam date and time: 02/05/2024 11:10 AM Age: 28 years old Clinical indication: Pain; Hand; Right TECHNIQUE: Imaging protocol: Radiologic exam of the right hand. Views: 3 or more views. COMPARISON: No relevant prior studies available. FINDINGS: Bones/joints: No acute fracture or malalignment. No worrisome lytic or blastic osseous lesion. No appreciable cortical erosion or periosteal reaction. Joint spaces are preserved. Soft tissues: No soft tissue abnormality. No joint effusion. IMPRESSION: No acute fracture or malaligment.
[2024-02-05 11:09] VITALS: BP 125/72; PULSE 65; RESP 18; TEMP 36.8; O2SAT 100; BMI 33.6
--- NOTE | 2024-02-05 11:14 | EXP.UTC ---
Discharge Plan Disposition Patient Disposition: Home, Self-Care Condition: Good Prescriptions Prescriptions: New methylprednisolone 4 mg Tablets,Dose Pack 4 mg PO DIRECTED 6 Days Qty: 21 0RF Rx Instructions: Take 1 pack as directed for 6 days Referrals Follow up/Referrals: Andrea Kyle DO [Staff Physician] - See instructions Casimiro Golden DO [Primary Care Provider] - See instructions Activity Restrictions/Add. Instructions Additional Instructions/Restrictions: Rest the extremity, Elevate the extremity as tolerated while you are resting. Take the medication as directed. Follow up with Dr. Kyle (orthopedics). Tendonitis of the hand can be hard to get better, so you will need to follow up. I put in a referral but you need to call his office and schedule an appointment. Follow up with your regular doctor. GO TO THE ER FOR ANY WORSENING SYMPTOMS Clinical Impressions Clinical Impression: Tendinitis of both hands Instructions Patient Instructions: DI for Tendinitis, Methylprednisolone Print Language Print Language: German Discharge ED Provider: George Carson [facility] General Stated complaint: Pain in L hand/R thumb Mode of Arrival: Ambulatory Source of Information: Patient Time Seen by Provider: 02/05/24 11:14 Description of Symptoms (Recalled from Triage Doc. by RN): HAND PAIN (LEFT HAND AND RIGHT THUMB) HEENT Symptoms (Recalled from RN notes): No Resp Symptoms (Recalled from RN notes): No Skin Symptoms (Recalled from RN notes): No MS Symptoms (Recalled from RN notes): Yes Functional Status (Recalled from RN notes): WNL Related Data Previous Rx's ?Medication ?Instructions ?Recorded methylprednisolone 4 mg tablets in 4 mg PO DIRECTED 6 days #21 tabs 02/05/24 a dose pack Allergies Allergy/AdvReac Type Severity Reaction Status Date / Time Penicillins Allergy Intermediate I-RASH Verified 07/04/23 14:11 peanut Allergy Unknown Allergy Verified 07/04/23 14:11 test showed pt allergic to peanuts amoxicillin Allergy Verified 07/04/23 14:11 Worker's Comp Is this a Worker's Comp case?: No [facility] Disclaimer: The information contained in this section may have been updated after the patient was seen, as this information can be updated by other users. Medical History Abdominal pain Acute viral syndrome Close exposure to COVID-19 virus Contusion of face Pharyngitis Sinusitis Family History Mother Thyroid disorder Sister Thyroid disorder Social History Smoking Status: Never smoker alcohol intake: never substance use type: denies use current occupational status: employed ROS Obtained: Yes All systems reviewed & no additional complaints except as documented Constitutional Constitutional: Denies chills and Denies fever(s) Eyes Eyes: Denies eye discharge ENT Ears, Nose, Mouth, and Throat: Denies dizziness, Denies otalgia and Denies sore throat Cardiovascular Cardiovascular: Denies chest pain Respiratory Respiratory: Denies shortness of breath, Denies chest congestion, Denies cough, Denies stridor and Denies wheezing Gastrointestinal Gastrointestingal: Denies nausea or vomiting Musculoskeletal Musculoskeletal: Reports as per HPI Integumentary/Breasts Skin/Breast: Denies rash Neurologic Neurologic: Denies dizziness and Denies paresthesias Allergic/Immunologic Allergic/Immunologic: Denies wheezing Physical Exam General General appearance: alert and in no apparent distress Head Head exam: atraumatic, normocephalic and normal inspection Eye Eye exam: Present normal appearance, PERRL and EOMI ENT ENT exam: Present normal exam, normal oropharynx, mucous membranes moist, TM's normal bilaterally and normal external ear exam Neck Neck exam: Present normal inspection, full ROM and trachea midline; Absent meningismus or lymphadenopathy Chest Chest inspection: Present normal inspection and symmetric chest wall rise; Absent tenderness Respiratory Respiratory exam: Present normal lung sounds bilaterally; Absent respiratory distress Cardiovascular Cardiovascular exam: Present regular rate and normal rhythm; Absent JVD Abdominal Exam Abdominal exam: Present soft and normal bowel sounds; Absent distention, tenderness or guarding Extremities Exam Extremities exam: Present normal inspection, full ROM and normal capillary refill; Absent calf tenderness Back Exam Back exam: Present normal inspection; Absent tenderness Neurological Exam Neurological exam: Present alert and oriented X3 Psychiatric Psychiatric exam: Present normal affect and normal mood Skin Skin exam: Present warm, dry, intact and normal color Lymphatic Lymphatic Findings: no adenopathy Medical Decision Making Medical Records Medical records reviewed: No I reviewed the patient's medical records. Screening: Per USPSTF and CDC recommendations, given the prevalence of disease in our region, it is our hospital?s policy to screen for HIV and viral Hepatitis for all patients aged 18 and over and those with ongoing risk factors. Fab Inquiry Pt receiving controlled substance: No Vital Signs: 02/05/24 11:09 Temperature 98.2 F Temperature Source Oral Pulse Rate [Left Radial] 65 Respiratory Rate 18 Blood Pressure [Left Arm] 125/72 Blood Pressure Mean [Left Arm] 89 02 Sat by Pulse Oximetry 100 Orders (Tests/Meds): ORDERS Category Date Time Status Hand XR right minimum 3 views [XR hand RT min 3V] Stat Exams 02/05/24 10:44 Ordered XR hand LT min 3V Stat Exams 02/05/24 10:44 Ordered
[2024-02-05 12:06] VITALS: BP 125/72; PULSE 65; RESP 18; TEMP 36.8
== END 2024-02-05 12:08 | disposition home or self-care (01) ==
PROVIDERS: Emergency Provider Nurse Practitioner Family; PCP Internal Medicine
DX: M65.89 Other synovitis and tenosynovitis, multiple sites (principal)
CPT/HCPCS: 73130; 99213; G0381

== ENCOUNTER 2024-04-24 18:30 | Emergency (ER) | payer MEDICAID, SELFPAY ==
--- NOTE | 2024-04-24 19:57 | EXP.UTC ---
Discharge Plan Disposition Patient Disposition: Home, Self-Care Condition: Good Prescriptions Prescriptions: No Action methylprednisolone 4 mg Tablets,Dose Pack 4 mg PO DIRECTED 6 Days Qty: 21 0RF Rx Instructions: Take 1 pack as directed for 6 days Referrals Follow up/Referrals: Casimiro Golden DO [Primary Care Provider] - See instructions Activity Restrictions/Add. Instructions Additional Instructions/Restrictions: Drink plenty of fluids. Take tylenol or ibuprofen for pain or fever. Take the medications as directed. Follow up with your regular doctor. GO TO THE ER FOR ANY WORSENING SYMPTOMS Clinical Impressions Clinical Impression: Gastroenteritis, Acute viral syndrome Stand Alone Forms Stand Alone Forms: Work/School Release Instructions Patient Instructions: DI for Viral Gastroenteritis -- Adult, Ondansetron Print Language Print Language: Singaporean Discharge ED Provider: George Carson [facility] [place] [place] General Stated complaint: vomiting,weakness,headache Time Seen by Provider: 04/24/24 19:57 History of Present Illness Provider Complaint: She states that since this morning she has had n/v/d. Related Data Previous Rx's ?Medication ?Instructions ?Recorded methylprednisolone 4 mg tablets in 4 mg PO DIRECTED 6 days #21 tabs 02/05/24 a dose pack Allergies Allergy/AdvReac Type Severity Reaction Status Date / Time Penicillins Allergy Intermediate I-RASH Verified 07/04/23 14:11 peanut Allergy Unknown Allergy Verified 07/04/23 14:11 test showed pt allergic to peanuts amoxicillin Allergy Verified 07/04/23 14:11 [facility] Disclaimer: The information contained in this section may have been updated after the patient was seen, as this information can be updated by other users. Medical History Abdominal pain Acute viral syndrome Close exposure to COVID-19 virus Contusion of face Pharyngitis Sinusitis Family History Mother Thyroid disorder Sister Thyroid disorder Social History (Updated 02/09/24 @ 15:44 by George Carson APRN) Smoking Status: Never smoker alcohol intake: never substance use type: denies use current occupational status: employed Travel in the last 8 weeks: None Have you lived/traveled outside [place] in past 30 days?: No Contact w/someone who lives/traveled outside US past 30 days?: No Exposure to someone with infectious disease in past 14 days?: No Do you have a fever (greater than 100.4 F or 38 C)?: Yes Have you tested positive for COVID-19: No Exposed to someone with COVID-19 in past 14 days?: No Do you have a sore throat?: Yes Do you have a cough?: Yes Do you have any weakness?: Yes Do you have any diarrhea?: Yes Are you experiencing any unusual bleeding?: No Do you have any muscle aches/pain?: Yes Do you have any abdominal pain?: Yes Are you experiencing loss of taste or smell?: No ROS Obtained: Yes All systems reviewed & no additional complaints except as documented Constitutional Constitutional: Denies chills, Denies fever(s) and Reports poor appetite ENT Ears, Nose, Mouth, and Throat: Denies dizziness and Denies sore throat Cardiovascular Cardiovascular: Denies dyspnea Respiratory Respiratory: Denies chest congestion, Denies cough and Denies dyspnea Gastrointestinal Gastrointestingal: Reports as per HPI; Denies abdominal pain Genitourinary Female Genitourinary: Denies difficulty voiding, Denies dysuria, Denies hematuria, Denies urinary frequency, Denies urinary incontinence, Denies urinary hesitancy and Denies urinary urgency Musculoskeletal Musculoskeletal: Denies arthralgias Integumentary/Breasts Skin/Breast: Denies rash Neurologic Neurologic: Denies dizziness Physical Exam General General appearance: alert and in no apparent distress Head Head exam: atraumatic and normocephalic Eye Eye exam: Present normal appearance, PERRL and EOMI ENT ENT exam: Present normal exam, normal oropharynx, mucous membranes moist, TM's normal bilaterally and normal external ear exam Neck Neck exam: Present normal inspection, full ROM and trachea midline; Absent tenderness, meningismus or lymphadenopathy Chest Chest inspection: Present normal inspection and symmetric chest wall rise; Absent tenderness, rash or abscess Respiratory Respiratory exam: Present normal lung sounds bilaterally; Absent respiratory distress, wheezes or stridor Cardiovascular Cardiovascular exam: Present regular rate and normal rhythm; Absent irregular rhythm, systolic murmur, diastolic murmur or JVD Abdominal Exam Abdominal exam: Present soft and hyperactive bowel sounds; Absent distention, tenderness, guarding, rebound, rigidity, psoas sign, obturator sign, heel tap sign, Fulton's sign, Rovsing's sign or tenderness at McBurney's Point Extremities Exam Extremities exam: Present normal inspection and full ROM; Absent tenderness Back Exam Back exam: Present normal inspection and full ROM; Absent tenderness, CVA tenderness (R) or CVA tenderness (L) Neurological Exam Neurological exam: Present alert, oriented X3 and CN II-XII intact Psychiatric Psychiatric exam: Present normal affect and normal mood Skin Skin exam: Present warm, dry, intact and normal color Lymphatic Lymphatic Findings: no adenopathy Medical Decision Making Medical Records Medical records reviewed: No I reviewed the patient's medical records. Screening: Per USPSTF and CDC recommendations, given the prevalence of disease in our region, it is our hospital?s policy to screen for HIV and viral Hepatitis for all patients aged 18 and over and those with ongoing risk factors. Fab Inquiry Pt receiving controlled substance: No Lab Data Lab results reviewed: Yes I reviewed the patient's lab results.
[2024-04-24 20:00] VITALS: BP 120/69; PULSE 85; RESP 20; TEMP 37; O2SAT 100; BMI 32.8
[2024-04-24 20:12] LABS: UTC Influenza A Antigen Negative (Negative); UTC Influenza B Antigen Negative (Negative)
[2024-04-24] MEDS: ONDANSETRON 4MG ODT 4 MG SL (20:18)
[2024-04-24 20:23] VITALS: BP 120/69; PULSE 85; RESP 20; TEMP 37
[2024-04-24 20:30] LABS: Coronavirus 19, PCR Not Detected (NotDetected); Influenza A, PCR Not Detected (NotDetected); Influenza B, PCR Not Detected (NotDetected)
== END 2024-04-24 20:27 | disposition home or self-care (01) ==
PROVIDERS: Emergency Provider Nurse Practitioner Family; PCP Internal Medicine
DX: K52.9 Noninfective gastroenteritis and colitis, unspecified (principal)
CPT/HCPCS: 87636; 87804; 99213; G0381; Q0162

== ENCOUNTER 2024-05-17 15:27 | Outpatient (CLI) | payer MEDICAID, SELFPAY ==
[2024-05-17 20:44] LABS: Coronavirus 19, PCR Not Detected (NotDetected); Human Rhinovirus Not Detected (NotDetected); Influenza A, PCR Not Detected (NotDetected); Influenza B, PCR Not Detected (NotDetected); Respiratory Syncytial Virus Not Detected (NotDetected)
== END 2024-05-17 23:59 | disposition home or self-care (01) ==
LOC: LAB.DROPOF 05-18 14:34
PROVIDERS: PCP Student in an Organized Health Care Education/Training Program; Visit Provider Student in an Organized Health Care Education/Training Program
DX: R50.9 Fever, unspecified (principal); R05.9 Cough, unspecified; J02.9 Acute pharyngitis, unspecified
CPT/HCPCS: 87631

== ENCOUNTER 2024-06-22 15:45 | Outpatient (CLI) | payer MEDICAID, SELFPAY ==
--- NOTE | 2024-06-22 15:30 | US_ITS ---
PROCEDURE INFORMATION: Exam: US Right Breast, Complete Exam date and time: 06/22/2024 3:54 PM Age: 28 years old Clinical indication: Lower-outer quadrant right breast possible palpable and pain TECHNIQUE: Imaging protocol: Complete ultrasound of all four quadrants of the right breast and the retroareolar regions, including ultrasound of the axilla when performed. COMPARISON: No relevant prior studies available. FINDINGS: ULTRASOUND: Breast ultrasound findings: Right 4 quadrants and retroareolar breast ultrasound and right axilla ultrasound Only normal glandular structures are present in the regions assessed No suspicious solid or cystic mass is present. No benign-appearing solid or cystic mass is present. No architectural distortion or shadowing is present. No axillary adenopathy is present. IMPRESSION: No sonographic evidence of malignancy. Annual mammographic screening is recommended unless otherwise clinically indicated. ASSESSMENT: BI-RADS category 1: Negative
== END 2024-06-22 23:59 | disposition home or self-care (01) ==
LOC: RAD 15:45
PROVIDERS: PCP Internal Medicine; Visit Provider Nurse Practitioner Obstetrics & Gynecology
DX: N64.4 Mastodynia (principal)
CPT/HCPCS: 76641

== ENCOUNTER 2024-10-19 17:30 | Emergency (ER) | payer MEDICAID, SELFPAY ==
--- OUTSIDE RECORDS SUMMARY | 2024-09-20 09:30 | XMS_ITS | Encounter Summary ---
Author Organization [facility] Address [address] [place] [address] Care Team Providers Care Galley Hand Name Role Phone Susanna Goldenew Dhruv WORRELL Primary Care Provider [phone] Reason for Visit * Reason Comments Consult * Consultation (Routine) - Closed Specialty Diagnoses / Procedures Referred By Contac t Referred To Contact General, Endocrine & Minimally Invasive Surgery / General Surgery Diagnoses Goiter Chris Chavira MD [facility] [address] Phone: tel: fax: Referral ID Status Reason Start Date Expiration Date V isits Requested Visits Authorized [id number] Closed Specialty Services Required 05/25/2024 11/24/2025 1 1 Encounter Details Date Type Department Care Team ([facility] Contact Info) Description 09/20/2024 9:30 AM EDT Consult Medical Office Building Surgical Specialties [address], [address] [place] [address] Nolan Medina MD [address] [facility] [address] [place] [address] Wesley's thyroiditis (Primary Dx); Goiter [...] week 09/20/2024 How often do you attend [facility] or [facility]? Never 09/20/2024 Do you belong to any clubs o r organizations such as shinto groups, unions, fraternal or athletic groups, or [...] and heating? Not hard at all 09/20/2024 [facility] [place] of Occupat ional Health - Occupational Stress [...] any time in the past 12 m [facility], were you homeless or living in a long-term (including now)? No 09/20/2024 Utilities Answer Date [...] file Travel History Travel Start Travel End [place] 10/01/2024 10/05/2024 documented as of this encounter [...] from the original note were not included. [id number] Having Thyroid Surgery You are having surgery [...] medicines you take. This includes prescription and xvut-oqt-qezlubd medicines. It includes aspirin and other blood [...] supplements. Last Reviewed Date: 2023 00:00:00 ?? [id number] [employer]. All rights reserved. This information is not intended as a substitute for professional medical care. Always follow your healthcare professional's instructions. * [facility] - Juan Rasmussen RN - 09/20/2024 12:14 PM EDT Images from the original note were not included. [id number] After Thyroid or Parathyroid Surgery - Dr. [...] the first few days. Most patients use ytwm-uyh-llsersc Tylenol (acetaminophen) and/or Advil (ibuprofen) for pain [...] (8 a.m.-4:30 p.m., Tuesday-Tuesday) orcall the surgeon change management consultant at . When to call and go to the ER Call the surgeon change management consultant and go directly to the Emergency Room [...] you feel it is an emergency, call [phone]. Call the surgeon change management consultant at . Follow up ?? You will [...] from the original note were not included. [id number] * Assessment & Plan Note - Mars [...] are permanently stored and available in the [facility] PACS system. Indication: multinodular goiter Prior thyroid [...] saw and evaluated the patient with the medical/CHIP BIN CONVEYOR TENDER/PA student. I discussed the case with the medical/CHIP BIN CONVEYOR TENDER/PA student and agree with the findings and [...] thyroid gland. FNA 06/03/23 left thyroid - Dyke II, benign. US today with diffusely enlarged and markedly heterogeneous thyroid gland consistent with active thyroiditis. We discussed thyroid disease and thyroidectomy, including risks and expected course. Total thyroidectomy Overnight observation Thank you, Nolan Medina MD, FACS ambulatory care nurse General, Endocrine & Metabolic Surgery documented in this encounter Plan of Treatment Upcoming Encounters Date Type Department Care Team (Late st Contact Info) Description 02/20/2025 8:00 AM [facility] Hospital Encounter [facility] Operating Room [address] [place] [address] Nolan Medina MD [address] [address] 02/20/2025 8:00 AM EST - 02/20/2025 11:45 AM [facility] Surgery [facility] Operating Room [address] [place] [address] Nolan Medina MD [address] [address] THYROIDECTOMY [[id number] (CPT )] 03/07/2025 3:30 PM EST Office Visit Medical Office Building Surgical Specialties [address], [address] [place] [address] Nolan Medina MD [address] [facility] [address] [place] [address] 04/15/2025 1:20 PM EST Office Visit [facility] [address], [address] [place] [address] Leydi Rojas MD [address] [place] [address] 125 [place] [id number] 05/31/2025 11:00 AM EDT [facility] End[facility] [address] [place] [address] Chris Chavira MD [address] [place] [address] Scheduled Procedures Name Priority Associated [...] documented as of this encounter Care Teams Galley Hand Relationship Specialty Start Date End Date Casimiro Golden DO [address] [place] [address] [place] [address] PCP - General 09/20/24 documented as of this encounter
--- OUTSIDE RECORDS SUMMARY | 2024-10-10 14:20 | XMS_ITS | Encounter Summary ---
Author Organization [facility] Address [address] [place] [address] Care Team Providers Care Senior Bi Architect Name Role Phone [place] Casimiro Dhruv WORRELL Primary Care Provider Reason for Referral * Consultation (Routine) - Authorized Specialty Diagnoses / Procedures Referred By Contac t Referred To Contact Diagnoses Hypothyroidism, unspecified type Leydi Rojas MD [address] [place] [address] Phone: tel: fax: Referral ID Status Reason Start Date Expiration Date V isits Requested Visits Authorized [id number] Authorized 10/10/2024 04/11/2026 1 1 Reason for Visit * Reason Comments Follow-up Encounter Details Date Type Department Care Team (Late st Contact Info) Description 10/10/2024 2:20 PM EDT Office Visit [facility] [address], [address] [place] [address] Leydi Rojas MD [address] [place] [address] Hypothyroidism, unspecified type (Primary Dx); Vitamin D deficiency; Iron deficiency; Thyroid nodule; Other fatigue Social History Tobacco Use Types Packs/Day Years [...] week 09/20/2024 How often do you attend chur or confucianism services? Never 09/20/2024 Do you belong to any clubs o r organizations such as restorationist groups, unions, fraternal or athletic groups, or [...] and heating? Not hard at all 09/20/2024 [facility] of Occupat ional Health - Occupational Stress [...] any time in the past 12 m [facility], were you homeless or living in a residential (including now)? No 09/20/2024 Utilities Answer Date Recorded In the past 12 months has th e [employer], gas, oil, or water company threatened to shut off services in your home? No 09/20/2024 Comments Unknown Sex and Gender Information Value Date Recorded Sex Assigned at Not on file Legal Sex Female 5:20 PM EDT Gender Identity Not on file Sexual Orientation Not on file Travel History Travel Start Travel End [place] 10/01/2024 10/05/2024 documented as of this encounter Last Filed Vital Signs Vital Sign Reading Time Taken Comments Blood Pressure 105/71 10/10/2024 2:27 PM EDT Pulse 87 10/10/2024 2:27 PM EDT Temperature 37.1 C (98.7 F) 10/10/2024 2:27 PM EDT Respiratory Rate - - Oxygen Saturation 99% 10/10/2024 2:27 PM EDT Inhaled Oxygen Concentration - - Weight 86.3 kg (190 lb 4.1 oz) 10/10/2024 2:27 P M EDT Height 160 cm (5' 3 ) 10/10/2024 2:27 PM EDT Body Mass Index 33.7 10/10/2024 2:27 PM EDT documented in this encounter Miscellaneous Notes * Patient Instructions - Leydi Rojas MD - 10/10/2024 2:20 PM EDT It was a pleasure meeting you today! Let us check thyroid levels today I will also check iron and vitamin D Please return to the clinic in 6 months * Progress Notes - Leydi Rojas MD - 10/10/2024 2:20 PM EDT Images from the original note were not included. Subjective Filomena Jones is a 28 y.o., female about here for follow up for hypothyroidism. The patient is accompanied by her who provided additional history. Interval History Last Visit:04.11.24 Since last visit seen by [facility] 05.25.2024 and referred to endocrine surgeon for consideration of lobectomy. Seen by endocrine surgery 09.20.2024 and scheduled for total thyroidectomy 02.20.2025 She reports that intermittently with certain food will get stuck and she will choke. She takes all 7 tablets of LT4 once weekly on Sundays; denied missed doses She reports that fatigue is improved Still not able to make sleep medicine She reports that having issues getting D3 from OTC; Not sure of the dose. She has been taking OTC iron daily. HYPOTHYROIDISM HPI: Diagnosed with abnormal TFT last year in setting of fatigue and hair loss. She reports initially on 25mcg and repots that it was increased 1 month ago to LT4 50 mcg daily. She reports that she takes it in AM and eats > 1 hour later. She is rx iron but does not take it. She reports insurance did not cover vitamin D supplement so did not start taking it. She denies biotin supplement. She reports that she is still fatigued and feels no improvement on her current dose of LT4. She states that she is always tired no matter how much she sleeps. states that she snores and sounds like cutting logs. She reports weight ranges from 160-200lb + cold intolerance Changes in hair: Yes; reports that she is still losing hair and when she is brushing or taking a shower. Changes in Bowel movements: Denied Mother in Law saw that she had lump in her throat which led to US done . This led to finding multiple thyroid nodules which led to biopsy of dominant L thyroid nodule whichwas benign per patient on 06.03.23 MENSTRUAL HISTORY: She has regular monthly menses Hormone replacement therapy: None Family History Mother - thyroid dysfunction Maternal Grandmother -thyroid dysfunction Tobacco: None EtOH: None Work: works as a overnight cashier Past Medical History: Diagnosis Date Allergic Asthma Hypothyroidism Thyroid nodule Vitamin D deficiency Past Surgical History: Procedure Laterality Date APPENDECTOMY Current Outpatient Medications: cholecalciferol (Vitamin D-3) 25 MCG (1000 UT) tablet, Take 1 tablet (1,000 Units) by mouth 1 (one)time each day., Disp: 90 tablet, Rfl: 1 Dulera 100-5 MCG/ACT inhaler, Inhale 2 puffs 2 (two) times a day., Disp: , Rfl: levothyroxine (Synthroid, Levoxyl) 75 MCG tablet, Take 1 tablet by mouth daily., Disp: 30 tablet, Rfl: 3 Allergies Allergen Reactions Peanut Allergen Powder-Dnfp Hives and Nausea Penicillins Hives and Itching Soybean Oil Hives and Rash Social History Tobacco Use Smoking status: Never Smokeless tobacco: Never Substance Use Topics Alcohol use: Never Drug use: Never Family History Problem Relation Name Age of Onset Thyroid disease Mother Carol Hobbs Thyroid disease Maternal Grandmother Karen david Review of Systems: See HPI Review of Systems Constitutional: Negative for fatigue and unexpected weight change. Respiratory: Negative for shortness of breath. Gastrointestinal: Negative for constipation, diarrhea, nausea and vomiting. Endocrine: Negative for cold intolerance. A complete ROS was performed and is otherwise negative in detail Objective Physical Exam: BP 105/71 (BP Location: Right arm, Patient Position: Sitting, BP Cuff Size: Adult) Pulse 87 Temp 37.1 ??C (98.7 ??F) (Skin) Ht 1.6 m (5' 3 ) Wt 86.3 kg (190 lb 4.1 oz) BMI 33.70 kg/m?? GEN:Sitting up comfortably, well appearing, non-Cushingoid EYES: sclera anicteric, extraocular motion grossly intact HENT: OP clear PULM: No increased work of breathing, completing full sentences, symmetric chest rise CV: Normal rate, regular rhythm EXT: Warm well perfused NEURO: A&Ox4. No dysarthria. Moving all extremities voluntarily SKIN: normal temperature/texture, no ecchymoses; normal pigmentation, PSYCH: normal mood and affect Date TSH FT4 TT4 T3U Ca 25D Old New 02.28.2023 14.3 2.20.24 3.34 (0.465-4.68) G 50 4.3.24 3.25 1.3 9.4 Ferritin 21 TSAT 9 (14-50%) Folate 13.7 B12 341 G 50 G 50 Ergo 50k weekly 1.22.25 11.5 0.9 15.2 TSA 10 Ferritin 20 G 50 7.23.25 5.68 0.9 24.3 TSAT 12 Ferritin 26 G 50 G 75 Thyroid US 05.24.2023 FNA 06.03.2023 at [facility] I have reviewed prior records. Assessment/Plan Diagnoses and all orders for this visit: Hypothyroidism, unspecified type Continue LT4 50mcg daily Check TFT's now to assess dose adequacy Multinodular Goiter 1.7cm left thyroid nodule s/p FNA 06.03.23 with benign pathology Seen by US clinic in ; did not recommend repeat FNA Referred to endocrine surgery as patient reported intermittent dysphagia Scheduled for lobectomy 02.20.25 Low TSAT Multifactorial as patient report h/o iron Low TSAT; taking PO iron daily Check iron studies and ferritin Vitamin D deficiency S/p ergo 50k weekly x12 weeks in Not taking OTC D3 as difficulty getting from pharmacy Check 25D now RTC in 6 months. Orders Placed This Encounter Procedures Ferritin, Serum Vitamin D 25 Hydroxy Iron & Total Iron Binding Capacity, Plasma (Includes Transferrin) Thyroid Stimulating Hormone, Plasma Free T4, Plasma Thyroid Stimulating Hormone, Plasma Free T4, Plasma Follow Up [facility] I have answered my patient's questions to the best of my ability and have encouraged her to call with any additional questions. Leydi Rojas MD Time Spent: I personally spent a total of 32 minutes on this encounter. This time includes face to face with patient, counseling and discussion and/or coordination of care. CC FYI PHYSICIANS documented in this encounter Plan of Treatment Upcoming Encounters Date Type Department Care Team (Late st Contact Info) Description 02/20/2025 8:00 AM [facility] Hospital Encounter [facility] Operating Room [address] [place] [address] Nolan Medina MD [address] [address] 02/20/2025 8:00 AM EST - 02/20/2025 11:45 AM EST Surgery [facility] Operating Room [address] [place] [address] Nolan Medina MD [address] [address] THYROIDECTOMY [[id number] (CPT )] 03/07/2025 3:30 PM EST Office Visit Medical Office Building Surgical Specialties [address] [address] [facility] [address], [address] [place] [address] Nolan Medina MD [address] [address] 04/15/2025 1:20 PM EST Office Visit [facility] [address] [facility] [address] [place] [address] Leydi Rojas MD [address] [facility] [address] [place] [address] 05/31/2025 11:00 AM EDT Office Visit [facility] [address] [place] [address] Chris Chavira MD [address] [place] [address] Scheduled Orders Name Type Priority Associated Diagnoses Orde r Schedule Thyroid Stimulating Hormone, Plasma Lab Routine Hypothyroidism, unspecified type Expected: 12/12/2024, Expires: 04/14/2026 Free T4, Plasma Lab Routine Hypothyroidism, unspecified type Expected: 12/12/2024, Expires: 04/14/2026 Scheduled Procedures Name Priority Associated Diagnoses Date/Ti me THYROIDECTOMY 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 8:00 AM EST Scheduled Referrals Name Type Priority Associated Diagnoses Orde r Schedule Follow Up [facility] Outpatient Referral Routine Hypothyroidism, unspecified type Expected: 04/12/2025, Expires: 04/13/2026 documented as of this encounter Goals Goal Patient Goal Type Associated Problems Recent Progress Patient-Stated? Author Autogenerat ed Goal Care Plan Autogenerated Problem No Brielle Nicole MD documented as of this encounter Results * Free T4, Plasma (10/10/2024 3:07 PM EDT) Free T4, Plasma 0.9 0.8 - 1.7 ng/dL 10/10/2024 5:55 PM EDT [facility] Blood Venous blood specimen / Unknown Venipuncture / Unknown 10/10/2024 3:07 PM EDT 10/10/2024 3:07 PM EDT Narrative [facility] - 10/10/2024 5:55 PM EDT Free T4 Trimester Specific Ranges 1st Trimester 0.9 - 1.50 ng/dL 2nd Trimester 0.7 - 1.40 ng/dL 3rd Trimester 0.7 - 1.24 ng/dL us Leydi Rojas MD LAB BLOOD ORDERABLES Final R esult [facility] [address] [place] [address] * (ABNORMAL) Thyroid Stimulating Hormone, Plasma (10/10/2024 3:07 PM EDT) Thyroid Stimulating Hormone, Plasma 5.68(H) 0.40 - 4.20 uIU/mL 10/10/2024 5:55 PM EDT [facility] Blood Venous blood specimen / Unknown Venipuncture / Unknown 10/10/2024 3:07 PM EDT 10/10/2024 3:07 PM EDT Narrative [facility] - 10/10/2024 5:55 PM EDT Trimester Specific Ranges TSH ( IU/mL) 1st Trimester 0.1 - 3.0 2nd Trimester 0.19 - 4.06 3rd Trimester 0.3 - 3.7 Leydi Rojas MD LAB BLOOD ORDERABLES Final R esult Performing Organization Address [facility] Co de Phone Number [facility] [address] [place] [address] * (ABNORMAL) Iron & Total Iron Binding Capacity, Plasma (Includes Transferrin) (10/10/2024 3:07 PM EDT) Pathologist [facility] Iron, Plasma 42 30 - 160 ug/dL 10/10/2024 5:58 PM EDT [facility] Transferrin, Plasma 283 200 - 360 mg/dL 10/10/2024 5:58 PM EDT [facility] Total Iron Binding Capacity, Plasma 354 240 - 450 ug/mL 10/10/2024 5:58 PM EDT [facility] Transferrin Saturation 12(L) 14 - 50 % 10/10/2024 5:58 PM EDT [facility] Blood Venous blood specimen / Unknown Venipuncture / Unknown 10/10/2024 3:07 PM EDT 10/10/2024 3:07 PM EDT Leydi Rojas MD LAB BLOOD ORDERABLES Final R esult [facility] [address] [place] [address] * Vitamin D 25 Hydroxy (10/10/2024 3:07 PM EDT) Vitamin D 25 Hydroxy 24.3 20.0 - 80.0 ng/mL 10/10/2024 7:29 PM EDT [facility] Blood Venous blood specimen / Unknown Venipuncture / Unknown 10/10/2024 3:07 PM EDT 10/10/2024 3:07 PM EDT Narrative [facility] - 10/10/2024 7:29 PM EDT Testing performed on [employer], standardized against NIST SRM 2972. When testing samples from patients whose predominant form of vitamin D is vitamin D2, such as patients receiving vitamin D2 supplementation, results that are subtherapeutic should be confirmed with another method, such as LC-MS/MS, before being used for patient management. Vitamin D, 25-Hydroxy reference range, age 18 years and up: Deficiency: <12 ng/mL Insufficiency: 12 to 19 ng/mL Sufficiency: 20 to 80 ng/mL Possible toxicity: >100 ng/mL us Leydi Rojas MD LAB BLOOD ORDERABLES Final R esult Performing Organization Address [facility] Co de Phone Number [facility] [address] [place] [address] * Ferritin, Serum (10/10/2024 3:07 PM EDT) Ferritin, Serum 26 13 - 150 ng/mL 10/10/2024 6:04 PM EDT [facility] Blood Venous blood specimen / Unknown Venipuncture / Unknown 10/10/2024 3:07 PM EDT 10/10/2024 3:07 PM EDT us Leydi Rojas MD LAB BLOOD ORDERABLES Final R esult Performing Organization Address [facility]/ZIP Co de Phone Number [facility] [address] [place] [address] documented in this encounter Visit Diagnoses Diagnosis Carleen's thyroiditis- Primary Chronic lymphocytic thyroiditis Hypothyroidism, unspecified type- Primary Vitamin D deficiency Iron deficiency Disorders of iron metabolism Thyroid nodule Nontoxic uninodular goiter Other fatigue Carleen's thyroiditis Chronic lymphocytic thyroiditis documented in this encounter Additional Health Concerns Active Problems Noted Date Diagnosed Date Autogenerated Problem 09/20/2024 Assessment Noted Time A fall risk assessment has been complete d for the patient 10/10/2024 2:26 PM EDT A Body Mass Index follow-up plan has been documented for the patient 10/14/2024 7:23 PM EDT documented as of this encounter Care Teams Senior Bi Architect Relationship Specialty Start Date End Date Casimiro Golden DO [address] [place] [address] [place] [address] PCP - General 09/20/24 documented as of this encounter
[2024-10-19 17:50] VITALS: BP 111/66; PULSE 86; RESP 14; TEMP 36.7; O2SAT 99; BMI 32.4
--- OUTSIDE RECORDS SUMMARY | 2024-10-19 17:50 | XMS_ITS | Encounter Summary ---
Author Organization Healthcare Address [address] [place] [address] Care Team Providers Care Internal Consultant Name Role Phone Casimiro Golden Dhruv WORRELL Primary Care Provider [phone] Encounter Details Date Type Department Care Team (Latest Contact Info) Description 09/20/2024 Travel Social History Tobacco Use Types Packs/Day Years [...] week 09/20/2024 How often do you attend [facility] or latter-day services? Never 09/20/2024 Do you belong to any clubs o r organizations such as evangelical groups, unions, fraternal or athletic groups, or [...] and heating? Not hard at all 09/20/2024 [facility] of Occupat ional Health - Occupational Stress [...] any time in the past [address] [facility], were you homeless or living in a [...] file Travel History Travel Start Travel End [place] 10/01/2024 10/05/2024 documented as of this encounter Functional Status * AUDIT-C Score Answer Date of Assessment Author 0 09/20/2024 10:55 AM EDT Jose Covarrubias * Question Answer Date of Assessment Author Q1: How often do you have a drink containing alcohol? Never 09/20/2024 10:55 AM DANITZAT Jose Covarrubias Q2: How many drinks containing alcohol do you have on a typical day when you are drinking? Patient does not drink 09/20/2024 10:55 AM Jose Pichardo Q3: How often do you have six or more drinks on one occasion? Never 09/20/2024 10:55 AM EDT Jose Covarrubias documented as of this encounter Plan of Treatment Upcoming Encounters Date Type Department Care Team (Late st Contact Info) Description 02/20/2025 8:00 AM [facility] Hospital Encounter [facility] S Operating Room [address] [place] [address] Nolan Medina MD [address] [address] 02/20/2025 8:00 AM EST - 02/20/2025 11:45 AM EST Surgery [facility] Operating Room [address] [place] [address] Nolan Medina MD [address] [facility] [address] [place] [address] THYROIDECTOMY [[id number] (CPT )] 03/07/2025 3:30 PM EST Office Visit Medical Office Building Surgical Specialties [address] [place] [address] Nolan Medina MD [address] [facility] [address] [place] [address] 04/15/2025 1:20 PM EST Office Visit [facility] [address], [address] [place] [address] Leydi Rojas MD [address] [facility] [address] [place] [address] 05/31/2025 11:00 AM EDT Office Visit [facility] Endocrinology [address] [place] [address] Chris Chavira MD [address] [facility] [address] [place] [address] Scheduled Procedures Name Priority Associated Diagnoses Date/Ti me THYROIDECTOMY 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 8:00 AM EST documented as of this encounter Goals Goal Patient Goal Type Associated Problems Recent Progress Patient-Stated? Author Autogenerat ed Goal Care Plan Autogenerated Problem No Brielle Nicole MD documented as of this encounter Visit Diagnoses Not on filedocumented in this encounter Additional Health Concerns Active Problems Noted Date Diagnosed Date Autogenerated Problem 09/20/2024 Assessment Noted Time A fall risk assessment has been complete d for the patient 09/20/2024 10:58 AM EDT A Body Mass Index follow-up plan has been documented for the patient 09/20/2024 12:14 PM EDT documented as of this encounter Care Teams Internal Consultant Relationship Specialty Start Date End Date Casimiro Golden, DO [address] [place] [address] [place], [place] [address] PCP - General 09/20/24 documented as of this encounter
--- OUTSIDE RECORDS SUMMARY | 2024-10-19 17:50 | XMS_ITS | Encounter Summary ---
Author Organization Healthcare Address [address] [place] [address] Care Team Providers Care Varnishing Unit Tool Setter Name Role Phone Nellie Claudio Primary Care Provider [phone] Casimiro Golden DO Primary Care Provider Encounter Details Date Type Department Care Team (Late Contact Info) Description 05/25/2024 Orders Only External Location [address] [place] [address] Provider, External Social History Tobacco Use Types Packs/Day Years Used Date Smoking Tobacco: Never Smokeless Tobacco: Never Alcohol Use Standard Drinks/Week Comments Never 0 (1 standard drink = 0.6 oz pur e alcohol) PHQ-2 Answer Date Recorded Patient Health Questionnaire-2 Score 0 05/25/2024 Comments Unknown Sex and Gender Information Value Date Recorded Sex Assigned at Not on file Legal Sex Female 5:20 PM EDT Gender Identity Not on file Sexual Orientation Not on file Travel History Travel Start Travel End [place] 10/01/2024 10/05/2024 documented as of this encounter Functional Status * Over the past 2 weeks, how often have you been bothered by any of the following problems? Question Answer Date of Assessment Author Little interest or pleasure in doing things Not at all 05/25/2024 10:52 AM EST [facility] Feeling down, depressed, or hopeless Not at all 05/25/2024 10:52 AM EST [facility] Patient Health Questionnaire -2 Score 0 05/25/2024 10:52 AM EST [facility] documented as of this encounter Plan of Treatment Upcoming Encounters Date Type Department Care Team (Late Contact Info) Description 02/20/2025 8:00 AM EST Hospital Encounter [facility] Operating Room [address] [place] [address] Nolan Medina MD [address] [address] 02/20/2025 8:00 AM EST - 02/20/2025 11:45 AM EST Surgery [facility] Operating Room [address] [place] [address] Nolan Medina MD [address] [address] THYROIDECTOMY [[id number] (CPT )] 03/07/2025 3:30 PM EST Office Visit Medical Office Building Surgical Specialties [address] [facility] [address] [place] [address] Nolan Medina MD [address] [address] 04/15/2025 1:20 PM EST Office Visit [facility] [address] [facility] [address] [place] [address] Leydi Rojas MD [address] [address] 05/31/2025 11:00 AM EDT Office Visit [facility] Endocrinology [address] [place] [address] Chris Chavira MD [address] [address] Scheduled Procedures Name Priority Associated Diagnoses Date/Ti me THYROIDECTOMY 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 8:00 AM EST documented as of this encounter Procedures Procedure Name Priority Date/Time Associated Diagnosis Comments POC ULTRASOUND 05/25/2024 documented in this encounter Results * POC Imaging (05/25/2024) Anatomical Region Laterality Modality Pelvis Other 05/25/2024 us External Provider IMG POINT OF CARE ULTRASOUND F inal Result documented in this encounter Visit Diagnoses Not on filedocumented in this encounter Additional Health Concerns Assessment Noted Time A fall risk assessment has been complete d for the patient 04/11/2024 3:29 PM EST A Body Mass Index follow-up plan has been documented for the patient 05/25/2024 11:28 AM EST documented as of this encounter Care Teams Varnishing Unit Tool Setter Relationship Specialty Start Date End Date Nellie Claudio PA [address] [place] [address] PCP - General 06/16/23 09/19/24 Casimiro Golden DO [address] [facility] [address] [place] [address] PCP - General 09/20/24 documented as of this encounter
--- OUTSIDE RECORDS SUMMARY | 2024-10-19 17:50 | XMS_ITS | Encounter Summary ---
Author Organization Healthcare Address [address] [place] [address] Care Team Providers Care Port Warden Name Role Phone ChicoCasimiro Dhruv WORRELL Primary Care Provider [phone] Encounter Details Date Type Department Care Team (Late st Contact Info) Description 10/11/2024 Results Follow-Up [facility] Endocrinology [address] [place] [address] Leydi Rojas MD [address] [place] [address] Social History Tobacco Use Types Packs/Day Years [...] 09/20/2024 How often do you attend chur ch or sabianist services? Never 09/20/2024 Do you belong to any clubs o r organizations such as zoroastrianism groups, unions, fraternal or athletic groups, or [...] and heating? Not hard at all 09/20/2024 [facility] of Occupat ional Health - Occupational Stress [...] any time in the past 12 m [facility], were you homeless or living in [...] file Travel History Travel Start Travel End [place] 10/01/2024 10/05/2024 documented as of this encounter Plan of Treatment Upcoming Encounters Date Type Department Care Team (Late st Contact Info) Description 02/20/2025 8:00 AM EST Hospital Encounter [facility] Operating Room [address] [place] [address] Nolan Medina MD [address] [address] 02/20/2025 8:00 AM EST - 02/20/2025 11:45 AM EST Surgery [facility] Operating Room [address] [place] [address] Nolan Medina MD [address] [address] THYROIDECTOMY [[id number] (CPT )] 03/07/2025 3:30 PM EST Office Visit Medical Office Building Surgical Specialties [address] [facility], [address] [place] [address] Nolan Medina MD [address] [facility] [address] [place] [address] 04/15/2025 1:20 PM EST Office Visit [facility] [address], [address] [place] [address] Leydi Rojas MD [address] [facility] [address] [place] [address] 05/31/2025 11:00 AM EDT Office Visit [facility] Endocrinology [address] [place] [address] Chris Chavira MD [address] [facility] [address] [place] [address] Scheduled Procedures Name Priority Associated [...] documented as of this encounter Care Teams Port Warden Relationship Specialty Start Date End Date Casimiro Golden DO [address] [place] [address] [place] [address] PCP - General 09/20/24 documented as of this encounter
--- OUTSIDE RECORDS SUMMARY | 2024-10-19 17:50 | XMS_ITS | Encounter Summary ---
Author Organization Healthcare Address [address] [place] [address] Care Team Providers Care Juvenile Officer Name Role Phone Casimiro Golden Dhruv WORRELL Primary Care Provider [phone] Encounter Details Date Type Department Care Team (Latest Contact Info) Description 10/10/2024 Travel Social History Tobacco Use Types Packs/Day [...] week 09/20/2024 How often do you attend [facility] or uatsdin services? Never 09/20/2024 Do you belong to any clubs o r organizations such as mosque groups, unions, fraternal or athletic groups, or [...] and heating? Not hard at all 09/20/2024 [facility] of Occupat ional Health - Occupational [...] any time in the past 12 m [facility], were you homeless or living in a jail (including now)? No 09/20/2024 Utilities Answer Date [...] Upcoming Encounters Date Type Department Care Team ([facility] Contact Info) Description 02/20/2025 8:00 AM [facility] Hospital Encounter [facility] S Operating Room [address] [place] [address] Nolan Medina MD [address] [address] 02/20/2025 8:00 AM EST - 02/20/2025 11:45 AM EST Surgery [facility] Operating Room [address] [place] [address] Nolan Medina MD [address] [address] THYROIDECTOMY [[id number] (CPT )] 03/07/2025 3:30 PM EST Office Visit Medical Office Building Surgical Specialties [address] [facility], [address] [place] [address] Nolan Medina MD [address] [address] 04/15/2025 1:20 PM EST Office Visit [facility] [address], [address] [place] [address] Leydi Rojas MD [address] [place] [address] 05/31/2025 11:00 AM EDT Office Visit [facility] Endocrinology [address] [place] [address] Chris Chavira MD [address] [place] [address] Scheduled Procedures Name Priority Associated [...] documented as of this encounter Care Teams Juvenile Officer Relationship Specialty Start Date End Date Casimiro Golden DO [address] [place] [address] PCP - General 09/20/24 documented as of this encounter
--- OUTSIDE RECORDS SUMMARY | 2024-10-19 17:50 | XMS_ITS | Clinical Summary ---
Author Organization [facility] Address [address] [place] [address] Care Team Providers Care Space Control Supervisor Name Role Phone Casimiro Golden Dhruv WORRELL Primary Care Provider [phone] Allergies Active Allergy Reactions Criticality Noted Date Comments Peanut Allergen Powder-Dnfp Hives,Nausea Medium 2023 Penicillins Hives,Itching Medium 06/22/2023 Soybean Oil Hives,Rash Medium 06/22/2023 Medications Dulera 100-5 MCG/ACT inhaler Inhale 2 puffs 2 (two) times a day. 4 Active cholecalciferol (Vitamin D-3) 25 MCG (1000 UT) tabletIndicatio ns:Vitamin D deficiency Take 1 tablet (1,000 Units) by mouth 1 (one) time each day. 90 tablet 1 5 Active levothyroxine (Synthroid, Levoxyl) 75 MCG tabletIndicatio ns:Hypothyroidi sm, unspecified type Take 1 tablet by mouth daily. 30 tablet 3 5 Active levothyroxine (Synthroid, Levoxyl) 50 MCG tabletIndicatio ns:Hypothyroidi sm, unspecified type Take 1 tablet (50 mcg) by mouth 1 (one) time each day. 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 Assessment & Plan (09/20/2024 4:28 PM EDT): Orders: Case Request Operating Room: THYROIDECTOMY; Standing Diarrhea, unspecified 07/11/2024 Nausea with vomiting, unspecified 07/11/2024 Mastodynia 06/22/2024 Acquired absence of other sp ecified parts of digestive tract 05/25/2024 Nontoxic goiter, unspecified 05/25/2024 Hypothyroidism, unspecified 05/25/2024 Acute upper respiratory infection, unspecified 0 05/17/2024 Fever, unspecified 05/17/2024 Nasal congestion 05/17/2024 Other fatigue 05/17/2024 Noninfective gastroenteritis and colitis, unspec ified 04/24/2024 Iron deficiency 04/11/2024 Other hypersomnia 04/11/2024 Vitamin D deficiency, unspecified 04/11/2024 Other synovitis and tenosynovitis, multiple site s 02/05/2024 Pain in left hand 02/05/2024 Pain in right hand 02/05/2024 Other muscle spasm 12/07/2023 Cervicalgia 12/07/2023 Athyroidism (acquired) 06/22/2023 Mechanical entropion of unspecified eye, unspeci fied eyelid 05/11/2023 Regular astigmatism, bilateral 05/11/2023 COVID-19 11/06/2022 Headache, unspecified 11/06/2022 Acute sinusitis, unspecified 11/03/2022 Acute pharyngitis, unspecified 11/03/2022 Other malaise 11/03/2022 Unspecified abdominal pain 08/06/2022 Encounters Date Type Department Care Team Description 10/11/2024 Telephone [facility] [address], [address] [place] [address] Kristan Vazquez RN 10/11/2024 Results Follow-Up [facility] Endocrinology [address] [place] [phone] Leydi Rojas MD 10/10/2024 2:20 PM EDT Office Visit [facility] [address], [address] [place] [address] Leydi Rojas MD Hypothyroidism, unspecified type (Primary Dx); Vitamin D deficiency; Iron deficiency; Thyroid nodule; Other fatigue 10/10/2024 Travel 09/20/2024 9:30 AM EDT Consult Medical Office Building Surgical Specialties [address] [facility], [address] [place] [phone] Nolan Medina MD Carleen's thyroiditis (Primary Dx); Goiter 09/20/2024 Travel 09/19/2024 Abstract Medical Office Building Surgical Specialties [address] [facility], [address] [place] [id number] Carson Coombs from Last 3 Months Family History Medical History Relation Name Comments Thyroid disease Maternal Grandmother Karen david Thyroid disease Mother Caorl Hobbs Relation Name Status Comments Maternal Grandmother Karen david Alive Mother Carol Hobbs Social History Tobacco Use Types Packs/Day Years [...] often do you attend chur ch or bahai services? Never 09/20/2024 Do you belong to any clubs o r organizations such as caodaism groups, unions, fraternal or athletic groups, or [...] and heating? Not hard at all 09/20/2024 [facility] - [...] any time in the past 12 m [facility], were you homeless or living in a longterm (including now)? No 09/20/2024 Utilities Answer Date Recorded In the past 12 months has e electric, gas, oil, or water company threatened to shut off services in your home? No 09/20/2024 Comments Unknown Sex and Gender Information Value Date Recorded Sex Assigned at Not on file Legal Sex Female 5:20 PM EDT Gender Identity Not on file Sexual Orientation Not on file Travel History Travel Start Travel End [place] 10/01/2024 10/05/2024 Last Filed Vital Signs Vital Sign Reading Time Taken Comments Blood Pressure 105/71 10/10/2024 2:27 PM EDT Pulse 87 10/10/2024 2:27 PM EDT Temperature 37.1 C (98.7 F) 10/10/2024 2:27 PM EDT Respiratory Rate 18 09/20/2024 10:55 AM EDT Oxygen Saturation 99% 10/10/2024 2:27 PM EDT Inhaled Oxygen Concentration - - Weight 86.3 kg (190 lb 4.1 oz) 10/10/2024 2:27 P M EDT Height 160 cm (5' 3 ) 10/10/2024 2:27 PM EDT Body Mass Index 33.7 10/10/2024 2:27 PM EDT Plan of Treatment Upcoming Encounters Date Type Department Care Team (Late st Contact Info) Description 02/20/2025 8:00 AM [facility] Hospital Encounter [facility] S Operating Room [address] [place] [address] Nolan Medina MD [address] [address] 02/20/2025 8:00 AM EST - 02/20/2025 11:45 AM EST Surgery [facility] S Operating Room [address] [place] [address] Nolan Medina MD [address] [address] THYROIDECTOMY [[id number] (CPT )] 03/07/2025 3:30 PM EST Office Visit Medical Office Building [facility] [address] , [address] [place] [address] [facility] MD [address] [facility] [address] [place] [address] 04/15/2025 1:20 PM EST Office Visit [facility] [address], [address] [place] [address] Leydi Rojas MD [address] [facility] [address] [place] [address] 05/31/2025 11:00 AM EDT Office Visit [facility] Endocrinology [address] [place] [address] Chris Chavira MD [address] [place] [address] Scheduled Procedures Name Priority Associated Diagnoses Date/Ti me THYROIDECTOMY 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 8:00 AM EST Health Maintenance Due Date Last Done Comments [facility]-HIV Screening 1995 [facility]-Hepatitis C Screening 1995 [facility]-Infant/Child/Adol SDOH Screenings 1995 [facility]-Varicella Vaccines (1 of 2 - 13+ 2-dose series) 11/29/2008 HPV Vaccines (1 - 3-dose series) 11/29/2010 [facility]-DTaP,Tdap,and Td Vaccines (1 - Tdap) 11/29/2014 [facility]-Hepatitis B Vaccines (1 of 3 - 19+ 3-dose series) 11/29/2014 [facility]-Pap Smear 11/29/2016 [id number] Vaccine (3 - Pfizer risk series) 06/07/2020 05/10/2020, 04/19/2020 [facility]-Influenza Vaccine (#1) 2024 [facility]- SDOH Screenings 03/23/2025 [facility]-Adult SDOH Screenings 03/23/2025 09/20/2024 [facility]-Depression Screening 05/25/2025 05/25/2024 [facility]-Zoster Vaccines (1 of 2) 11/29/2045 [facility]-Obesity Intervention Completed 025, 09/20/2024, 09/20/2024, Additional history exists [facility]-HIB Vaccines Aged Out No longer e ligible based on patient's age to complete this topic [facility]-Hepatitis A Vaccines Aged Out No longer eligible based on patient's age to complete this topic [facility]-IPV Vaccines Aged Out No longer e ligible based on patient's age to complete this topic [facility]-Pneumococcal Vaccine: Pediatrics (0 to 5 Years) and At-Risk Patients (6 to 49 Years) Aged Out No longer eligible based on patient's age to complete this topic [facility]-Rotavirus Vaccines Aged Out No lo nger eligible based on patient's age to complete this topic Goals Goal Patient Goal Type Associated Problems Recent Progress Patient-Stated? Author Autogenerat ed Goal Care Plan Autogenerated Problem No Brielle Nicole MD Procedures Procedure Name Priority Date/Time Associated Diagnosis Comments FERRITIN, SERUM Routine 10/10/2024 3:07 PM EDT Iron deficiency VITAMIN D 25 HYDROXY Routine 10/10/2024 3:07 PM EDT Vitamin D deficiency IRON & TOTAL IRON BINDING CAPACITY, PLASMA (INCLUDES TRANSFERRIN) Routine 10/10/2024 3:07 PM EDT Iron deficiency TSH Routine 10/10/2024 3:07 PM EDT Hypothyroidism, unspecified type FREE T4, PLASMA Routine 10/10/2024 3:07 PM EDT Hypothyroidism, unspecified type from Last 3 Months Results * (ABNORMAL) Iron & Total Iron Binding Capacity, Plasma (Includes Transferrin) (10/10/2024 3:07 PM EDT) Iron, Plasma 42 30 - 160 ug/dL 10/10/2024 5:58 PM EDT [facility] Transferrin, Plasma 283 200 - 360 mg/dL 10/10/2024 5:58 PM EDT [facility] Total Iron Binding Capacity, Plasma 354 240 - 450 ug/mL 10/10/2024 5:58 PM EDT [facility] Transferrin Saturation 12(L) 14 - 50 % 10/10/2024 5:58 PM EDT [facility] Blood Venous blood specimen / Unknown Venipuncture / Unknown 10/10/2024 3:07 PM EDT 10/10/2024 3:07 PM EDT us Leydi Rojas MD LAB BLOOD ORDERABLES Final R esult Performing Organization Address [facility]/ZIP Co de Phone Number [facility] [address] [place] [address] * Vitamin D 25 Hydroxy (10/10/2024 3:07 PM EDT) Pathologist [facility] Vitamin D 25 Hydroxy 24.3 20.0 - 80.0 ng/mL 10/10/2024 7:29 PM EDT [facility] Blood Venous blood specimen / Unknown Venipuncture / Unknown 10/10/2024 3:07 PM EDT 10/10/2024 3:07 PM EDT Narrative [facility] - 10/10/2024 7:29 PM EDT Testing performed on [employer], standardized against NIST SRM 2972. When testing [...] R esult Performing Organization Address [facility]/ZIP Co de Phone Number [facility] [address] [place] [address] * (ABNORMAL) Thyroid Stimulating Hormone, Plasma (10/10/2024 3:07 PM EDT) Thyroid Stimulating Hormone, Plasma 5.68(H) 0.40 - 4.20 uIU/mL 10/10/2024 5:55 PM EDT [facility] Blood Venous blood specimen / Unknown Venipuncture / Unknown 10/10/2024 3:07 PM EDT 10/10/2024 3:07 PM EDT Narrative [facility] - 10/10/2024 5:55 PM EDT Trimester Specific Ranges TSH ( IU/mL) 1st Trimester 0.1 - 3.0 2nd Trimester 0.19 - 4.06 3rd Trimester 0.3 - 3.7 Leydi Rojas MD LAB BLOOD ORDERABLES Final R [facility] Performing Organization Address City/[facility]/ZIP Co de Phone Number [facility] [address] [place] [address] * Free T4, Plasma (10/10/2024 3:07 PM EDT) Free T4, Plasma 0.9 0.8 - 1.7 ng/dL 10/10/2024 5:55 PM EDT [facility] Blood Venous blood specimen / Unknown Venipuncture / Unknown 10/10/2024 3:07 PM EDT 10/10/2024 3:07 PM EDT Narrative [facility] - 10/10/2024 5:55 PM EDT Free T4 Trimester Specific Ranges 1st Trimester 0.9 - 1.50 ng/dL 2nd Trimester 0.7 - 1.40 ng/dL 3rd Trimester 0.7 - 1.24 ng/dL Leydi Rojas MD LAB BLOOD ORDERABLES Final R esult [facility] [address] [place] [address] * Ferritin, Serum (10/10/2024 3:07 PM EDT) Ferritin, Serum 26 13 - 150 ng/mL 10/10/2024 6:04 PM EDT [facility] Blood Venous blood specimen / Unknown Venipuncture / Unknown 10/10/2024 3:07 PM EDT 10/10/2024 3:07 PM EDT Leydi Rojas MD LAB BLOOD ORDERABLES Final R esult [facility] [address] [place] [address] from Last 3 Months Additional Health Concerns Active Problems Noted Date Diagnosed Date Autogenerated Problem 09/20/2024 Insurance [employer] Care Teams Space Control Supervisor Relationship Specialty Start Date End Date Casimiro Golden DO [address] [place] [address] [place] [address] PCP - General 09/20/24
--- OUTSIDE RECORDS SUMMARY | 2024-10-19 17:50 | XMS_ITS | Encounter Summary ---
Author Organization Healthcare Address [address] [place] [address] Care Team Providers Care Technician Semiconductor Development Name Role Phone Nellie Claudio Primary Care Provider [phone] Encounter Details Date Type Department Care Team (Late st Contact Info) Description 09/19/2024 Abstract Medical Office Building Surgical Specialties [address] [facility] [address], [address] [place] [address] Carson Coombs Social History Tobacco Use Types Packs/Day Years [...] often do you attend chur ch or temple services? Never 09/20/2024 Do you belong to any clubs o r organizations such as mu-ism groups, unions, fraternal or athletic groups, or [...] and heating? Not hard at all 09/20/2024 [facility] Occupat ional Health - Occupational Stress [...] any time in the past 12 m [facility], were you homeless or living in a fci (including now)? No 09/20/2024 Utilities Answer Date [...] file Travel History Travel Start Travel End [place] 10/01/2024 10/05/2024 documented as of this encounter Plan of Treatment Upcoming Encounters Date Type Department Care Team (Late st Contact Info) Description 02/20/2025 8:00 AM EST Hospital Encounter [facility] S Operating Room [address] [place] [address] Nolan Medina MD [address] [phone] 02/20/2025 8:00 AM EST - 02/20/2025 11:45 AM EST Surgery [facility] Operating Room [address] [place] [address] Nolan Medina MD [address] [address] THYROIDECTOMY [[id number] (CPT )] 03/07/2025 3:30 PM EST Office Visit Medical Office Building Surgical Specialties [address] [facility], [address] [place] [address] Nolan Medina MD [address] [address] 04/15/2025 1:20 PM EST Office Visit [facility] [address] [place] [address] Leydi Rojas MD [address] [place] [address] 05/31/2025 11:00 AM EDT Office Visit [facility] Endocrinology [address] [place] [address] Chris Chavira MD [address] [place] [address] Scheduled Procedures Name Priority Associated Diagnoses Date/Ti me THYROIDECTOMY 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
--- OUTSIDE RECORDS SUMMARY | 2024-10-19 17:50 | XMS_ITS | Encounter Summary ---
Author Organization Healthcare Address [address] [place] [address] Care Team Providers Care Drapery Inspector Name Role Phone Casimiro Golden DO Primary Care Provider [phone] Encounter Details Date Type Department Care Team (Late st Contact Info) Description 10/11/2024 Telephone [facility] [address], [address] [place] [address] Kristan Vazquez RN [facility] 10-T1 Social History Tobacco Use Types Packs/Day Years [...] often do you attend chur ch or rastafarian services? Never 09/20/2024 Do you belong to any clubs o r organizations such as restoration groups, unions, fraternal or athletic groups, or [...] and heating? Not hard at all 09/20/2024 [facility] - [...] any time in the past 12 m [facility], were you homeless or living in a [place] health care facility (including now)? No 09/20/2024 Utilities Answer Date [...] file Travel History Travel Start Travel End [place] 10/01/2024 10/05/2024 documented as of this encounter Miscellaneous Notes * Telephone Encounter - Kristan Vazquez, RN - 10/11/2024 4:18 PM EDT Lab slips mailed to pt per Dr. Rojas request. documented in this encounter Plan of Treatment Upcoming Encounters Date Type Department Care Team (Late st Contact Info) Description 02/20/2025 8:00 AM [facility] S Operating Room [address] [place] [address] Nolan Medina MD [address] [address] 02/20/2025 8:00 AM EST - 02/20/2025 11:45 AM [facility] S Operating Room [address] [place] [address] Nolan Medina MD [address] [address] THYROIDECTOMY [[id number] (CPT )] 03/07/2025 3:30 PM EST Office Visit Medical Office Building Surgical Specialties [address] , [address] [place] [address] Nolan Medina MD [address] [facility] [address] [place] [address] 04/15/2025 1:20 PM EST Office Visit [facility] [address], [address] [place] [address] Leydi Rojas MD [address] [facility] [place] [facility] [address] [place] [address] 05/31/2025 11:00 AM EDT Office Visit [facility] Endocrinology [address] [place] [address] Chris Chavira MD [address] [facility] [place] [facility] [address] [place] [address] Scheduled Procedures Name Priority Associated [...] documented as of this encounter Care Teams Drapery Inspector Relationship Specialty Start Date End Date Casimiro Golden, [address] [place] [address] [place] [address] PCP - General 09/20/24 documented as of this encounter
[2024-10-19 18:34] LABS: Hematocrit 33.2 % (37.0-47.0); Hemoglobin 10.8 g/dL (12.2-16.2); Immature Granulocytes % 0.6 %; Mean Corpuscular HGB Conc 32.5 g/dL (31.8-35.4); Mean Corpuscular Hemoglobin 26.5 pg (27.0-31.2); Mean Corpuscular Volume 81.4 fl (81-99); Nucleated Red Blood Cells % 0 %; Platelet Count 347 K/mm3 (142-424); Red Blood Count 4.08 M/mm3 (4.20-5.40); Red Cell Distribution Width-SD 41.7 fL; White Blood Count 12.0 K/mm3 (4.8-10.8)
[2024-10-19 18:44] LABS: Alanine Aminotransferase 19 U/L (12-78); Albumin Level 4.4 g/dl (3.5-5.0); Albumin/Globulin Ratio 1.3 (1.1-1.8); Alkaline Phosphatase 77 U/L (38-126); Anion Gap 11.6 mEq/L (5-15); Aspartate Amino Transferase 28 U/L (14-36); Bilirubin,Total 0.4 mg/dl (0.2-1.3); Blood Urea Nitrogen 15 mg/dl (7-17); Calcium 9.2 mg/dl (8.4-10.2); Carbon Dioxide 25 mmol/L (22.0-30.0); Chloride 106 mmol/L (98-107); Creatinine Clearance Estimated 137 mL/min (50-200); Creatinine,Serum 0.80 mg/dl (0.52-1.04); Estimated Glomerular Filt Rate 85 ml/min (>60); GFR (African American) 103 ML/MIN (>60); Globulin 3.3 g/dL (1.3-3.2); Glucose 105 mg/dl (74-100); Potassium 3.6 mmoL/L (3.5-5.1); Sodium 139 mmol/L (136-145); Total Protein,Serum 7.7 g/dl (6.3-8.2)
[2024-10-19 19:00] LABS: D-Dimer 0.73 ug/mL (0.0-0.5)
[2024-10-19 19:05] VITALS: BP 115/69; PULSE 74; O2SAT 99
--- NOTE | 2024-10-19 19:15 | ED_ITS ---
<Statement entered by John Negrete MD - 10/20/24 21:07> I was consulted by the PRAVEENA, and we discussed the complexity of the problems being addressed. I approved the treatment and management plan for this patient's care in the emergency department, thus performing a substantive portion of the medical decision making. John Negrete MD, MAX, FACEP Discharge Plan Disposition Patient Disposition: Home, Self-Care Prescriptions Prescriptions: New cyclobenzaprine 5 mg tablet 5 mg PO BID PRN (Reason: muscle spasm) 3 Days Qty: 6 0RF No Action Dulera 100-5 mcg/actuation HFA aerosol inhaler inhalation Patient Comments: INHALE 2 PUFFS BY MOUTH TWICE DAILY ondansetron 4 mg tablet,disintegrating 4 mg PO Q8H PRN (Reason: nausea and vomiting) Qty: 10 0RF Referrals Follow up/Referrals: Caismiro Golden DO [Primary Care Provider, [facility]] - See instructions Activity Restrictions/Add. Instructions Additional Instructions/Restrictions: Today you were evaluated in the emergency department. You were given an outpatient form to have a DVT ultrasound of your left lower extremity. Please follow-up as directed. Return to the ED for worsening of condition. Clinical Impressions Clinical Impression: Pain of left calf Instructions Patient Instructions: DI for Muscle Strain Print Language Print Language: Syrian Discharge ED Provider: John Negrete General Adult HPI <John Negrete MD - Last Filed: 10/19/24 19:17> General Chief complaint: Extremity Problem,Nontraumatic Stated complaint: Possible Blood clot in L leg; Strain Time Seen by Provider: 10/19/24 17:58 Mode of Arrival: Ambulatory Source of Information: Patient Description of Symptoms (Recalled from ER Triage Doc. by RN): pt c/o L calf pain x2d. pt has not taken anything for the pain. pt states it feels like a pulled muscle and that she is on her feet a lot for work. pt states the pain is cramping and tight. Related Data Home Medications ?Medication ?Instructions ?Recorded ?Confirmed mometasone-formoterol HFA 100 inhalation 05/17/2406/20 mcg-5 mcg/actuation aerosol inhaler (Dulera) Previous Rx's ?Medication ?Instructions ?Recorded ondansetron 4 mg disintegrating 4 mg PO Q8H PRN nausea and 07/11/24 tablet vomiting #10 tabs cyclobenzaprine 5 mg tablet 5 mg PO BID PRN muscle spa sm 3 10/19/24 days #6 tabs Allergies Allergy/AdvReac Type Severity Reaction Status Date / Time Penicillins Allergy Intermediate I-RASH Verified 07/11/24 11:28 peanut Allergy Unknown Allergy Verified 07/11/24 11:28 test showed pt allergic to peanuts amoxicillin Allergy Verified 07/11/24 11:28 <Mis Pathak APRN - Last Filed: 10/20/24 09:40> History of Present Illness HPI narrative: pt is a 28 yo F without signifiant pmhx who presented to the ed for left calf pain for 2-3 days PFSH <John Negrete MD - Last Filed: 10/19/24 19:17> PFS Disclaimer: The information contained in this section may have been updated after the patient was seen, as this information can be updated by other users. Medical History Pharyngitis Close exposure to COVID-19 virus Sinusitis Abdominal pain Contusion of face Acute viral syndrome Family History Mother Thyroid disorder Sister Thyroid disorder Social History Smoking Status: Never smoker alcohol intake: never substance use type: denies use current occupational status: employed Travel in the last 8 weeks?: None Have you lived/traveled outside US in past 30 days?: No Contact w/someone who lives/traveled outside US past 30 days?: No Exposure to someone with infectious disease in past 14 days?: No Do you have a fever (greater than 100.4 F or 38 C)?: No Have you tested positive for COVID-19?: No Exposed to someone with COVID-19 in past 14 days?: No Do you have a sore throat?: No Do you have a cough?: No Do you have any weakness?: No Do you have any diarrhea?: No Are you experiencing any unusual bleeding?: No Do you have any muscle aches/pain?: No Do you have any abdominal pain?: No Are you experiencing loss of taste or smell?: No Other Medical History Have you received the Flu Vaccine for this season: No Have you received the Pneumonia Vaccine: No <Mis Pathak APRN - Last Filed: 10/20/24 09:40> ROS Obtained: Yes Systems reviewed as appropriate & no additional complaints except as documented Physical Exam <Mis Pathak APRN - Last Filed: 10/20/24 09:40> General General appearance: alert and in no apparent distress Head Head exam: atraumatic Eye Eye exam: Present normal appearance ENT ENT exam: Present normal exam Respiratory Respiratory exam: Present normal lung sounds bilaterally Cardiovascular Cardiovascular exam: Present regular rate Extremities Exam Extremities exam: Present calf tenderness and other (lle pain with extension and flexion ) Neurological Exam Neurological exam: Present alert and oriented X3 Medical Decision Making <John Negrete MD - Last Filed: 10/19/24 19:17> Medical Records Screening: Per USPSTF and CDC recommendations, given the prevalence of disease in our region, it is our hospital?s policy to screen for HIV and viral Hepatitis for all patients aged 18 and over and those with ongoing risk factors. Vital Signs: 10/19/24 17:50 10/19/24 19:05 10/19/24 19:33 Temperature 98.1 F 98.1 F Temperature Source Oral Pulse Rate 74 74 Pulse Rate [Left] 86 Respiratory Rate 14 16 Blood Pressure 115/69 115/69 Blood Pressure [Right Arm] 111/66 Blood Pressure Mean 84 Blood Pressure Mean [Right Arm] 81 Blood Pressure Source [Right Arm] Automatic Cuff Blood Pressure Position [Right Arm] Sitting 02 Sat by Pulse Oximetry 99 99 Oxygen Delivery Method Room Air Room Air Room Air Lab Data Lab Results 10/19/24 18:27: WBC 12.0 H, RBC 4.08 L, Hgb 10.8 L, Hct 33.2 L, MCV 81.4, MCH 26.5 L, MCHC 32.5, RDW 14.1, Plt Count 347, MPV 10.7 H, Neut % (Auto) 66.2, Lymph % (Auto) 18.4, Ross % (Auto) 9.1, Eos % (Auto) 5.1, Baso % (Auto) 0.6, N eut # (Auto) 8.0 H, Lymph # (Auto) 2.2, Ross # (Auto) 1.1 H, Eos # (Auto) 0.6 H, Baso # (Auto) 0.1, D-Dimer 0.73 H, Sodium 139, Potassium 3.6, Chloride 106, Carbon Dioxide 25, Anion Gap 11.6, BUN 15, Creatinine 0.80, Estimated Creat Clear 137, Estimated GFR 85, Est GFR ( Amer) 103, Glucose 105 H, Calcium 9.2, Total Bilirubin 0.4, AST 28, ALT 19, Alkaline Phosphatase 77, Total Protein 7.7, Albumin 4.4, Globulin 3.3 H, Albumin/Globulin Ratio 1.3 10/19/24 18:27 10/19/24 18:27 Orders (Tests/Meds): ORDERS Category Date Time Status POCUS Point of Care (ER Only) Stat Exams 10/19/24 18:17 Completed CBC w/Auto Diff [Complete Blood Count Auto Diff] Stat Lab 10/19/24 18:27 Completed CMP [Comprehensive Metabolic Panel] Stat Lab 10/19/24 18:27 Completed D-Dimer Stat Lab 10/19/24 18:27 Completed <Mis Pathak APRN - Last Filed: 10/20/24 09:40> Fab Inquiry Pt receiving controlled substance: No Vital Signs: 10/19/24 17:50 10/19/24 19:05 10/19/24 19:33 Temperature 98.1 F 98.1 F Temperature Source Oral Pulse Rate 74 74 Pulse Rate [Left] 86 Respiratory Rate 14 16 Blood Pressure 115/69 115/69 Blood Pressure [Right Arm] 111/66 Blood Pressure Mean 84 Blood Pressure Mean [Right Arm] 81 Blood Pressure Source [Right Arm] Automatic Cuff Blood Pressure Position [Right Arm] Sitting 02 Sat by Pulse Oximetry 99 99 Oxygen Delivery Method Room Air Room Air Room Air Lab Data Lab Results 10/19/24 18:27: WBC 12.0 H, RBC 4.08 L, Hgb 10.8 L, Hct 33.2 L, MCV 81.4, MCH 26.5 L, MCHC 32.5, RDW 14.1, Plt Count 347, MPV 10.7 H, Neut % (Auto) 66.2, Lymph % (Auto) 18.4, Ross % (Auto) 9.1, Eos % (Auto) 5.1, Baso % (Auto) 0.6, N eut # (Auto) 8.0 H, Lymph # (Auto) 2.2, Ross # (Auto) 1.1 H, Eos # (Auto) 0.6 H, Baso # (Auto) 0.1, D-Dimer 0.73 H, Sodium 139, Potassium 3.6, Chloride 106, Carbon Dioxide 25, Anion Gap 11.6, BUN 15, Creatinine 0.80, Estimated Creat Clear 137, Estimated GFR 85, Est GFR ( Amer) 103, Glucose 105 H, Calcium 9.2, Total Bilirubin 0.4, AST 28, ALT 19, Alkaline Phosphatase 77, Total Protein 7.7, Albumin 4.4, Globulin 3.3 H, Albumin/Globulin Ratio 1.3 Orders (Tests/Meds): ORDERS Category Date Time Status POCUS Point of Care (ER Only) Stat Exams 10/19/24 18:17 Completed CBC w/Auto Diff [Complete Blood Count Auto Diff] Stat Lab 10/19/24 18:27 Completed CMP [Comprehensive Metabolic Panel] Stat Lab 10/19/24 18:27 Completed D-Dimer Stat Lab 10/19/24 18:27 Completed Medical Decision Narrative: In summary pt is a 28 yo F without signifiant pmhx who presented to the ed for left calf pain for 2-3 days. denies redness, warmth, or trauma to the area. denies recent exertion or walking. states she is concerned about a blood clot in lle. she had pain with plantar and dorsiflexion and mild tenderness to palpation of left calf, tightness of calf on palpation as well. ddx included calf strain, dvt, compartment syndrome, localized rhabdomyolysis, gastrocnemius spasm, soleus spasm, among others. cbc unremarkable for significant leukocytosis or anemia d dimer mildly elevated at 0.73 attending performed bedside ultrasound, no obvious dvt noted. patient provided with outpatient order for formal dvt us which will be obtained tuesday discussed with patient to take flexeril as directed, may use tylenol or nsaids otherwise for pain relief follow-up with pcp, return to the ed if new or worsening symptoms including chest pain or sob Procedures <John Negrete MD - Last Filed: 10/19/24 19:17> Miscellaneous Procedure Procedure Performed: Indication left calf pain Structures identified Common femoral veins and popliteal veins on the left Findings complete compression of the left common femoral veins and left popliteal veins with normal augmentation on the left Impression no evidence of left DVT The study was performed by me and I personally interpreted all images and videos based on my clinical judgment these images were adequate and did not necessitate further imaging Limited soft tissue ultrasound Indication: Left calf pain Identified structures: Location: Left Findings: Normal soft tissue Impression: Normal soft tissue ultrasound Images were to permanent archive The study was technically adequate Soft Tissue CPT Codes: CPT Neck: 15489-51 CPT Upper extremity: 46986-20 CPT Axilla: 36086-07 CPT Chest wall: 47763-68 CPT Breast: 19127-98-AF/LT (complete), 37313-20-EJ/LT (limited), CPT Upper Back: 10434-33 CPT Lower Back: 36324-55 CPT Abdominal Wall: 89955-62 CPT Pelvic Wall: 25380-88 CPT Lower Extremity: 55400-76 CPT Other Soft Tissue: 03379-35 This study was performed by me, and I personally interpreted all images/videos. Based on my clinical judgement, these images were adequate and did not necessitate further imaging. Critical Care <Mis Pathak APRN - Last Filed: 10/20/24 09:40> Critical Care Time Critical Care Time: No
[2024-10-19 19:33] VITALS: BP 115/69; PULSE 74; RESP 16; TEMP 36.7; O2SAT 99
== END 2024-10-19 19:34 | disposition home or self-care (01) ==
PROVIDERS: Nurse Practitioner; Emergency Provider Student in an Organized Health Care Education/Training Program; PCP Internal Medicine
DX: M79.662 Pain in left lower leg (principal)
CPT/HCPCS: 80053; 85025; 85378; 99284

== ENCOUNTER 2024-10-21 09:53 | Outpatient (CLI) | payer MEDICAID, SELFPAY ==
--- OUTSIDE RECORDS SUMMARY | 2024-09-20 09:30 | XMS_ITS | Encounter Summary ---
Author Organization [facility] Address [address] [place] [address] Care Team Providers Care Engine Turner Name Role Phone [place] Casimiro Dhruv WORRELL Primary Care Provider [phone] Reason for Visit * Reason Comments Consult * Consultation (Routine) - Closed Specialty Diagnoses / Procedures Referred By Contac t Referred To Contact General, Endocrine & Minimally Invasive Surgery / General Surgery Diagnoses Goiter Chris Chavira MD [facility] [address] [address] Phone: tel: fax: Referral ID Status Reason Start Date Expiration Date V isits Requested Visits Authorized [id number] Closed Specialty Services Required 05/25/2024 11/24/2025 1 1 Encounter Details Date Type Department Care Team ([facility] Contact Info) Description 09/20/2024 9:30 AM EDT Consult Medical Office Building Surgical Specialties [address] [facility], [address] [place] [address] Nolan Medina MD [address] [facility] [address] [place] [address] Wesley's thyroiditis (Primary Dx); Goiter Social History Tobacco Use Types Packs/Day Years Used Date Smoking Tobacco: Never Smokeless Tobacco: Never Alcohol Use Standard Drinks/Week Comments Never 0 (1 standard drink = 0.6 oz pur e alcohol) PHQ-2 Answer Date Recorded Patient Health Questionnaire-2 Score 0 05/25/2024 Humiliation, Afraid, Rape, and Kick questionnair e Answer Date Recorded Within the last year, have y ou been afraid of your partner or ex-partner? No 09/20/2024 Within the last year, have y ou been humiliated or emotionally abused in other ways by your partner or ex-partner? No Within the last year, have y ou been kicked, hit, slapped, or otherwise physically hurt by your partner or ex-partner? No 09/20/2024 Within the last year, have y ou been raped or forced to have any kind of sexual activity by your partner or ex-partner? No 09/20/2024 Social Connection and Isolation Panel Answer Date Recorded In a typical week, how many times do you talk on the phone with family, friends, or neighbors? More than three times a week 09/20/2024 How often do you get togethe r with friends or relatives? More than three times a week 09/20/2024 How often do you attend [facility] services? Never 09/20/2024 Do you belong to any clubs o r organizations such as yarsani groups, unions, fraternal or athletic groups, or school groups? No 09/20/2024 How often do you attend meet ings of the clubs or organizations you belong to? Never 09/20/2024 Are you , , di vorced, , never , or living with a partner? 09/20/2024 AUDIT-C Answer Date Recorded Q1: How often do you have a drink containing alcohol? Never 09/20/2024 Q2: How many drinks containi ng alcohol do you have on a typical day when you are drinking? Patient does not drink Q3: How often do you have si x or more drinks on one occasion? Never 09/20/2024 Overall Financial Resource Strain (CARDIA) Answe r Date Recorded How hard is it for you to pa y for the very basics like food, housing, medical care, and heating? Not hard at all 09/20/2024 [facility] [facility] - Occupational Stress Questionnaire Answer Date Recorded Do you feel stress - tense, restless, nervous, or anxious, or unable to sleep at night because your mind is troubled all the time - these days? Not at all 09/20/2024 Exercise Vital Sign Answer Date Recorde d On average, how many days pe r week do you engage in moderate to strenuous exercise (like a brisk walk)? 7 days 09/20/2024 On average, how many minutes do you engage in exercise at this level? 70 min 09/20/2024 Hunger Vital Sign Answer Date Recorded Within the past 12 months, y ou worried that your food would run out before you got the money to buy more. Never true 09/21/19 25 Within the past 12 months, t he food you bought just didn't last and you didn't have money to get more. Never true 09/20/2024 PRAPARE - Transportation Answer Date Re corded In the past 12 months, has l ack of transportation kept you from medical appointments or from getting medications? No 05/2024 In the past 12 months, has l ack of transportation kept you from meetings, work, or from getting things needed for daily living? No 09/20/2024 Housing Stability Vital Sign Answer Aayush e Recorded In the last 12 months, was t here a time when you were not able to pay the mortgage or rent on time? No 09/20/2024 In the past 12 months, how m any times have you moved where you were living? 0 09/20/2024 At any time in the past 12 m [facility], were you homeless or living in a snf (including now)? No 09/20/2024 Utilities Answer Date Recorded In the past 12 months has th e electric, gas, oil, or water company threatened to shut off services in your home? No 09/20/2024 Comments Unknown Sex and Gender Information Value Date Recorded Sex Assigned at Not on file Legal Sex Female 5:20 PM EDT Gender Identity Not on file Sexual Orientation Not on file Travel History Travel Start Travel End [place] 10/01/2024 10/05/2024 documented as of this encounter Last Filed Vital Signs Vital Sign Reading Time Taken Comments Blood Pressure 106/74 09/20/2024 10:55 AM EDT Pulse 57 09/20/2024 10:55 AM EDT Temperature 36.7 C (98.1 F) 09/20/2024 10:55 AM EDT Respiratory Rate 18 09/20/2024 10:55 AM EDT Oxygen Saturation 99% 09/20/2024 10:55 AM EDT Inhaled Oxygen Concentration - - Weight 83.7 kg (184 lb 8.4 oz) 09/20/2024 10:55 AM EDT Height 160 cm (5' 3 ) 09/20/2024 10:55 AM EDT Body Mass Index 32.69 09/20/2024 10:55 AM EDT documented in this encounter Functional Status * AUDIT-C Score Answer Date of Assessment Author 0 09/20/2024 10:55 AM EDT Jose Covarrubias * Question Answer Date of Assessment Author Q1: How often do you have a drink containing alcohol? Never 09/20/2024 10:55 AM EDT Jose Covarrubias Q2: How many drinks containing alcohol do you have on a typical day when you are drinking? Patient does not drink 09/20/2024 10:55 AM EDT Jose Covarrubias Q3: How often do you have six or more drinks on one occasion? Never 09/20/2024 10:55 AM EDT Jose Covarrubias documented as of this encounter Miscellaneous Notes * Juan Sanders RN - 09/20/2024 12:14 PM EDT Images from the original note were not included. [id number] Having Thyroid Surgery You are having surgery to remove part or all of your thyroid. The thyroid is a gland in the front of the neck. It sits just below the voice box (larynx). The gland?s main job is to make thyroid hormone. This helps control the body?s metabolism. Thyroid surgery may be done to treat an enlarged thyroid (goiter). Or it may be done to remove a lump (nodule). It may also be done to treat an overactivegland (hyperthyroid). Or it may be done to treat a gland that may have cancer cells. Getting ready for surgery ?? Tell your healthcare provider about all the medicines you take. This includes prescription and iarg-qdx-fugpjwo medicines. It includes aspirin and other blood thinners. It also includes vitamins, herbs, and other supplements. You may need to stop taking some medicines. ?? Follow all directions you're given for not eating or drinking before the surgery. ?? Write down questions you have about the surgery. This helps to make sure the provider addresses all your concerns before you agree to the procedure. Ask the surgeon how much experience they've haddoing thyroid surgeries. During the surgery ?? An IV (intravenous) line will be put in your arm or hand. You?ll receive fluids and medicines through the IV during the surgery. ?? You?ll be given general anesthesia to keep you asleep and pain-free during the surgery. ?? A cut (incision) is made in your neck, along a crease in your skin. ?? Half of the thyroid gland may be taken out (lobectomy). Or most of the gland may be taken out (subtotal thyroidectomy). In some cases, all of the gland is taken out (total thyroidectomy). The surgeon may not know how much to take out until the surgery. ?? The incision is then closed with surgical strips, clips, or stitches (sutures). A thin tube (drain) may be left in the incision. This helps remove fluid that can build up. The incision is made at the base of your neck. After the surgery ?? It may take a few hours for the anesthesia to wear off. You'll get up and walk around soon afterthe surgery. You'll be watched for bleeding. ?? You may spend some time staying in the hospital or surgery center after the surgery. ?? In most cases, you can eat and drink the evening after the surgery. You may still have an upset stomach (nausea) from the anesthesia. ?? You?ll be given medicine to help manage pain, if needed. ?? You will be tested to make sure your parathyroid glands are working. The stress of surgery may stop them from working for a short time. If this happens, you may be given calcium and vitamin D pills for a few days. ?? You may have a sore throat and a hoarse voice for 1 week or so after the surgery. ?? You may need to take a thyroid pill for the rest of your life if your thyroid gland can no longer make thyroid hormone. Risks and possible complications The risks and possible complications of this procedure include: ?? Bleeding ?? Infection ?? Damage to nerves in your voice box. This can lead to a hoarse voice. Often this hoarseness gets better over time. But in rare cases it may last. ?? Damage to the parathyroid glands or their blood supply. This can make them underactive (hypoparathyroidism). These glands control the amount of calcium in your blood. Often the hypoparathyroidism gets better over time. But you may need to take daily calcium pills for a long time, or for the restof your life. You may also need to take vitamin D supplements. Last Reviewed Date: 2023 00:00:00 ?? [id number] [employer]. All rights reserved. This information is not intended as a substitute for professional medical care. Always follow your healthcare professional's instructions. * Eva On[employer] - Juan Rasmussen RN - 09/20/2024 12:14 PM EDT Images from the original note were not included. [id number] After Thyroid or Parathyroid Surgery - Dr. Medina Incision care Your incision will be covered with steri-strips. Steri-strips are pieces of white tape on the incision. ?? When to remove coverings: Steri-strips will fall off on their own 1-2 week after surgery. ?? Leave the incision open to the air. ?? You may apply lotion 2 weeks after surgery or when the incision looks to be healed with no scabs. ?? Wait 2 weeks after surgery before swimming or letting the incision stay under water in a bathtub. ?? Use sunscreen on the incision for the first year to prevent darker scars. Showering and bathing ?? Wait 48 hours after surgery before showering. ?? It?s OK if the steri-strips get wet. ?? Shower normally with soap, water, and shampoo. ?? Let the water run over the incision. Pat dry with a towel after showering. ?? Do not let the incision go under water in the bathtub for 2 weeks. Pain control It may really hurt to cough, sneeze, and swallow (like strep throat) for 2-3 days after surgery. Itshould get better quickly after the first few days. Most patients use rnns-zbc-[id number] Tylenol (acetaminophen) and/or Advil (ibuprofen) for pain after surgery. ?? Tylenol (acetaminophen): 500-1000 mg every 6 hours as needed. ?? Advil (ibuprofen): 400-600 mg 3 times a day with food as needed. Activities ?? Move your neck in all directions to prevent neck soreness, tightness and headaches. ?? No driving or heavy lifting for 5 days after surgery. ?? You may return to your other normal activities. Diet You may return to your normal diet. Liquids and soft foods may be easier the first few days after surgery. Numbness or tingling Numbness or tingling in the fingertips, face or mouth, or cramping of the hands, may be a sign of low calcium. ?? If you have any of these, take 2000 mg of Tums (calcium carbonate) and wait an hour. ?? If they return, you may take more Tums. ?? If the problem continues, call the clinic at (8 a.m.-4:30 p.m., Tuesday-Tuesday) orcall the surgeon mobile solutions architect at . When to call and go to the ER Call the surgeon mobile solutions architect and go directly to the Emergency Room if you have any of these signs that you could have a bleeding problem: ?? A lot of neck swelling or bruising ?? New or worse problems breathing or swallowing These problems may be due to a bleeding problem, especially if they happen within the first 24 hours after surgery. If you feel it is an emergency, call [phone]. Call the surgeon mobile solutions architect at . Follow up ?? You will return to clinic to see the Endocrine Surgeon or the Endocrine Surgery Nurse Practitioner on the date scheduled during your office visit before surgery. ?? If you do not have an appointment, call the office at to schedule one. * Eva Chery - Juan Rasmussen RN - 09/20/2024 12:14 PM EDT Images from the original note were not included. [id number] * Assessment & Plan Note - Mars Talbert - 09/20/2024 9:30 AM EDTAssociated Problem(s): Wesley's thyroiditis Orders: Case Request Operating Room: THYROIDECTOMY; Standing * Progress Notes - Mars Talbert - 09/20/2024 9:30 AM EDT Dear Chris Chavira MD We had the pleasure of seeing your 28 y.o. year old patient Filomena Jones in consultation for Wesley's goiter. SUBJECTIVE The thyroid problem was found after work up for related symptoms. A coworker noticed her neck and thought she should be evaluated for thyroid problems, and her partner noticed a lump in her neck . Thereafter, she was evaluated and placed on thyroid replacement and received an ultrasound and FNA. Prior to this visit, the patient has had: (05/24/23) Ultrasound - R solid nodule 1.3 x 1.1 x 0.9 cm, R solid nodule 1.4 x 1.2 x 1.0 cm, L solid nodule 1.0 x 0.9 x 0.8 cm, L solid nodule 1.7 x 1.4 x 0.9 cm (05/24/23) FNA - lymphocytic infiltration. The patient is currently taking levothyroxine 50 mcg. Labs (04/11/24) reveal: TSH 11.50, free T4 0.9, and vit D 15.2 The patient is currently experiencing dysphagia, pressure/choke sensation, throat clearing, dry cough, shortness of breath, neck fullness/mass, and weight gain, but denies voice changes, weight loss,and tremor. She has been having other symptoms including weight gain, memory problems, and hair loss. She also experiences allergies with drainage. She denies a history of radiation exposure. Her family history includes hypothyroidism (mother and grandmother). Past Medical History[1] Surgical History[2] Family History[3] Social History[4] Allergies[5] Current Medications[6] Review of Systems Constitutional: weight gain Eyes: negative Ear, Nose, Mouth & Throat: pain, dysphagia, frequent throat clearing, and neck lump/mass Cardiovascular: negative Respiratory: negative Gastrointestinal: negative Urinary: negative Musculoskeletal: negative Skin: hair loss Neurological: negative Psychiatric: memory problems Endocrine: negative Hematologic & Lymphatic: negative and excessive menstrual bleeding at the onset on menarche. Allergic/Immunologic: drainage and itchy/watery eyes OBJECTIVE Blood pressure 106/74, pulse 57, temperature 36.7 ??C (98.1 ??F), temperature source Oral, resp. rate 18, height 1.6 m (5' 3 ), weight 83.7 kg (184 lb 8.4 oz), SpO2 99%. The patient received dietary education because they have an above normal BMI. and The patient received exercise education because they have an above normal BMI. Physical Exam Constitutional: No acute distress. Well appearing. Well nourished. Voice sounds normal during routine speech. Eyes: Pupils equal and round. Extraocular movements intact. No icterus. No exophthalmos. Ear, Nose, Mouth & Throat: Hearing normal. Moist mucous membranes. Poor dentition upon mouth examination. Neck: Neck was supple, symmetric, trachea midline. No lymphadenopathy. No palpable nodules. Thyromegaly noted. Pulmonary: Normal respiratory effort. Lungs were clear to auscultation. Chest symmetrical. Cardiovascular: Regular rate. Regular rhythm. No murmurs. No extremity edema. No JVD. Abdomen: Abdomen non-tender. No masses. Musculoskeletal: Gait and station were normal. Digits and nails were normal without clubbing or cyanosis. Stability was normal. Skin: No rashes or ulcers. Normal turgor. Psychiatric: Alert and orientated to person, place and time. Mood and affect were normal. Procedures: Procedure: In-Office Ultrasound Performed by: Nolan Medina MD Date of procedure: 09/20/24 Sonographic images are permanently stored and available in the [facility] PACS system. Indication: multinodular goiter Prior thyroid surgery: None Surgeon-performed real-time high-frequency sonographic imaging was performed in both the transverseand longitudinal planes of the entire thyroid, central neck lymph nodes, and lateral neck lymph nodes. Measurements are expressed as longitudinal (sagittal) x width (transverse) x depth (AP) unless otherwise noted. Thyroid gland echotexture is markedly heterogenous. Right thyroid lobe is very enlarged measuring 7.9 x 2.6 x 2.7 cm. Left thyroid lobe is enlarged measuring 5.6 x 2.3 x 2.5 cm. Isthmus measures 0.83 cm. Central lymph nodes (level ): 1cm pretracheal inferior midline reactive appearing LN Lateral lymph nodes (levels II-V): Unremarkable THYROID ULTRASOUND IMPRESSION: Diffusely enlarged and markedly heterogeneous thyroid gland consistent with active thyroiditis. ASSESSMENT/PLAN Assessment & Plan Wesley's thyroiditis Orders: Case Request Operating Room: THYROIDECTOMY; Standing Goiter Ms. Filomena Jones is a 28 y.o. hypothyroid female with Wesley's goiter in the setting of compressive symptoms (pain, dysphagia, frequent throat clearing, and neck lump/mass). We have reviewed outside records and labs. We have reviewed the reports for the ultrasound images. Reports are consistent with an enlarged thyroid / goiter in the setting of wesley's thyroiditis. Laboratory evaluatio n reveals elevated TSH (11.5). We proceeded with in-office surgeon-performed ultrasound which revealed a diffusely enlarged heterogenous thyroid. Sylvia basins included a 1.0 cm reactive central lymph node. FNA was not indicated. We will obtain the following: no additional labs or imaging needed. We spent some time discussing the diagnosis and evaluation of a diffusely enlarge thyroid with compressive symptoms in the setting of wesley thyroiditis, including indications for surgery. At thistime the patient meets criteria for and will benefit from surgery. We discussed the pros and cons of various surgical and non-surgical options. The patient has elected for total thyroidectomy. We discussed the risks and benefits of total thyroidectomy in detail including the risk of injury to the nerves to the vocal cords resulting in temporary or permanent voice changes, injury to the parathyroids resulting in possible lifelong calcium and vitamin D supplementation and the very small risk of infection and postoperative bleeding that could require a second surgery. We will use intraoperative nerve monitoring and PTH monitoring. The patient voiced understanding and signed informed consent. Surgical risk will be increased due to the patient's medical problems (obesity and GAUTAM). The patient will not need to undergo additional preoperative risk stratification. Comorbid conditions that impact our treatment planning include: obesity and GAUTAM. We will plan to see the patient back at 2 week(s) postop with no additional labs or imaging needed.It was a pleasure meeting Ms. Jones. We appreciate the consultation. Please feel free to callwith questions or concerns. Mars Talbert [1] Past Medical History: Diagnosis Date Allergic Asthma Hypothyroidism Thyroid nodule Vitamin D deficiency [2] Past Surgical History: Procedure Laterality Date APPENDECTOMY [3] Family History Problem Relation Name Age of Onset Thyroid disease Mother Carol Hobbs Thyroid disease Maternal Grandmother Karen david [4] Social History Tobacco Use Smoking status: Never Smokeless tobacco: Never Substance Use Topics Alcohol use: Never Drug use: Never [5] Allergies Allergen Reactions Peanut Allergen Powder-Dnfp Hives and Nausea Penicillins Hives and Itching Soybean Oil Hives and Rash [6] Current Outpatient Medications: cholecalciferol (Vitamin D-3) 25 MCG (1000 UT) tablet, Take 1 tablet (1,000 Units) by mouth 1 (one)time each day., Disp: 90 tablet, Rfl: 1 Dulera 100-5 MCG/ACT inhaler, Inhale 2 puffs 2 (two) times a day., Disp: , Rfl: levothyroxine (Synthroid, Levoxyl) 50 MCG tablet, Take 1 tablet (50 mcg) by mouth 1 (one) time eachday., Disp: 90 tablet, Rfl: 1 Cosigned by Nolan Medina MD at 09/20/2024 4:28 PM EDT Associated attestation - Nolan Medina MD - 09/20/2024 4:28 PM EDT I saw and evaluated the patient with the medical/FOUNDATION ENGINEER/PA student. I discussed the case with the medical/FOUNDATION ENGINEER/PA student and agree with the findings and plan as documented. I personally performed the Examand Medical Decision Making. I performed the entirety of the procedure(s). 28F with asthma, hypothyroidism (on LT4 50mcg), vitamin D deficiency, obesity (BMI 33), referred with goiter. Compressive symptoms. Labs 04/11/24: TSH 11.50, fT4 0.9, vitD 15.2. US thyroid 07/11/24 ([place]) reports 6.6cm right and 6cm left lobes with multiple nodules. Images reviewed by me with markedly heterogeneous and diffusely enlarged thyroid gland. FNA 06/03/23 left thyroid - [place] II, benign. US today with diffusely enlarged and markedly heterogeneous thyroid gland consistent with active thyroiditis. We discussed thyroid disease and thyroidectomy, including risks and expected course. Total thyroidectomy Overnight observation Thank you, Nolan Medina MD, FACS etl informatica architect General, Endocrine & Metabolic Surgery documented in this encounter Plan of Treatment Upcoming Encounters Date Type Department Care Team (Late st Contact Info) Description 02/20/2025 8:00 AM [facility] Hospital Encounter [facility] Operating Room [address] [place] [address] Nolan Medina MD [address] [address] 02/20/2025 8:00 AM EST - 02/20/2025 11:45 AM [facility] Surgery [facility] Operating Room [address] [place] [address] Nolan Medina MD [address] [address] THYROIDECTOMY [[id number] (CPT )] 03/07/2025 3:30 PM EST Office Visit Medical Office Building Surgical Specialties [address] [facility], [address] [place] [address] Nolan Medina MD [address] [facility] [address] [place] [address] 04/15/2025 1:20 PM EST Office Visit Professional [facility] [address], [address] [place] [address] Leydi Rojas MD [address] [place] [address] [address] [place] [id number] 05/31/2025 11:00 AM EDT [facility] [address] [place] [address] Chrsi Chavira MD [address] [place] [address] Scheduled Procedures Name Priority Associated Diagnoses Date/Ti me THYROIDECTOMY Wesley's thyroiditis 02/20/2025 8:00 AM EST documented as of this encounter Goals Goal Patient Goal Type Associated Problems Recent Progress Patient-Stated? Author Autogenerat ed Goal Care Plan Autogenerated Problem No Brielle Nicole MD documented as of this encounter Visit Diagnoses Diagnosis Wesley's thyroiditis- Primary Chronic lymphocytic thyroiditis Goiter Goiter, unspecified Wesley's thyroiditis- Primary Chronic lymphocytic thyroiditis Wesley's thyroiditis Chronic lymphocytic thyroiditis documented in this encounter Additional Health Concerns Active Problems Noted Date Diagnosed Date Autogenerated Problem 09/20/2024 Assessment Noted Time A fall risk assessment has been complete d for the patient 09/20/2024 10:58 AM EDT A Body Mass Index follow-up plan has been documented for the patient 09/20/2024 12:14 PM EDT documented as of this encounter Care Teams Engine Turner Relationship Specialty Start Date End Date Casimiro Golden DO [address] [place] [address] [place] [id number] PCP - General 09/20/24 documented as of this encounter
--- OUTSIDE RECORDS SUMMARY | 2024-10-10 14:20 | XMS_ITS | Encounter Summary ---
Author Organization [facility] Address [address] [place] [address] Care Team Providers Care Profiling Machine Setup Operator Name Role Phone ChicoCasimiro Dhruv WORRELL Primary Care Provider [phone] Reason for Referral * Consultation (Routine) - Authorized Specialty Diagnoses / Procedures Referred By Contac t Referred To Contact Diagnoses Hypothyroidism, unspecified type Leydi Rojas MD [address] [place] [address] Phone: tel: fax: Referral ID Status Reason Start Date Expiration Date V isits Requested Visits Authorized [id number] Authorized 10/10/2024 04/11/2026 1 1 Reason for Visit * Reason Comments Follow-up Encounter Details Date Type Department Care Team (Late st Contact Info) Description 10/10/2024 2:20 PM EDT Office Visit [facility] [address], [address] [place] [address] Leydi Rojas MD [address] [place] [address] Hypothyroidism, unspecified type (Primary Dx); [...] How often do you attend chur or worship services? Never 09/20/2024 Do you belong to any clubs o r organizations such as jainism groups, unions, fraternal or athletic groups, or [...] and heating? Not hard at all 09/20/2024 [facility] of Occupat ional Health - Occupational Stress [...] any time in the past 12 m [facility], were you homeless or living in a senior living (including now)? No 09/20/2024 Utilities Answer Date Recorded In the past 12 months has th e [employer], gas, oil, or water company threatened to shut off services in your home? No 09/20/2024 Comments Unknown Sex and Gender Information Value Date Recorded Sex Assigned at Not on file Legal Sex Female 5:20 PM EDT Gender Identity Not on file Sexual Orientation Not on file Travel History Travel Start Travel End [place] 10/01/2024 10/05/2024 documented as of this encounter [...] Last Visit:04.11.24 Since last visit seen by [facility] 05.25.2024 and referred to endocrine surgeon [...] None EtOH: None Work: works as a automotive service cashier Past Medical History: Diagnosis Date Allergic [...] 75 Thyroid US 05.24.2023 [facility]03.20[facility] I have reviewed prior records. Assessment/Plan Diagnoses [...] Hormone, Plasma Free T4, Plasma Follow Up [facility] I have answered my patient's questions to [...] st Contact Info) Description 02/20/2025 8:00 AM [facility] Hospital Encounter [facility] Operating Room [address] [place] [address] Nolan Medina MD [address] [address] 02/20/2025 8:00 AM EST - 02/20/2025 11:45 AM EST Surgery [facility] Operating Room [address] [place] [address] Nolan Medina MD [address] [address] THYROIDECTOMY [[id number] (CPT )] 03/07/2025 3:30 PM EST Office Visit Medical Office Building Surgical Specialties [address] [facility], [address] [place] [address] Nolan Medina MD [address] [address] 04/15/2025 1:20 PM EST Office Visit [facility] [address] [facility] [address] [place] [address] Leydi Rojas MD [address] [facility] [address] [place] [phone] 05/31/2025 11:00 AM EDT Office Visit [facility] Endocrinology [address] [place] [address] Chris Chavira MD [address] [place] [address] Scheduled Orders Name Type Priority [...] Associated Diagnoses Orde r Schedule Follow Up [facility] Outpatient Referral Routine Hypothyroidism, unspecified type Expected: 04/12/2025, Expires: 04/13/2026 documented as of this encounter Goals Goal Patient Goal Type Associated Problems Recent Progress Patient-Stated? Author Autogenerat ed Goal Care Plan Autogenerated Problem No Breille Nicole MD documented as of this encounter [...] ORDERABLES Final R esult [facility] [address] [place] [address] * (ABNORMAL) Thyroid Stimulating Hormone, Plasma (10/10/2024 3:07 PM EDT) Thyroid Stimulating Hormone, Plasma 5.68(H) 0.40 - 4.20 uIU/mL 10/10/2024 5:55 PM EDT [facility] Blood Venous blood specimen / Unknown Venipuncture / Unknown 10/10/2024 3:07 PM EDT 10/10/2024 3:07 PM EDT Narrative [facility] - 10/10/2024 5:55 PM EDT Trimester Specific Ranges TSH ( IU/mL) 1st Trimester 0.1 - 3.0 2nd Trimester 0.19 - 4.06 3rd Trimester 0.3 - 3.7 Leydi Rojas MD LAB BLOOD ORDERABLES Final R esult Performing Organization Address City/[facility] Co de Phone Number [facility] [address] [place] [address] * (ABNORMAL) Iron & Total Iron Binding Capacity, Plasma (Includes Transferrin) (10/10/2024 3:07 PM EDT) Pathologist [facility] Iron, Plasma 42 30 - 160 ug/dL 10/10/2024 5:58 PM EDT [facility] Transferrin, Plasma 283 200 - 360 mg/dL 10/10/2024 5:58 PM EDT [facility] Total Iron Binding Capacity, Plasma 354 240 - 450 ug/mL 10/10/2024 5:58 PM EDT [facility] Transferrin Saturation 12(L) 14 - 50 % 10/10/2024 5:58 PM EDT [facility] Blood Venous blood specimen / Unknown Venipuncture / Unknown 10/10/2024 3:07 PM EDT 10/10/2024 3:07 PM EDT Leydi Rojas MD LAB BLOOD ORDERABLES Final R esult [facility] [address] [place] [id number] * Vitamin D 25 Hydroxy (10/10/2024 3:07 PM EDT) Vitamin D 25 Hydroxy 24.3 20.0 - 80.0 ng/mL 10/10/2024 7:29 PM EDT [facility] Blood Venous blood specimen / Unknown Venipuncture / Unknown 10/10/2024 3:07 PM EDT 10/10/2024 3:07 PM EDT Narrative [facility] - 10/10/2024 7:29 PM EDT Testing performed on [employer], standardized against NIST SRM 2972. When testing [...] ORDERABLES Final R esult Performing Organization Address [facility] Co de Phone Number [facility] [address] [place] [address] * Ferritin, Serum (10/10/2024 3:07 PM EDT) Ferritin, Serum 26 13 - 150 ng/mL 10/10/2024 6:04 PM EDT [facility] Blood Venous blood specimen / Unknown Venipuncture / Unknown 10/10/2024 3:07 PM EDT 10/10/2024 3:07 PM EDT us Leydi Rojas MD LAB BLOOD ORDERABLES Final R esult Performing Organization Address City/[facility]/ZIP Co de Phone Number [facility] [address] [place] [address] documented in this encounter Visit Diagnoses Diagnosis [...] documented as of this encounter Care Teams Profiling Machine Setup Operator Relationship Specialty Start Date End Date Casimiro Golden DO [address] [place] [address] [place] [address] PCP - General 09/20/24 documented as of this encounter
--- NOTE | 2024-10-21 | CA_ITS ---
FINAL REPORT TECHNIQUE: Left lower extremity venous duplex was performed with augmentation and compression. CLINICAL HISTORY: Left leg pain with elevated D-dimer COMPARISON: None FINDINGS: Proper flow is seen throughout the deep venous system. There is no evidence of deep venous thrombosis of the left lower extremity. IMPRESSION: no deep venous thrombosis of the left lower extremity. Reviewed, Interpreted and Dictated by Zbigniew Hewitt MD Transcribed by Chloe Kirkpatrick Authenticated and . [facility]
--- OUTSIDE RECORDS SUMMARY | 2024-10-21 09:56 | XMS_ITS | Clinical Summary ---
Author Organization [facility] Address [address] [place] [address] Care Team Providers Care Chief Executive Or Managing Director Name Role Phone Casimiro Golden Dhruv WORRELL Primary Care Provider [phone] Allergies Active Allergy Reactions Criticality Noted Date [...] Team Description 10/11/2024 Telephone [facility] [address], [address] [place] [address] Kristan Vazquez RN 10/11/2024 Results Follow-Up [facility] [address] [place] [id number] Leydi Rojas MD 10/10/2024 2:20 PM EDT Office Visit [facility] [address], [address] [place] [address] Leydi Rojas MD Hypothyroidism, unspecified type (Primary Dx); Vitamin D deficiency; Iron deficiency; Thyroid nodule; Other fatigue 10/10/2024 Travel 09/20/2024 9:30 AM EDT Consult Medical [facility] [address], [address] [place] [phone] Nolan Median MD Carleen's thyroiditis (Primary Dx); Goiter 09/20/2024 Travel 09/19/2024 Abstract Medical Office Building [facility] [address], [address] [place] [phone] Carson Coombs from Last 3 Months Family History Medical History Relation Name Comments Thyroid disease Maternal Grandmother Karen david Thyroid disease Mother Carol Hobbs Relation Name Status Comments Maternal Grandmother [...] often do you attend chur ch or lutheran services? Never 09/20/2024 Do you belong to any clubs o r organizations such as quaker groups, unions, fraternal or athletic groups, or [...] and heating? Not hard at all 09/20/2024 [facility] of Occupat ional Health - Occupational [...] any time in the past 12 m [facility], were you homeless or living in [...] st Contact Info) Description 02/20/2025 8:00 AM [facility] Hospital Encounter [facility] S Operating Room [address] [place] [address] Nolan Medina MD [address] [address] 02/20/2025 8:00 AM EST - 02/20/2025 11:45 AM EST Surgery [facility] S Operating Room [address] [place] [address] Nolan Medina MD [address] [address] THYROIDECTOMY [[id number] (CPT )] 03/07/2025 3:30 PM EST Office Visit Medical [facility] [address] , [address] [place] [address] Nolan Medina MD [address] [facility] [address] [place] [address] 04/15/2025 1:20 PM EST Office Visit [facility] [address], [address] [place] [address] Ledyi Rojas MD [address] [facility] [address] [place] [address] 05/31/2025 11:00 AM EDT Office Visit [facility] [address] [place] [address] Chris Chavira MD [address] [place] [address] Scheduled Procedures Name Priority Associated [...] 19+ 3-dose series) 11/29/2014 UKY-Pap Smear 11/29/2016 [id number] Vaccine (3 - Pfizer risk series) 06/07/2020 [...] - 160 ug/dL 10/10/2024 5:58 PM EDT [facility] Transferrin, Plasma 283 200 - 360 mg/dL 10/10/2024 5:58 PM EDT [facility] Total Iron Binding Capacity, Plasma 354 240 - 450 ug/mL 10/10/2024 5:58 PM EDT [facility] Transferrin Saturation 12(L) 14 - 50 % 10/10/2024 5:58 PM EDT [facility] Blood Venous blood specimen / Unknown Venipuncture / Unknown 10/10/2024 3:07 PM EDT 10/10/2024 3:07 PM EDT us Leydi Rojas MD LAB BLOOD ORDERABLES Final R esult Performing Organization Address [facility]/ZIP Co de Phone Number [facility] [address] [place] [address] * Vitamin D 25 Hydroxy (10/10/2024 3:07 PM EDT) Pathologist [facility] Vitamin D 25 Hydroxy 24.3 20.0 - 80.0 ng/mL 10/10/2024 7:29 PM EDT [facility] Blood Venous blood specimen / Unknown Venipuncture / Unknown 10/10/2024 3:07 PM EDT 10/10/2024 3:07 PM EDT Narrative [facility] - 10/10/2024 7:29 PM EDT Testing performed on [employer], standardized against NIST SRM 2972. When testing [...] ORDERABLES Final R esult Performing Organization Address [facility]/ZIP Co de Phone Number [facility] [address] [place] [address] * (ABNORMAL) Thyroid Stimulating Hormone, Plasma (10/10/2024 3:07 PM EDT) Thyroid Stimulating Hormone, Plasma 5.68(H) 0.40 - 4.20 uIU/mL 10/10/2024 5:55 PM EDT [facility] Blood Venous blood specimen / Unknown Venipuncture / Unknown 10/10/2024 3:07 PM EDT 10/10/2024 3:07 PM EDT Narrative [facility] - 10/10/2024 5:55 PM EDT Trimester Specific Ranges TSH ( IU/mL) 1st Trimester 0.1 - 3.0 2nd Trimester 0.19 - 4.06 3rd Trimester 0.3 - 3.7 Leydi Rojas MD LAB BLOOD ORDERABLES Final R [facility] Performing Organization Address City/[facility]/ZIP Co de Phone Number [facility] [address] [place] [address] * Free T4, Plasma (10/10/2024 3:07 PM EDT) Free T4, Plasma 0.9 0.8 - 1.7 ng/dL 10/10/2024 5:55 PM EDT [facility] Blood Venous blood specimen / Unknown Venipuncture / Unknown 10/10/2024 3:07 PM EDT 10/10/2024 3:07 PM EDT Narrative [facility] - 10/10/2024 5:55 PM EDT Free T4 Trimester Specific Ranges 1st Trimester 0.9 - 1.50 ng/dL 2nd Trimester 0.7 - 1.40 ng/dL 3rd Trimester 0.7 - 1.24 ng/dL Leydi Rojas MD LAB BLOOD ORDERABLES Final R esult [facility] [address] [place] [address] * Ferritin, Serum (10/10/2024 3:07 PM EDT) Ferritin, Serum 26 13 - 150 ng/mL 10/10/2024 6:04 PM EDT [facility] Blood Venous blood specimen / Unknown Venipuncture / Unknown 10/10/2024 3:07 PM EDT 10/10/2024 3:07 PM EDT Leydi Rojas MD LAB BLOOD ORDERABLES Final R esult [facility] [address] [place] [address] from Last 3 Months Additional Health Concerns Active Problems Noted Date Diagnosed Date Autogenerated Problem 09/20/2024 Insurance [employer] Care Teams Chief Executive Or Managing Director Relationship Specialty Start Date End Date Casimiro Golden DO [address] [place] [address] [place] [address] PCP - General 09/20/24
--- OUTSIDE RECORDS SUMMARY | 2024-10-21 09:56 | XMS_ITS | Encounter Summary ---
Author Organization Healthcare Address [address] [place] [address] Care Team Providers Care Qa Architect Name Role Phone Nellie Claudio Primary Care Provider [phone] Encounter Details Date Type Department Care Team (Late st Contact Info) Description 09/19/2024 Abstract Medical Office [facility] [address] [facility] [address], [address] [place] [address] Carson Coombs Social History Tobacco [...] often do you attend chur ch or worship services? Never 09/20/2024 Do you belong to any clubs o r organizations such as cheondoism groups, unions, fraternal or athletic groups, or [...] and heating? Not hard at all 09/20/2024 [facility] of Occupat ional Health - Occupational Stress [...] any time in the past 12 m [facility], were you homeless or living in a custodial (including now)? No 09/20/2024 Utilities Answer Date [...] file Travel History Travel Start Travel End [place] 10/01/2024 10/05/2024 documented as of this encounter Plan of Treatment Upcoming Encounters Date Type Department Care Team (Late st Contact Info) Description 02/20/2025 8:00 AM EST Hospital Encounter [facility] S Operating Room [address] [place] [address] Nolan Medina MD [address] [phone] 02/20/2025 8:00 AM EST - 02/20/2025 11:45 AM EST Surgery [facility] Operating Room [address] [place] [address] Nolan Medina MD [address] [address] THYROIDECTOMY [[id number] (CPT )] 03/07/2025 3:30 PM EST Office Visit Medical Office Building [facility] [address] [facility] [address], [address] [place] [address] Nolan Medina MD [address] [address] 04/15/2025 1:20 PM EST Office Visit [facility] [address] [place] [address] Leydi Rojas MD [address] [place] [address] 05/31/2025 11:00 AM EDT Office Visit [facility] Endocrinology [address] [place] [address] Chris Chavira MD [address] [place] [address] Scheduled Procedures Name Priority Associated [...] documented as of this encounter Care Teams Qa Architect Relationship Specialty Start Date End Date Nellie Claudio PA [address] [place] [address] PCP - General 06/16/23 09/19/24 documented as of this encounter
--- OUTSIDE RECORDS SUMMARY | 2024-10-21 09:56 | XMS_ITS | Encounter Summary ---
Author Organization Healthcare Address [address] [place] [address] Care Team Providers Care Ice Cream Machine Operator Name Role Phone Casimiro Golden DO Primary Care Provider [phone] Encounter Details Date Type Department Care Team (Late st Contact Info) Description 10/11/2024 Telephone [facility] [address], [address] [place] [address] Kristan Vazquez RN [facility] [...] often do you attend chur ch or voodoo services? Never 09/20/2024 Do you belong to [...] and heating? Not hard at all 09/20/2024 [facility] of Occupat ional Health - Occupational [...] time in the past 12 m [facility], were you homeless or living in a fdc (including now)? No 09/20/2024 Utilities Answer Date [...] st Contact Info) Description 02/20/2025 8:00 AM [facility] Hospital Encounter [facility] Operating Room [address] [place] [address] Nolan Medina MD [address] [address] 02/20/2025 8:00 AM EST - 02/20/2025 11:45 AM [facility] Surgery [facility] S Operating Room [address] [place] [address] Nolan Medina MD [address] [address] THYROIDECTOMY [[id number] (CPT )] 03/07/2025 3:30 PM EST Office Visit Medical [facility] [address] [place] [address] Nolan Medina MD [address] [facility] [address] [place] [address] 04/15/2025 1:20 PM EST Office Visit [facility] [address], [address] [place] [address] Leydi Rojas MD [address] [facility] [address] [place] [address] 05/31/2025 11:00 AM EDT Office Visit [facility] Endocrinology [address] [place] [address] Chris Chavira MD [address] [facility] [address] [place] [address] Scheduled Procedures Name Priority Associated [...] documented as of this encounter Care Teams Ice Cream Machine Operator Relationship Specialty Start Date End Date Casimiro Golden, [address] [place] [address] [place] [address] PCP - General 09/20/24 documented as of this encounter
--- OUTSIDE RECORDS SUMMARY | 2024-10-21 09:56 | XMS_ITS | Encounter Summary ---
Author Organization Healthcare Address [address] [place] [address] Care Team Providers Care Animal Behaviourist Name Role Phone Casimiro Golden Primary Care Provider [phone] Encounter Details Date Type Department Care Team [...] week 09/20/2024 How often do you attend [facility] or oriental orthodox services? Never 09/20/2024 Do you belong to any clubs o r organizations such as baptism groups, unions, fraternal or athletic groups, or [...] any time in the past 12 m [facility], were you homeless or living in a intermediate (including now)? No 09/20/2024 Utilities Answer Date [...] st Contact Info) Description 02/20/2025 8:00 AM [facility] Hospital Encounter [facility] S Operating Room [address] [place] [address] Nolan Medina MD [address] [address] 02/20/2025 8:00 AM EST - 02/20/2025 11:45 AM EST Surgery [facility] S Operating Room [address] [place] [address] Nolan Medina MD 125 [address] [facility] 302 [place] [address] THYROIDECTOMY [[id number] (CPT )] 03/07/2025 3:30 PM EST Office Visit Medical Office Building Surgical Specialties [address], [address] [place] [address] Nolan Medina MD [address] [facility] 302 [place] [address] 04/15/2025 1:20 PM EST Office Visit [facility] [address], [address] [place] [address] Leydi Rojas MD 2195 [facility] 125 [place] [address] 05/31/2025 11:00 AM EDT Office Visit [facility] Endocrinology 2[address] [place] [address] Chris Chavira MD 2195 [facility] 125 [place] [address] Scheduled Procedures Name Priority Associated [...] documented as of this encounter Care Teams Animal Behaviourist Relationship Specialty Start Date End Date Casimiro Golden, DO [address] [place] [address] [place], [place] [address] PCP - General 09/20/24 documented as of this encounter
--- OUTSIDE RECORDS SUMMARY | 2024-10-21 09:56 | XMS_ITS | Encounter Summary ---
Author Organization Healthcare Address [address] [place] [address] Care Team Providers Care Pan Puller Name Role Phone ChicoCasimiro Dhruv WORRELL Primary Care Provider [phone] Encounter Details Date Type Department Care Team (Late st Contact Info) Description 10/11/2024 Results Follow-Up [facility] Endocrinology [address] [place] [address] Leydi Rojas MD [address] [place] [address] Social History Tobacco Use Types [...] often do you attend chur ch or quaker services? Never 09/20/2024 Do you belong to any clubs o r organizations such as mormon groups, unions, fraternal or athletic groups, or [...] and heating? Not hard at all 09/20/2024 [facility] [...] any time in the past 12 m [facility], were you homeless or living in a senior care (including now)? No 09/20/2024 Utilities Answer Date [...] Encounter [facility] S Operating Room [address] [place] [address] Nolan Medina MD [address] [address] 02/20/2025 8:00 AM EST - 02/20/2025 11:45 AM EST Surgery [facility] S Operating Room 310 [place] [address] Nolan Medina MD [address] [address] THYROIDECTOMY [[id number] (CPT )] 03/07/2025 3:30 PM EST Office Visit Medical Office Building Surgical Specialties [address] [facility], [address] [place] [address] Nolan Medina MD 125 E [facility] 302 [place] [address] 04/15/2025 1:20 PM EST Office Visit [facility] [address], [address] [place] [address] Leydi Rojas MD 2195 [facility] 125 [place] [address] 05/31/2025 11:00 AM EDT Office Visit [facility] Endocrinology 2[address] [place] [address] Chris Chavira MD 2195 [facility] 125 [place] [address] Scheduled Procedures Name Priority Associated [...] documented as of this encounter Care Teams Pan Puller Relationship Specialty Start Date End Date Casimiro Golden DO [address] [place] [address] PCP - General 09/20/24 documented as of this encounter
--- OUTSIDE RECORDS SUMMARY | 2024-10-21 09:56 | XMS_ITS | Encounter Summary ---
Author Organization Healthcare Address [address] [place] [address] Care Team Providers Care Biztalk Consultant Name Role Phone Casimiro Golden Primary Care Provider [phone] Encounter Details Date Type Department Care Team [...] week 09/20/2024 How often do you attend [facility] or congregation services? Never 09/20/2024 Do you belong to any clubs o r organizations such as moravian groups, unions, fraternal or athletic groups, or [...] and heating? Not hard at all 09/20/2024 [facility] - Occupational [...] any time in the past 12 m [facility], were you homeless or living in a [...] file Travel History Travel Start Travel End [place] 10/01/2024 10/05/2024 documented as of this encounter Plan of Treatment Upcoming Encounters Date Type Department Care Team ([facility] Contact Info) Description 02/20/2025 8:00 AM [facility] Hospital Encounter [facility] S Operating Room 310 [place] [address] Nolan Medina MD [address] [address] 02/20/2025 8:00 AM EST - 02/20/2025 11:45 AM EST Surgery [facility] Operating Room 310 [place] [address] Nolan Medina MD [address] [address] THYROIDECTOMY [[id number] (CPT )] 03/07/2025 3:30 PM EST Office Visit Medical Office Building Surgical Specialties [address] [facility], [address] [place] [address] Nolan Medina MD [address] [address] 04/15/2025 1:20 PM EST Office Visit [facility] [address], [address] [place] [address] Leydi Rojas MD [address] [place] [address] 05/31/2025 11:00 AM EDT Office Visit [facility] Endocrinology [address] [place] [address] Chris Chavira MD [address] [place] [address] Scheduled Procedures Name Priority Associated [...] documented as of this encounter Care Teams Biztalk Consultant Relationship Specialty Start Date End Date Casimiro Golden DO [address] [place] [address] PCP - General 09/20/24 documented as of this encounter
--- OUTSIDE RECORDS SUMMARY | 2024-10-21 09:57 | XMS_ITS | Encounter Summary ---
Author Organization Healthcare Address [address] [place] [address] Care Team Providers Care Product Promoter Sales Person Name Role Phone Nellie Claudio Primary Care Provider [phone] Casimiro Golden DO Primary Care Provider [phone] Encounter Details Date Type Department Care Team (Late Contact Info) Description 05/25/2024 Orders Only External Location [address] [place] [address] Provider, External Social History Tobacco Use Types [...] file Travel History Travel Start Travel End [place] 10/01/2024 10/05/2024 documented as of this encounter [...] Description 02/20/2025 8:00 AM EST Hospital Encounter [facility] S Operating Room [address] [place] [address] Nolan Medina MD [address] [address] 02/20/2025 8:00 AM EST - 02/20/2025 11:45 AM EST Surgery [facility] S Operating Room [address] [place] [address] Nolan Medina MD [address] [address] THYROIDECTOMY [[id number] (CPT )] 03/07/2025 3:30 PM EST Office Visit Medical Office Building Surgical Specialties 125 [facility] [address] [place] [address] Nolan Medina MD [address] [address] 04/15/2025 1:20 PM EST Office Visit [facility] 135 [facility] 301 [place] [address] Leydi Rojas MD [address] [address] 05/31/2025 11:00 AM EDT Office Visit [facility] Endocrinology [address] [place] [address] Chris Chavira MD [address] [address] Scheduled Procedures Name Priority Associated [...] documented as of this encounter Care Teams Product Promoter Sales Person Relationship Specialty Start Date End Date Nellie Claudio PA [address] [place] [address] PCP - General 06/16/23 09/19/24 Casimiro Golden DO 1210 [facility] [address] [place] [address] PCP - General 09/20/24 documented as of this encounter
== END 2024-10-21 23:59 | disposition home or self-care (01) ==
LOC: RAD 09:55 → RT 10:04
PROVIDERS: PCP Internal Medicine; Visit Provider Student in an Organized Health Care Education/Training Program
DX: M79.605 Pain in left leg (principal); R79.89 Other specified abnormal findings of blood chemistry
CPT/HCPCS: 93971

== ENCOUNTER 2025-01-15 15:56 | Outpatient (CLI) | payer MEDICAID, SELFPAY ==
[2025-01-15 17:08] LABS: Hematocrit 38.1 % (37.0-47.0); Hemoglobin 12.2 g/dL (12.2-16.2); Immature Granulocytes % 0.3 %; Mean Corpuscular HGB Conc 32.0 g/dL (31.8-35.4); Mean Corpuscular Hemoglobin 25.5 pg (27.0-31.2); Mean Corpuscular Volume 79.7 fl (81-99); Nucleated Red Blood Cells % 0 %; Platelet Count 344 K/mm3 (142-424); Red Blood Count 4.78 M/mm3 (4.20-5.40); Red Cell Distribution Width-SD 43.1 fL; White Blood Count 13.6 K/mm3 (4.8-10.8)
[2025-01-15 18:50] LABS: Iron 54 ug/dL (37-170)
[2025-01-15 19:04] LABS: Total Iron Binding Capacity 359 ug/dL (265-497)
[2025-01-15 19:26] LABS: Ferritin 12.8 ng/ml (6.24-137)
--- OUTSIDE RECORDS SUMMARY | 2025-01-16 12:28 | XMS_ITS | Encounter Summary ---
Author Organization Healthcare Address [address] [place] [address] Care Team Providers Care Digital Asset Coordinator Name Role Phone ChicoCasimiro Dhruv WORRELL Primary Care Provider Encounter Details Date Type Department Care Team (Late st Contact Info) Description 10/11/2024 Results Follow-Up [facility] Endocrinology [address] [place] [address] Leydi Rojas MD [address] [place] [address] Social History Tobacco Use Types [...] often do you attend chur ch or faith services? Never 09/20/2024 Do you belong to [...] and heating? Not hard at all 09/20/2024 [facility] [...] any time in the past 12 m [facility], were you homeless or living in [...] on file Sexual Orientation Not on file documented as of this encounter Plan of Treatment Upcoming Encounters Date Type Department Care Team ([facility] st Contact Info) Description 02/20/2025 8:00 AM [facility] Hospital Encounter [facility] S Operating Room 310 [place] [address] Nolan Medina MD [address] [address] 02/20/2025 8:00 AM EST - 02/20/2025 11:45 AM EST Surgery [facility] S Operating Room 310 [place] [address] Nolan Medina MD [address] [address] THYROIDECTOMY [[id number] (CPT )] 03/07/2025 3:30 PM EST Office Visit Medical Office Building Surgical Specialties [address] [facility], [address] [place] [address] Nolan Medina MD [address] [place] [address] 04/15/2025 1:20 PM EST Office Visit [facility] [address], [address] [place] [address] Leydi Rojas MD 2195 [facility] 125 [place] [address] 05/31/2025 11:00 AM EDT Office Visit [facility] Endocrinology [address] [place] [address] Chris Chavira MD 2195 [facility] 125 [place] [address] Scheduled Procedures Name Priority Associated [...] documented as of this encounter Care Teams Digital Asset Coordinator Relationship Specialty Start Date End Date Casimiro Golden DO [address] [place] [address] PCP - General 09/20/24 documented as of this encounter
--- OUTSIDE RECORDS SUMMARY | 2025-01-16 12:28 | XMS_ITS | Encounter Summary ---
Author Organization Healthcare Address [address] [place] [address] Care Team Providers Care Weigher Bulker Name Role Phone Nellie Claudio Primary Care Provider [phone] Casimiro Golden DO Primary Care Provider [phone] Encounter Details Date Type Department Care Team (Late st Contact Info) Description 05/25/2024 Orders Only External Location 800 [place] [address] Provider, External Social History Tobacco Use Types [...] on file documented as of this encounter Functional Status [...] Hospital Encounter [facility] S Operating Room 310 [place] [address] Nolan Medina MD [address] [address] 02/20/2025 8:00 AM EST - 02/20/2025 11:45 AM EST Surgery [facility] S Operating Room [address] [place] [address] Nolan Medina MD [address] [address] THYROIDECTOMY [[id number] (CPT )] 03/07/2025 3:30 PM EST Office Visit Medical Office Building Surgical Specialties [address] [facility] [place] [address] [place] [address] Nolan Medina MD [address] [address] 04/15/2025 1:20 PM EST Office Visit [facility] [address] [facility] [address] [place] [address] Leydi Rojas MD [address] [address] 05/31/2025 11:00 AM EDT Office Visit [facility] Endocrinology [address] [place] [address] Chris Chavira MD [address] [address] Scheduled Procedures Name Priority Associated [...] documented as of this encounter Care Teams Weigher Bulker Relationship Specialty Start Date End Date Nellie Claudio PA [address] [place] [address] PCP - General 06/16/23 09/19/24 Casimiro Golden DO [address] [place] [address] PCP - General 09/20/24 documented as of this encounter
--- OUTSIDE RECORDS SUMMARY | 2025-01-16 12:28 | XMS_ITS | Clinical Summary ---
Author Organization [facility] Address [address] [place] [address] Care Team Providers Care Acute Care Certified Nursing Assistant Name Role Phone Casimiro Golden Dhruv WORRELL Primary Care Provider [phone] Allergies Active Allergy Reactions Criticality Noted Date Comments Peanut Allergen Powder-Dnfp Hives,Nausea Medium 2023 Penicillins Hives,Itching Medium 06/22/2023 Soybean Oil Hives,Rash Medium 06/22/2023 Medications Dulera 100-5 MCG/ACT inhaler Inhale 2 puffs 2 (two) times a day. 04/07/2023 Active cholecalciferol (Vitamin D-3) 25 MCG (1000 UT) tabletIndication s:Vitamin D deficiency Take 1 tablet (1,000 Units) by mouth 1 (one) time each day. 90 tablet 1 04/12/2024 Active levothyroxine (Synthroid, Levoxyl) 75 MCG tabletIndication s:Hypothyroidism , unspecified type Take 1 tablet by mouth daily. 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/25/2024 Hypothyroidism, unspecified 05/25/2024 Fever, unspecified 05/17/2024 Nasal congestion 05/17/2024 Other fatigue 05/17/2024 Iron deficiency 04/11/2024 Other hypersomnia 04/11/2024 Vitamin D deficiency, unspecified 04/11/2024 Other synovitis and tenosynovitis, multiple site s 02/05/2024 Pain in left hand 02/05/2024 Pain in right hand 02/05/2024 Other muscle spasm 12/07/2023 Cervicalgia 12/07/2023 Athyroidism (acquired) 06/22/2023 Mechanical entropion of unspecified eye, unspeci fied eyelid 05/11/2023 Headache, unspecified 11/06/2022 Resolved Problems Problem Noted Date Diagnosed Date Resolved Date Diarrhea, unspecified 07/11/20242024 Nausea with vomiting, unspecified 07/11/2024 12/23/2024 Acute upper respiratory infe ction, unspecified 05/17/2024 12/23/2024 Noninfective gastroenteritis and colitis, unspecified 04/24/2024 12/23/2024 Regular astigmatism, bilateral 05/11/2023 12/23/2024 COVID-19 11/06/2022 12/09/2024 Acute sinusitis, unspecified 11/03/2022 12/09/2024 Acute pharyngitis, unspecified 11/03/2022 12/09/2024 Other malaise 11/03/2022 12/09/2024 Unspecified abdominal pain 08/06/2022 0 12/09/2024 Family History Medical History Relation Name Comments [...] How often do you attend chur or lutheran services? Never 09/20/2024 Do you [...] and heating? Not hard at all 09/20/2024 [facility] - Occupational Stress [...] any time in the past 12 m [facility], were you homeless or living in [...] on file Sexual Orientation Not on file Last Filed Vital Signs Vital Sign Reading [...] Encounter [facility] S Operating Room [address] [place] [address] Nolan Medina MD [address] [address] 02/20/2025 8:00 AM EST - 02/20/2025 11:45 AM EST Surgery [facility] S Operating Room [address] [place] [address] Nolan Medina MD [address] [address] THYROIDECTOMY [[id number] (CPT )] 03/07/2025 3:30 PM EST Office Visit Medical Office Building Surgical Specialties [address] [facility], [address] [place] [address] Nolan Medina MD [address] [address] 04/15/2025 1:20 PM EST Office Visit [facility] [address], [address] [place] [address] Leydi Rojas MD [address] [address] 05/31/2025 11:00 AM EDT Office Visit [facility] Endocrinology [address] [place] [address] Chris Chavira MD [address] [address] Scheduled Procedures Name Priority Associated Diagnoses Date/Ti me THYROIDECTOMY 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 8:00 AM EST Health Maintenance Due Date Last Done Comments [facility]-HIV Screening 1995 [facility]-Hepatitis C Screening 1995 [facility]-/Child/Adol SDOH Screenings 1995 [facility]-Varicella Vaccines (1 of 2 - 13+ 2-dose series) 11/29/2008 [facility]-DTaP,Tdap,and Td Vaccines (1 - Tdap) 11/29/2014 [facility]-Hepatitis B Vaccines (1 of 3 - 19+ 3-dose series) 11/29/2014 [facility]-Pap Smear 11/29/2016 [id number] Vaccine (3 - Pfizer risk series) 06/07/2020 05/10/2020, 04/19/2020 HPV Vaccines (1 - 3-dose SCDM series) 11/29/2022 [facility]-Influenza Vaccine (#1) 2024 [facility]- SDOH Screenings [...] Plan Autogenerated Problem No Brielle Nicole MD Additional Health Concerns Active Problems Noted Date Diagnosed Date Autogenerated Problem 09/20/2024 Insurance [facility] MEDICAID Care Teams Acute Care Certified Nursing Assistant Relationship Specialty Start Date End Date Casimiro Golden DO [address] [place] [address] [place] [address] PCP - General 09/20/24
== END 2025-01-15 23:59 ==
LOC: LAB.DROPOF 01-16 12:26
PROVIDERS: PCP Internal Medicine; Visit Provider Internal Medicine
DX: Z00.00 Encounter for general adult medical examination without abnormal findings (principal); D50.9 Iron deficiency anemia, unspecified
CPT/HCPCS: 82728; 83540; 83550; 85025